=== PATIENT | female | born 1990 ===

== ENCOUNTER 2020-04-19 10:02 | Outpatient (REF) | payer OTHER, SELFPAY ==
[2020-04-19 10:30] LABS: MANUAL DIFF FLAG NO
[2020-04-19 10:34] LABS: Basophils Percent Auto 0.4 % (0-2); Eosinophils Absolute Auto 0.2 X10*3/uL (0.0-0.4); Eosinophils Percent Auto 3.1 % (0-4); Hematocrit 36.9 % (37-47); Hemoglobin 11.3 g/dl (12.0-16.0); Imm Gran Abs Auto 0.02 X10*3/uL (0.00-0.03); Imm Gran Pct Auto 0.3 % (0.0-0.4); Lymphocytes Absolute Auto 1.5 X10*3/uL (1.2-4.9); Lymphocytes Percent Auto 20.7 % (20-40); Mean Corpuscular HGB Conc 30.6 g/dl (31.0-35.0); Mean Corpuscular Hemoglobin 23.1 pg (27.0-33.0); Mean Corpuscular Volume 75.5 fL (80-98); Mean Platelet Volume 9.7 fL (9.4-12.3); Monocytes Absolute Auto 0.5 X10*3/uL (0.1-1.2); Monocytes Percent Auto 6.4 % (2-11); Neutrophils Absolute Auto 5.1 X10*3/uL (2.0-8.3); Neutrophils Percent Auto 69.1 % (45-73); Platelet Count 407 X10*3/uL (160-400); Red Blood Count 4.89 X10*6/uL (4.20-5.50); White Blood Count 7.4 X10*3/uL (4.8-10.8)
[2020-04-19 11:10] LABS: Alanine Aminotransferase 13 U/L (0-31); Albumin Level 4.1 g/dL (3.5-5.0); Alkaline Phosphatase 89 U/L (39-117); Anion Gap 12 (12-20); Aspartate Amino Transferase 12 U/L (5-31); Bilirubin Total 0.4 mg/dL (0.0-1.0); Blood Urea Nitrogen 6 mg/dL (9-16); Carbon Dioxide 26 mmol/L (22-29); Chloride 104 mmol/L (96-108); Cholesterol 159 mg/dL; Estimated Glomerular Filt Rate > 60; Glucose Fasting 84 mg/dL (60-99); HDL Cholesterol 48 mg/dL; LDL Cholesterol Calculated 102 mg/dl; Sodium 138 mmol/L (135-145); Total Protein 7.5 g/dL (6.5-8.0); Triglycerides 48 mg/dL
[2020-04-19 11:24] LABS: Syphilis Screen Nonreactive (Nonreactive)
[2020-04-20 09:02] LABS: HIV AB/AG Nonreactive (Nonreactive); HIV Num 1 0.06 S/CO (0.00-0.99); ~HepC Num1 0.11 S/CO (0.00-0.79); ~Hepatitis C Antibody Nonreactive (Nonreactive)
[2020-04-20 09:27] LABS: Herpes Simplex Type 1 IgG >58.00 index; Herpes Simplex Type 2 IgG <0.90 index
== END 2020-04-19 10:03 | disposition home or self-care (01) ==
LOC: HO.LAB 10:02
PROVIDERS: PCP Internal Medicine; Visit Provider Internal Medicine
DX: Z00.00 Encounter for general adult medical examination without abnormal findings (principal); E11.9 Type 2 diabetes mellitus without complications; Z20.2 Contact with and (suspected) exposure to infections with a predominantly sexual mode of transmission
CPT/HCPCS: 36415; 80053; 80061; 85025; 86695; 86696; 86780; 86803; 87389

== ENCOUNTER 2020-10-06 01:19 | Inpatient (IN) | payer OTHER, SELFPAY ==
[2020-10-06] VITALS (13 sets, daily range): BP systolic 101–140; BP diastolic 53–76; PULSE 60–93; RESP 14–18; TEMP 36.1–37.4; O2SAT 93–100; BMI 42.0
--- NOTE | ~2020-10-06 | US_ITS ---
EXAMINATION: US ABDOMEN LIMITED CLINICAL INFORMATION: Gallbladder with known gallstones. Pain.. COMPARISON: None TECHNIQUE: Real-time imaging of the right upper quadrant abdominal viscera. FINDINGS: PANCREAS: Pancreatic head and body are unremarkable. Tail is obscured by gas. LIVER: The liver is normal in size. The liver contour is normal. There is diffuse increased liver parenchymal echogenicity, consistent with hepatic steatosis. No focal hepatic lesion. There is no intrahepatic biliary duct dilatation seen. GALLBLADDER: Stones and sludge are seen in the gallbladder lumen. The gallbladder wall measures 0.3 cm in thickness, the upper limit of normal. No wall edema or pericholecystic fluid. The offset label rewinder reports a positive sonographic Burrows's sign. COMMON BILE DUCT: Normal in caliber measuring 0.3 cm in diameter. RIGHT KIDNEY: Normal. No hydronephrosis. No renal calculi or focal parenchymal lesions. The kidney measures 10.7 cm in maximum dimension. FREE FLUID: None. US/US abdomen limited IMPRESSION: Cholelithiasis with gallbladder sludge. Gallbladder wall. Limited of normal in thickness with offset label rewinder reported positive Burrows's sign. This is suspicious for cholecystitis. If clinically indicated a nuclear medicine biliary scan could be performed.
--- NOTE | 2020-10-06 01:32 | ED.ABDPAIN ---
HPI - Abdominal Pain General Chief Complaint: Abdominal Pain Stated Complaint: gallstones Time Seen by Provider: 10/06/20 01:24 Source: patient Mode of arrival: ambulatory Limitations: no limitations History of Present Illness HPI narrative: dx with gallstones on 10/04 at [facility] told to follow up with surgery as outpatient - PRN tylenol and motrin for pain MD elicited complaint: abdominal pain Pertinent past history: other (gallstones) Onset (ago): day(s) (since 10/03 but ate nuts and had another attack tonight) Pain Consistency: intermittent Location: RUQ Severity: moderate Quality: stabbing Radiation: RUQ and epigastric Migration to: no migration Exacerbating factors: eating Relieving factors: nothing Context: history of similar episodes Associated symptoms: nausea and vomiting Related Data Home Medications Medication Instructions Recorded Confirmed ofloxacin 1 drp OPHTHALMIC-RIGHT QID 10/06/20 10/06/20 Allergies Allergy/AdvReac Type Severity Reaction Status Date / Time No Known Allergies Allergy Verified 08/21/20 14:10 Review of Systems Review of Systems Constitutional : No Weight loss, No Fever, No Chills ENT/Mouth : No sore throat, No Rhinorrhea Eyes: No Swelling, No Redness Cardiovascular : No Chest Pain, No SOB, NoEdema Respiratory : No Cough, No Sputum, No Wheezing Gastrointestinal : Positive Nausea, Positive Vomiting, no Diarrhea, positive abdominal Pain, No Hematochezia, No Melena Genitourinary : No Dysuria, No Urinary Frequency, No Hematuria, No Urgency Musculoskeletal : No joint pain, No Myalgias, No Joint Swelling Skin : No Skin Lesions, No rash Neuro : No Weakness, No Numbness, No Dizziness, No Headache Psych : No Anxiety/Panic, No Depression Heme/Lymph: No Bruising, No Lymphadenopathy Endocrine : No Polyuria, No Polydipsia All other systems reviewed and are negative. Physical Exam Vital Signs: Vital Signs: Last Vital Signs Temp 98.6 F 10/06/20 04:00 Pulse 65 10/06/20 06:00 Resp 15 10/06/20 06:00 BP 122/53 L 10/06/20 06:00 Pulse Ox 98 10/06/20 06:00 Body Mass Index 42.0 Appearance: Alert. Oriented X3. No acute distress. Eyes: Pupils equal, round and reactive to light. ENT: Pharynx normal. Neck: Normal inspection. Neck supple. CVS: Normal heart rate and rhythm. Pulses normal. Respiratory: No respiratory distress. Breath sounds normal. Abdomen: Soft and moderate RUQ ttp + [place] sign no rebound or guarding Skin: Skin warm and dry. Normal skin color. Normal skin turgor. Extremities: No lower extremity edema. No calf ttp Neuro: Oriented X 3. No motor deficit. No sensory deficit. Course Course Course Narrative: no signs of sepsis at this time. will consult surgery in AM. IV zosyn no signs of sepsis at this time signed out to Dr. Donato pending evaluation by Dr. Mckeon MDM - Abdominal Pain MDM Narrative Medical decision making narrative: 29 yo female known gallstones dx on 10/04 here with another attack post eating nuts likely - at this time labs, IVF, IV morphine/Toradol for pain, US to evaluate for acute cholecystitis, dispo per results and improvement Differential Diagnosis Differential diagnosis: Likely abdominal pain and gastritis; Unlikely aortic dissection and acute appendicitis Lab Data Result diagrams: 10/06/20 02:04 10/06/20 02:04 Labs: Lab Results 10/06/20 10/06/20 10/06/20 Range/Units 02:04 02:04 02:04 WBC 11.1 H (4.8-10.8) X10*3/uL RBC 4.60 (4.20-5.50) X10*6/uL Hgb 10.8 L (12.0-16.0) g/dl Hct 34.2 L (37-47) % MCV 74.3 L (80-98) fL MCH 23.5 L (27.0-33.0) pg MCHC 31.6 (31.0-35.0) g/dl RDW 15.4 (11.0-16.0) % Plt Count 395 (160-400) X10*3/uL MPV 9.6 (9.4-12.3) fL Immature Gran % (Auto) 0.2 (0.0-0.4) % Neut % (Auto) 65.7 (45-73) % Lymph % (Auto) 21.9 (20-40) % [place] % (Auto) 6.9 (2-11) % Eos % (Auto) 5.1 H (0-4) % Baso % (Auto) 0.2 (0-2) % Lymph # (Auto) 2.4 (1.2-4.9) X10*3/uL [place] # (Auto) 0.8 (0.1-1.2) X10*3/uL Eos # (Auto) 0.6 H (0.0-0.4) X10*3/uL Baso # (Auto) 0.0 (0.0-0.2) X10*3/uL Abs Immat Gran (auto) 0.02 (0.00-0.03) X10*3/uL Absolute Neuts (auto) 7.3 (2.0-8.3) X10*3/uL Absolute Nucleated RBC 0.000 (0.0-0.012) X10*3/uL Nucleated RBC % (auto) 0.0 (0.0-0.2) /100WBC Sodium 139 (135-145) mmol/L Potassium 3.8 (3.3-5.1) mmol/L Chloride 106 (96-108) mmol/L Carbon Dioxide 26 (22-29) mmol/L Anion Gap 11 L (12-20) BUN 8 L (9-16) mg/dL Creatinine 0.70 (0.5-1.4) mg/dL Estim Creat Clear Calc 124.1 Estimated GFR > 60 Random Glucose 108 (60-115) mg/dL Calcium 9.4 (8.4-10.2) mg/dL Magnesium 1.7 (1.6-2.6) mg/dL Total Bilirubin 0.2 (0.0-1.0) mg/dL Direct Bilirubin < 0.2 (0.0-0.5) mg/dL AST 10 (5-31) U/L ALT 11 (0-31) U/L Alkaline Phosphatase 94 (39-117) U/L Total Protein 6.9 (6.5-8.0) g/dL Albumin 3.7 (3.5-5.0) g/dL Lipase 18 (8-78) U/L Urine Color YELLOW Urine Appearance CLOUDY Urine pH 7.5 (5.0-8.0) Ur Specific [place] 1.020 (1.005-1.025) Urine Protein NEG (NEG-TRACE) MG/DL Urine Glucose (UA) NEG (NEG) MG/DL Urine Ketones NEG (NEG) MG/DL Urine Blood NEG (NEG) Urine Nitrite NEG (NEG) Ur Leukocyte Esterase NEG (NEG) Urine Test (NEGATIVE) COVID-19 ([facility]) (Negative) COVID-19 Clin Com 10/06/20 10/06/20 Range/Units 02:04 04:05 WBC (4.8-10.8) X10*3/uL RBC (4.20-5.50) X10*6/uL Hgb (12.0-16.0) g/dl Hct (37-47) % MCV (80-98) fL MCH (27.0-33.0) pg MCHC (31.0-35.0) g/dl RDW (11.0-16.0) % Plt Count (160-400) X10*3/uL MPV (9.4-12.3) fL Immature Gran % (Auto) (0.0-0.4) % Neut % (Auto) (45-73) % Lymph % (Auto) (20-40) % [place] % (Auto) (2-11) % Eos % (Auto) (0-4) % Baso % (Auto) (0-2) % Lymph # (Auto) (1.2-4.9) X10*3/uL [place] # (Auto) (0.1-1.2) X10*3/uL Eos # (Auto) (0.0-0.4) X10*3/uL Baso # (Auto) (0.0-0.2) X10*3/uL Abs Immat Gran (auto) (0.00-0.03) X10*3/uL Absolute Neuts (auto) (2.0-8.3) X10*3/uL Absolute Nucleated RBC (0.0-0.012) X10*3/uL Nucleated RBC % (auto) (0.0-0.2) /100WBC Sodium (135-145) mmol/L Potassium (3.3-5.1) mmol/L Chloride (96-108) mmol/L Carbon Dioxide (22-29) mmol/L Anion Gap (12-20) BUN (9-16) mg/dL Creatinine (0.5-1.4) mg/dL Estim Creat Clear Calc Estimated GFR Random Glucose (60-115) mg/dL Calcium (8.4-10.2) mg/dL Magnesium (1.6-2.6) mg/dL Total Bilirubin (0.0-1.0) mg/dL Direct Bilirubin (0.0-0.5) mg/dL AST (5-31) U/L ALT (0-31) U/L Alkaline Phosphatase (39-117) U/L Total Protein (6.5-8.0) g/dL Albumin (3.5-5.0) g/dL Lipase (8-78) U/L Urine Color Urine Appearance Urine pH (5.0-8.0) Ur Specific [place] (1.005-1.025) Urine Protein (NEG-TRACE) MG/DL Urine Glucose (UA) (NEG) MG/DL Urine Ketones (NEG) MG/DL Urine Blood (NEG) Urine Nitrite (NEG) Ur Leukocyte Esterase (NEG) Urine Test NEGATIVE (NEGATIVE) COVID-19 ([facility]ED) Negative (Negative) COVID-19 Clin Com See Note Discharge Plan Discharge Clinical Impression: Biliary colic Abdominal pain Qualifiers: Abdominal location: right upper quadrant Qualified Code(s): R10.11 - Right upper quadrant pain Prescriptions: No Action ofloxacin 0.3 % drops 1 drp ophthalmic-Right QID RF: 0 PMFSH Past Medical History Attestation statement: The following information was validated with the patient. Medical History Gallstone Surgical History History of 3 sections History of tubal ligation Family History Family History Father HTN (hypertension) Diabetes Mother No problems noted. Maternal Grandfather Prostate cancer Social History Social History Alcohol intake: never Patient Tobacco Use Status: Never used Tobacco Use of substances other than those prescribed or required for medical reasons: No Advance Directives: No Advance Directives Information Provided: No Patient : No
[2020-10-06 02:09] LABS: MANUAL DIFF FLAG NO
[2020-10-06 02:10] LABS: Basophils Percent Auto 0.2 % (0-2); Eosinophils Absolute Auto 0.6 X10*3/uL (0.0-0.4); Eosinophils Percent Auto 5.1 % (0-4); Hematocrit 34.2 % (37-47); Hemoglobin 10.8 g/dl (12.0-16.0); Imm Gran Abs Auto 0.02 X10*3/uL (0.00-0.03); Imm Gran Pct Auto 0.2 % (0.0-0.4); Lymphocytes Absolute Auto 2.4 X10*3/uL (1.2-4.9); Lymphocytes Percent Auto 21.9 % (20-40); Mean Corpuscular HGB Conc 31.6 g/dl (31.0-35.0); Mean Corpuscular Hemoglobin 23.5 pg (27.0-33.0); Mean Corpuscular Volume 74.3 fL (80-98); Mean Platelet Volume 9.6 fL (9.4-12.3); Monocytes Absolute Auto 0.8 X10*3/uL (0.1-1.2); Monocytes Percent Auto 6.9 % (2-11); Neutrophils Absolute Auto 7.3 X10*3/uL (2.0-8.3); Neutrophils Percent Auto 65.7 % (45-73); Platelet Count 395 X10*3/uL (160-400); Red Cell Distribution Width 15.4 % (11.0-16.0); White Blood Count 11.1 X10*3/uL (4.8-10.8)
[2020-10-06 02:12] LABS: Glucose Urine UA NEG (NEG); Leukocyte Esterase Urine NEG (NEG); Nitrite Urine NEG (NEG); PH 7.5 (5.0-8.0); Urine Blood NEG (NEG); Urine Ketones NEG (NEG); Urine Protein NEG (NEG-TRACE)
[2020-10-06 02:14] LABS: Appearance Urine CLOUDY; Color Urine YELLOW
[2020-10-06 02:15] LABS: UPreg QC Valid YES; Urine Pregnancy NEGATIVE (NEGATIVE)
[2020-10-06 02:38] LABS: Alanine Aminotransferase 11 U/L (0-31); Albumin Level 3.7 g/dL (3.5-5.0); Alkaline Phosphatase 94 U/L (39-117); Anion Gap 11 (12-20); Aspartate Amino Transferase 10 U/L (5-31); Bilirubin Direct < 0.2 mg/dL (0.0-0.5); Bilirubin Total 0.2 mg/dL (0.0-1.0); Blood Urea Nitrogen 8 mg/dL (9-16); Calcium 9.4 mg/dL (8.4-10.2); Carbon Dioxide 26 mmol/L (22-29); Chloride 106 mmol/L (96-108); Creatinine Clr Calc Pharmacy 124.1; Estimated Glomerular Filt Rate > 60; Glucose Random 108 mg/dL (60-115); Lipase 18 U/L (8-78); Magnesium 1.7 mg/dL (1.6-2.6); Potassium 3.8 mmol/L (3.3-5.1); Sodium 139 mmol/L (135-145); Total Protein 6.9 g/dL (6.5-8.0)
[2020-10-06] MEDS: 0.9 % Sodium Chloride 1,000 ML 999 ML IVCONT (02:47)
[2020-10-06] MEDS: Ketorolac Tromethamine 30 MG/ML VIAL IVPUSH (02:47)
[2020-10-06] MEDS: Morphine Sulfate 4 MG/ML CARTRIDGE IVPUSH (02:48)
[2020-10-06] MEDS: ondansetron HCL 4 MG/2 ML VIAL IVPUSH (02:48)
[2020-10-06] MEDS: Piperacillin Sodium/Tazobactam 3.375 GM in 0.9 % Sodium Chloride 50 ML IV (04:02)
[2020-10-06 04:30] LABS: COVID-19 Test Negative (Negative)
--- NOTE | 2020-10-06 07:37 | HE.PHANOTE ---
Pharmacy has completed the medication reconciliation and there were no significant medication issues requiring provider attention. Rubia Jalloh PharmD
--- NOTE | 2020-10-06 08:30 | PC.NURSE ---
Respiratory therapy at bedside.
--- NOTE | 2020-10-06 09:00 | PC.NURSE ---
This specification writer called to inquire on pt's plan of care and surgical consult. Was told Dr. Mckeon was in surgery at the moment. No specific time given. Pt sleeping at this time.
--- NOTE | 2020-10-06 14:14 | P.HPGS_ITS ---
History of Present Illness History of Present Illness Date of Service: 10/06/20 Narrative: Zhanna Schaffer is a 29 year old female who came to the emergency room last night because of abdominal pain. She describes this as on the right upper quadrant and she states that she has had been having this periodically for about 4 months now. However, she says this has been severe since yesterday. She has some nausea as well. She says the pain has been persistent since last night. She denies any diarrhea. She says she was in [facility] ER 2 days ago with the same symptoms. She says that she was sent home from there despite her pain. Review of Systems Constitutional: Constitutional: Denies chills and Denies fever(s) Cardiovascular: Cardiovascular: Denies chest pain, Denies dyspnea and Denies dyspnea on exertion Respiratory: Respiratory: Denies cough, Denies dyspnea and Denies dyspnea on exertion Gastrointestinal: Gastrointestinal: Denies hematochezia and Denies change in bowel habits Genitourinary: Genitourinary: Denies hematuria Musculoskeletal: Musculoskeletal: Denies back pain and Denies limited range of motion Neurologic: Denies focal weakness and Denies convulsions Psychiatric: Psychiatric: Denies depression and Denies mood swings PMFSH Past Medical History Medical History (Updated 10/06/20 @ 14:18 by Esequiel Mckeon MD) Gallstone Gallstones Family History Family History Father HTN (hypertension) Diabetes Mother No problems noted. Maternal Grandfather Prostate cancer Surgical History Surgical History History of 3 sections History of tubal ligation Social History Social History Alcohol intake: never Patient Tobacco Use Status: Never used Tobacco Second Hand Smoke Exposure: No Use of substances other than those prescribed or required for medical reasons: No Are you DNR?: No Advance Directives: No Advance Directives Information Provided: No Advance Directives on File: No Patient : No Meds Allergies Allergy/AdvReac Type Severity Reaction Status Date / Time No Known Allergies Allergy Verified 08/21/20 14:10 Active Medications: Current Medications Generic Name Dose Route Start Last Admin Trade Name Freq PRN Reason Stop Dose Admin Cefotetan Disodium 2 gm/ 50 mls @ 100 mls/hr 10/06/20 14:11 Sodium Chloride IV 10/06/20 14:40 PREOP ONE Pharmacy Consult 1 each 10/06/20 02:59 Consult Rx Perform Med Rec MISCELLANE ONCE PRN Consult order Sodium Chloride 3 ml 10/06/20 16:00 0.9 % Sodium Chloride Flush 3 Ml Syringe IVFLUSH QSHIFT FABY Physical Exam Vital Signs: Vital Signs: Last Vital Signs Temp 98.6 F 10/06/20 04:00 Pulse 65 10/06/20 06:00 Resp 15 10/06/20 06:00 BP 122/53 L 10/06/20 06:00 Pulse Ox 98 10/06/20 06:00 Body Mass Index 42.0 Const: General: no acute distress Orientation/consciousness: patient oriented x3 Neck: Neck: Yes no lymphadenopathy Resp: Auscultation: clear to auscultation bilaterally Cardio: Rhythm: regular rhythm GI: Other: Tender on the right upper quadrant Palpation (GI): Soft to palpation, nontender and no guarding Neuro: General: patient oriented x3 Results Results Labs: Short CBC 10/06/20 Range/Units 02:04 WBC 11.1 H (4.8-10.8) X10*3/uL Hgb 10.8 L (12.0-16.0) g/dl Hct 34.2 L (37-47) % Plt Count 395 (160-400) X10*3/uL BMP 10/06/20 02:04 Sodium 139 Potassium 3.8 Chloride 106 Carbon Dioxide 26 BUN 8 L Creatinine 0.70 Calcium 9.4 Liver Function 10/06/20 Range/Units 02:04 Total Bilirubin 0.2 (0.0-1.0) mg/dL Direct Bilirubin < 0.2 (0.0-0.5) mg/dL AST 10 (5-31) U/L ALT 11 (0-31) U/L Alkaline Phosphatase 94 (39-117) U/L Albumin 3.7 (3.5-5.0) g/dL Urine 10/06/20 10/06/20 Range/Units 02:04 02:04 Urine Color YELLOW Urine Appearance CLOUDY Urine pH 7.5 (5.0-8.0) Ur Specific [place] 1.020 (1.005-1.025) Urine Protein NEG (NEG-TRACE) MG/DL Urine Glucose (UA) NEG (NEG) MG/DL Urine Test NEGATIVE (NEGATIVE) Abdominal ultrasound report/results: report reviewed and image reviewed Assessment and Plan (1) Gallstones: Status: Acute She has gallstones with persistent right upper quadrant pain. She says she does not feel she will be able to go home with this pain. Her ultrasound shows gallstones without obvious gallbladder wall thickening. However, the patient states that she has been having this for months now but this has been persistent since yesterday. I will therefore schedule her for laparoscopic cholecystectomy, possible open cholecystectomy now. I explained to her the technique of this procedure. I re viewed the risks including but not limited to bleeding, infection, injury to the bowel, liver, bile ducts, as well as the benefits and alternatives. She says she wants to proceed today. Her LFTs are within normal. Quality Stroke Does the patient have a stroke diagnosis?: No VTE Prior VTE?: No VTE Risk Level:: Surgical - low VTE Device Contraindication: Treatment Not Indicated VTE Drug Contraindication: Treatment Not Indicated Procedures Date of Service Date of Service: 10/06/20
--- NOTE | 2020-10-06 14:27 | PC.NURSE ---
Dr. Mckeon in to ed to evaluate pt for surgery. Report given to nurse in short stay. Pt transported to surgery.
--- NOTE | 2020-10-06 14:35 | P.CONAN_ITS ---
[facility] Active Problems Active Problems: All Active Problems (Updated 10/06/20 @ 14:18 by Esequiel escamilla MD) Gallstones (Acute) Physical exam, pre-employment (Acute) Physical exam (Acute) Exposure to STD (Acute) Contact dermatitis (Acute) Biliary colic (Acute) Abdominal pain (Acute) Past Medical History Medical History (Updated 10/06/20 @ 14:18 by Esequiel Mckeon MD) Gallstone Gallstones Family History Family History Father HTN (hypertension) Diabetes Mother No problems noted. Maternal Grandfather Prostate cancer Surgical History Surgical History History of 3 sections History of tubal ligation Social History Social History Alcohol intake: never Patient Tobacco Use Status: Never used Tobacco Second Hand Smoke Exposure: No Use of substances other than those prescribed or required for medical reasons: No Are you DNR?: No Advance Directives: No Advance Directives Information Provided: No Advance Directives on File: No Patient : No Meds Allergies Allergy/AdvReac Type Severity Reaction Status Date / Time No Known Allergies Allergy Verified 08/21/20 14:10 Active Medications: Current Medications Generic Name Dose Route Start Last Admin Trade Name Freq PRN Reason Stop Dose Admin Cefotetan Disodium 2 gm/ 50 mls @ 100 mls/hr 10/06/20 14:11 Sodium Chloride IV 10/06/20 14:40 PREOP ONE Pharmacy Consult 1 each 10/06/20 02:59 Consult Rx Perform Med Rec MISCELLANE ONCE PRN Consult order Sodium Chloride 3 ml 10/06/20 16:00 0.9 % Sodium Chloride Flush 3 Ml Syringe IVFLUSH QSHIFT FABY Sodium Chloride 3 ml 10/06/20 16:00 0.9 % Sodium Chloride Flush 3 Ml Syringe IVFLUSH QSHIFT FABY Home Medications Medication Instructions Recorded Confirmed Last Taken Type No Known Home Meds 10/06/20 10/06/20 Unknown History Exam Exam Date and Time: October 06, 2020 1435 Height,Weight and Vital Signs: Height 5 ft Weight 97.522 kg Last Vital Signs Temp 97.5 F 10/06/20 14:22 Pulse 73 10/06/20 14:22 Resp 18 10/06/20 14:22 BP 101/56 L 10/06/20 14:22 Pulse Ox 98 10/06/20 14:22 Pertinent Lab Results Pertinent Lab Results: Laboratory Tests 10/06/20 10/06/20 10/06/20 02:04 02:04 02:04 WBC 11.1 H RBC 4.60 Hgb 10.8 L Hct 34.2 L MCV 74.3 L MCH 23.5 L MCHC 31.6 RDW 15.4 Plt Count 395 MPV 9.6 Immature Gran % (Auto) 0.2 Neut % (Auto) 65.7 Lymph % (Auto) 21.9 [place] % (Auto) 6.9 Eos % (Auto) 5.1 H Baso % (Auto) 0.2 Lymph # (Auto) 2.4 [place] # (Auto) 0.8 Eos # (Auto) 0.6 H Baso # (Auto) 0.0 Abs Immat Gran (auto) 0.02 Absolute Neuts (auto) 7.3 Absolute Nucleated RBC 0.000 Nucleated RBC % (auto) 0.0 Sodium 139 Potassium 3.8 Chloride 106 Carbon Dioxide 26 Anion Gap 11 L BUN 8 L Creatinine 0.70 Estim Creat Clear Calc 124.1 Estimated GFR > 60 Random Glucose 108 Calcium 9.4 Magnesium 1.7 Total Bilirubin 0.2 Direct Bilirubin < 0.2 AST 10 ALT 11 Alkaline Phosphatase 94 Total Protein 6.9 Albumin 3.7 Lipase 18 Urine Color YELLOW Urine Appearance CLOUDY Urine pH 7.5 Ur Specific [place] 1.020 Urine Protein NEG Urine Glucose (UA) NEG Urine Ketones NEG Urine Blood NEG Urine Nitrite NEG Ur Leukocyte Esterase NEG Urine Test COVID-19 ([facility]) COVID-19 Clin Com 10/06/20 10/06/20 02:04 04:05 WBC RBC Hgb Hct MCV MCH MCHC RDW Plt Count MPV Immature Gran % (Auto) Neut % (Auto) Lymph % (Auto) [place] % (Auto) Eos % (Auto) Baso % (Auto) Lymph # (Auto) [place] # (Auto) Eos # (Auto) Baso # (Auto) Abs Immat Gran (auto) Absolute Neuts (auto) Absolute Nucleated RBC Nucleated RBC % (auto) Sodium Potassium Chloride Carbon Dioxide Anion Gap BUN Creatinine Estim Creat Clear Calc Estimated GFR Random Glucose Calcium Magnesium Total Bilirubin Direct Bilirubin AST ALT Alkaline Phosphatase Total Protein Albumin Lipase Urine Color Urine Appearance Urine pH Ur Specific [place] Urine Protein Urine Glucose (UA) Urine Ketones Urine Blood Urine Nitrite Ur Leukocyte Esterase Urine Test NEGATIVE COVID-19 ([facility]) Negative COVID-19 Clin Com See Note Airway Mallampati Class: III TM Dist: >3cm Neck ROM: Full Heart: rrr Lungs: cta Assessment and Plan Assessment Anesthesia Assessment: Anesthesia Plan Discussed and Chart Reviewed Final Anesthetic Review NPO: Yes ASA Class: II and Emergency Final Preanesthetic Review: No Changes in Pt Med Stat and Consent Obtained/Reviewed Patient Risk: Intermediate Procedure Risk: Intermediate Anesthetic Plan Anesthetic Plan: GA Disposition: Standard PACU
[2020-10-06] MEDS: cefoTEtan disodium 2 GM in 0.9 % Sodium Chloride 50 ML IV (14:43)
[2020-10-06] MEDS: HYDROmorphone HCl 0.5 MG/0.5 ML SYRINGE 0.25 MG IVPUSH ×2 (16:10→16:15)
--- NOTE | 2020-10-06 16:11 | P.OP_ITS ---
Operative Note Operative Note Date of Service: 10/06/20 Narrative: Preop diagnosis: Gallstones with pain Postop diagnosis: Acute cholecystitis Procedure: Laparoscopic cholecystectomy Surgeon: Esequiel Mckeon MD Environmental Services Supervisor none The patient is a 29-year-old female who came to the emergency room last night because of right upper quadrant pain. She states the has been having this on and off for a few months now but has been severe the past 1-2 days. She had been to [facility] on October 06 and was discharged there from the ER. She continued to have pain so she came to the emergency room last night. Her ultrasound showed gallstones. However, she stated that she could not go home because of her persistent pain. She wanted to proceed with laparoscopic cholecystectomy. She understood technique of the procedure and was aware of the risks, benefits, and alternatives . She was brought to the operating room and placed supine on the table under general anesthesia via endotracheal tube. A surgical time-out was done. The patient received Cefotan 2 g IV preoperatively. The abdomen was prepped and draped in the usual sterile fashion. A short supraumbilical incision was made in the skin using a blade 15. This was carried down through the full-thickness of the skin subcutaneous fat down to the fascia. please note that the patient had a thick amount of subcutaneous fat in view of her obesity. The fascia was exposed and we incised the fascia to enter the peritoneum. A Jack port was placed through this incision. We then used a 10 mm flat laparoscope and from here on, the rest of the procedure was done under vision with this laparoscope. With laparoscopic visualization, I proceeded to insert a 5/12 mm port in the epigastric area below the subcostal margin. 5 mm ports were introduced a small incision below the subcostal margin along the anterior axillary line and the midclavicular line. Graspers were placed through these working ports. The patient was placed in head-up and [id number] position. Examination of the subhepatic space showed that the gallbladder was erythematous and edematous. This was not markedly distended. I will was able to apply a grasper at the fundus of the gallbladder and this was used to retract the gallbladder cephalad. By doing so was able to apply another grasper towards the pouch of the gallbladder which was used to retract this laterally. At this point therefore the gallbladder was being retracted in a lateral and cephalad fashion to put the area of the cystic duct on stretch. I proceeded to gently dissect the of the gallbladder by carefully peeling off some fibrous and using the [place] dissector. By doing so were able to identify the cystic duct. I was able to clearly define the confluence of the cystic duct with the neck of the gallbladder. By this dissection were able to also achieve a critical view of the hepatocystic triangle. The cystic artery was clearly seen. There were no other tubular structures in this area With the confluence of the neck of the gallbladder with the cystic duct confirmed I therefore applied clips on the cystic duct with 2 clips being applied distally with the cystic duct was transected between clips using Endo scissors. I then applied clips on the cystic artery and this was transected between clips as well with Endo scissors With traction on the gallbladder wall away from the liver bed I proceeded to divide across the hilum with the electrocautery spatula with careful examination of the rest of the hilum to make sure that there were no other tubular structures nor vessels. I reached the interface of the gallbladder wall and the liver bed. I proceeded therefore to incise the peritoneum of the gallbladder wall with the electrocautery spatula. I then proceeded define a plane of dissection between the gallbladder wall and the liver bed using combination of blunt dissection with the tip of the spatula as well as electrocautery itself and proceeded to carefully separate the gallbladder from along this well-defined plane of dissection. We proceeded with this of dissection all way to the fundus until the entire gallbladder was completely . The gallbladder was retrieved through an endobag through the umbilical incision. I reinserted all ports and insufflated. I examined the subhepatic space. The clips were intact and there was no evidence of any bleeding or any bile leak I examined all 4 quadrants and there was no other pathology Once states was ensured in the subhepatic space, I proceeded to therefore desufflate through the port sites. I removed all ports under vision with the laparoscope. The Jack port was removed last. The fascia of the umbilical incision was closed with [id number] Dexon 0 stitch. Skin closure was achieved on all incisions using Dexon 4-0 subcuticular running sutures. Steri- Strips and dressings were applied All incisions were infiltrated with Marcaine 0.5% for postop analgesia and the procedure was then completed The patient tolerated procedure well. There were no complication noted. Initial fine counts of sponges and instruments were correct. Estimated blood loss was about 5 cc The patient was then extubated without difficulty and transferred to the [facility] very room with stable vital signs.
--- NOTE | 2020-10-06 16:19 | P.BOP_ITS ---
Brief Operative Note Date of Service: 10/06/20 Pre-op diagnosis: Gallstones Post-op diagnosis: same ( acute cholecystitis) Procedure: laparoscopic cholecystectomy Surgeon: Esequiel Mckeon MD Anesthesia: GETA Was an [employer] Concierge used for this Procedure?: No Estimated blood loss (mL): 5 Pathology: other ( gallbladder) Condition: stable Disposition: PACU
--- NOTE | 2020-10-06 17:14 | PM.EVENT ---
Event Note Date of Service: 10/06/20 Event Note: patient seen postop - underwent laparoscopic cholecystectomy this afternoon seems to have adequate pain control stable vital signs mild acute cholecystitis noted significant other updated by phone likely home tomorrow discharge papers ready
[2020-10-06] MEDS: 0.9 % Sodium Chloride Flush 3 ML SYRINGE IVFLUSH (17:19)
[2020-10-06] MEDS: Lactated Ringers 1,000 ML 80 ML IVCONT (17:19)
[2020-10-06] MEDS: oxyCODONE HCl Immed Release 5 MG TABLET 10 MG PO ×2 (17:33→21:17)
[2020-10-07] VITALS (7 sets, daily range): BP systolic 102–114; BP diastolic 56–60; PULSE 55–84; RESP 15–18; TEMP 36.1–36.6; O2SAT 94–99
[2020-10-07] MEDS: Ketorolac Tromethamine 15 MG/ML VIAL IVPUSH (01:14)
--- NOTE | 2020-10-07 08:23 | HO.POSTANES ---
Post Anesthesia Evaluation Post Anesthesia Evaluation Vital Signs: Vital Signs Temp Pulse Resp BP Pulse Ox 10/07/20 07:58 97.0 F 66 18 103/59 L 99 10/07/20 03:28 97.9 F 55 16 112/56 L 98 10/07/20 00:00 97 F 60 16 105/57 L 96 10/06/20 23:20 97 F 60 16 105/57 L 99 Anesthesia: General Endotracheal-GETA Mental Status: Awake Pain Control: Satisfactory Nausea/Vomiting: None Hydration: Adequate Anesthesia-Related Issues: No Anes. Related Issues
[2020-10-07] MEDS: oxyCODONE HCl Immed Release 5 MG TABLET 10 MG PO ×2 (08:29→15:12)
[2020-10-07] MEDS: Lactated Ringers 1,000 ML 80 ML IVCONT ×2 (08:30→16:18)
--- NOTE | 2020-10-07 10:29 | MHC.CM.PN ---
CM ATTEMPTED TO MEET WITH PT WHO WAS SLEEPING. CM WILL RETURN LATER IN THE DAY.
--- NOTE | 2020-10-07 15:04 | PM.PNGS ---
Subjective Subjective Date of Service: 10/07/20 Interval history: Reports significant incisional pain, poor appetite. Preoperative pain has resolved. Good pain control with medication. Physical Exam Vital Signs: Vital Signs: Last Vital Signs Temp 97.1 F 10/07/20 11:31 Pulse 64 10/07/20 11:31 Resp 18 10/07/20 11:31 BP 102/59 L 10/07/20 11:31 Pulse Ox 94 10/07/20 11:31 Body Mass Index 42.0 Const: Other: Sleepy, appears uncomfortable but not in acute distress Resp: Effort & Inspection: normal respiratory effort Auscultation: clear to auscultation bilaterally Cardio: Rate: regular rate Rhythm: regular rhythm GI: Other: Soft, nondistended, dressings are clean and dry. Appropriately tender in areas of incisions, otherwise soft and nontender Progress Note: A&P Assessment and plan (1) Biliary colic: Status: Acute (2) Abdominal pain: Status: Acute (3) Gallstones: Status: Acute Assessment and Plan: 29-year-old female day 1 post laparoscopic cholecystectomy for acute cholecystitis. P.o. intake not yet adequate for discharge. Continue IV fluids. Anticipate discharge tomorrow. Fall Risk Details Current Medications: Current Medications Generic Name Dose Route Start Last Admin Trade Name Freq PRN Reason Stop Dose Admin Acetaminophen 650 mg 10/06/20 16:04 Acetaminophen 325 Mg Tablet PO ONCE PRN Pain, Mild (Pain Scale 1-3) Fentanyl 25 mcg 10/06/20 16:02 Fentanyl Citrate/Pf 100 Mcg/2 Ml Vial IVPUSH Q5M PRN Pain, Moderate (Pain Scale 4-6 Hydromorphone HCl 0.25 mg 10/06/20 16:02 10/06/20 16:15 Hydromorphone Hcl 0.5 Mg/0.5 Ml Syringe IVPUSH 0.25 mg Q5M PRN Administration Pain, Severe (Pain Scale 7-10) Lactated Ringer's 1,000 mls @ 80 mls/hr 10/06/20 14:45 10/07/20 08:30 Lr IVCONT 80 mls/hr .[id number] FABY Administration Promethazine HCl 6.25 mg/ 50.25 mls @ 201 mls/hr 10/06/20 16:02 Sodium Chloride IV ONCE PRN Nausea and Vomiting Ibuprofen 600 mg 10/06/20 16:07 Ibuprofen 600 Mg Tablet PO Q6H PRN pain Morphine Sulfate 2 mg 10/06/20 17:06 Morphine Sulfate 2 Mg/Ml Cartridge IVPUSH Q3H PRN Pain, Severe (Pain Scale 7-10) Ondansetron HCl 4 mg 10/06/20 16:02 Ondansetron Hcl 4 Mg/2 Ml Vial IVPUSH ONCE PRN Nausea and Vomiting Ondansetron HCl 4 mg 10/06/20 16:04 Ondansetron Hcl 4 Mg/2 Ml Vial IVPUSH Q8H PRN Nausea Oxycodone HCl 5 mg 10/06/20 16:04 Oxycodone Hcl Immed Release 5 Mg Tablet PO ONCE PRN Pain, Severe (Pain Scale 7-10) Oxycodone HCl 10 mg 10/06/20 16:06 10/07/20 08:29 Oxycodone Hcl Immed Release 5 Mg Tablet PO 10 mg Q4H PRN Administration Pain, Moderate (Pain Scale 4-6 Pharmacy Consult 1 each 10/06/20 02:59 Consult Rx Perform Med Rec MISCELLANE ONCE PRN Consult order Sodium Chloride 3 ml 10/06/20 16:00 10/07/20 07:19 0.9 % Sodium Chloride Flush 3 Ml Syringe IVFLUSH Not Given QSHIFT [facility] Sodium Chloride 3 ml 10/06/20 16:00 10/07/20 07:19 0.9 % Sodium Chloride Flush 3 Ml Syringe IVFLUSH Not Given QSHIFT FABY Time Spent With Patient Time: Total time spent is greater than 50% in coordination of care (as documented) at patient's floor/unit and/or counseling patient: Time with patient: less than 15 minutes Procedures Date of Service Date of Service: 10/07/20 Quality Stroke Does the patient have a stroke diagnosis?: No VTE Prior VTE?: No VTE Risk Level:: Surgical - low VTE Device Contraindication: Treatment Not Indicated VTE Drug Contraindication: Treatment Not Indicated
[2020-10-07] MEDS: 0.9 % Sodium Chloride Flush 3 ML SYRINGE IVFLUSH (16:19)
[2020-10-07] MEDS: Morphine Sulfate 2 MG/ML CARTRIDGE IVPUSH (19:12)
[2020-10-08] MEDS: Lactated Ringers 1,000 ML 80 ML IVCONT
[2020-10-08] MEDS: Morphine Sulfate 2 MG/ML CARTRIDGE IVPUSH (02:17)
[2020-10-08 04:00] VITALS: BP 108/56; PULSE 63; RESP 16; TEMP 36.4; O2SAT 93
[2020-10-08 07:23] VITALS: BP 123/63; PULSE 66; RESP 17; TEMP 36.4; O2SAT 95
[2020-10-08] MEDS: oxyCODONE HCl Immed Release 5 MG TABLET 10 MG PO ×2 (07:58→13:38)
--- NOTE | 2020-10-08 08:46 | MHC.CM.PN ---
CM MET WITH PT WHO REPORTS SHE LIVES AT HOME WITH HER S/O AND CHILDREN. PT REPORTS SHE IS FULLY INDEPENDENT, HAS NO SERVICES AND NO DME. PT CONFIRMS HER PCP IS CASSIDY MIR. PT DOES NOT HAVE A HCP AND DECLINES TO COMPLETE ONE DURING ADMISSION. CURRENT DC PLAN IS HOME WITH NO SERVICES PT WILL SELF ARRANGE TRANSPORTATION
--- NOTE | 2020-10-08 11:17 | PM.PNGS ---
Subjective Subjective Date of Service: 10/08/20 Interval history: Continues to report significant incisional pain. No nausea. Tolerating clear liquid diet. Has not had any solid food yet. Physical Exam Vital Signs: Vital Signs: Last Vital Signs Temp 97.6 F 10/08/20 07:23 Pulse 66 10/08/20 07:23 Resp 17 10/08/20 07:23 BP 123/63 10/08/20 07:23 Pulse Ox 95 10/08/20 07:23 Body Mass Index 42.0 Const: General: cooperative, no acute distress and alert Resp: Effort & Inspection: normal respiratory effort Auscultation: clear to auscultation bilaterally Cardio: Rate: regular rate Rhythm: regular rhythm GI: Other: Soft, nondistended, appropriately tender in incisional areas, bowel sounds active Skin: Other: Normal color, warm and dry Progress Note: A&P Assessment and plan (1) Gallstones: Status: Acute (2) Biliary colic: Status: Acute (3) Abdominal pain: Status: Acute Assessment and Plan: Day 2 status post laparoscopic cholecystectomy for acute cholecystitis. She is improving slowly but continues to experience significant incisional pain. Will advance diet, increase activity. Anticipate discharge later today or tomorrow. Fall Risk Details Current Medications: Current Medications Generic Name Dose Route Start Last Admin Trade Name Freq PRN Reason Stop Dose Admin Acetaminophen 650 mg 10/06/20 16:04 Acetaminophen 325 Mg Tablet PO ONCE PRN Pain, Mild (Pain Scale 1-3) Ibuprofen 600 mg 10/06/20 16:07 Ibuprofen 600 Mg Tablet PO Q6H PRN pain Ondansetron HCl 4 mg 10/06/20 16:04 Ondansetron Hcl 4 Mg/2 Ml Vial IVPUSH Q8H PRN Nausea Oxycodone HCl 5 mg 10/06/20 16:04 Oxycodone Hcl Immed Release 5 Mg Tablet PO ONCE PRN Pain, Severe (Pain Scale 7-10) Oxycodone HCl 10 mg 10/06/20 16:06 10/08/20 07:58 Oxycodone Hcl Immed Release 5 Mg Tablet PO 10 mg Q4H PRN Administration Pain, Moderate (Pain Scale 4-6 Pharmacy Consult 1 each 10/06/20 02:59 Consult Rx Perform Med Rec MISCELLANE ONCE PRN Consult order Sodium Chloride 3 ml 10/06/20 16:00 10/08/20 07:05 0.9 % Sodium Chloride Flush 3 Ml Syringe IVFLUSH Not Given QSHIFT FABY Sodium Chloride 3 ml 10/06/20 16:00 10/08/20 07:05 0.9 % Sodium Chloride Flush 3 Ml Syringe IVFLUSH Not Given QSHIFT FABY Time Spent With Patient Time: Total time spent is greater than 50% in coordination of care (as documented) at patient's floor/unit and/or counseling patient: Time with patient: less than 15 minutes Procedures Date of Service Date of Service: 10/08/20 Quality Stroke Does the patient have a stroke diagnosis?: No VTE Prior VTE?: No VTE Risk Level:: Surgical - low VTE Device Contraindication: Treatment Not Indicated VTE Drug Contraindication: Treatment Not Indicated
[2020-10-08 11:37] VITALS: BP 99/54; PULSE 57; RESP 18; TEMP 36.2; O2SAT 95
[2020-10-08 15:32] VITALS: BP 107/54; PULSE 72; RESP 15; TEMP 36.1; O2SAT 95
[2020-10-08] MEDS: 0.9 % Sodium Chloride Flush 3 ML SYRINGE IVFLUSH ×3 (16:21→23:30)
[2020-10-08 19:17] VITALS: BP 105/53; PULSE 81; RESP 14; TEMP 36.1; O2SAT 96
[2020-10-08] MEDS: oxyCODONE HCl Immed Release 5 MG TABLET PO (19:57)
[2020-10-08] MEDS: Ibuprofen 600 MG TABLET PO (23:32)
[2020-10-08 23:41] VITALS: BP 100/56; PULSE 67; RESP 16; TEMP 36; O2SAT 96
[2020-10-09 03:12] VITALS: BP 98/58; PULSE 66; RESP 16; TEMP 36.1; O2SAT 94
[2020-10-09] MEDS: oxyCODONE HCl Immed Release 5 MG TABLET 10 MG PO (05:53)
[2020-10-09 07:00] VITALS: BP 131/81; PULSE 68; RESP 18; TEMP 36.4; O2SAT 97
[2020-10-09] MEDS: 0.9 % Sodium Chloride Flush 3 ML SYRINGE IVFLUSH ×2 (07:22→07:23)
--- NOTE | 2020-10-09 08:01 | PM.PNGS ---
Subjective Subjective Date of Service: 10/09/20 Interval history: feels well says she is ready to go home good GI function Physical Exam Vital Signs: Vital Signs: Last Vital Signs Temp 97.6 F 10/09/20 07:00 Pulse 68 10/09/20 07:00 Resp 18 10/09/20 07:00 BP 131/81 10/09/20 07:00 Pulse Ox 97 10/09/20 07:00 Body Mass Index 42.0 Const: General: comfortable and no acute distress Eyes: Sclerae: sclerae normal Resp: Effort & Inspection: normal respiratory effort GI: Other: incisions clean and dry Palpation (GI): Soft to palpation, not firm and nontender Progress Note: A&P Assessment and plan (1) Gallstones: Status: Acute Assessment and Plan: s/p lap mynor doing well appears ready to be discharged dc instructions reviewed (2) Acute cholecystitis: Status: Acute Fall Risk Details Current Medications: Current Medications Generic Name Dose Route Start Last Admin Trade Name Freq PRN Reason Stop Dose Admin Acetaminophen 650 mg 10/06/20 16:04 Acetaminophen 325 Mg Tablet PO ONCE PRN Pain, Mild (Pain Scale 1-3) Ibuprofen 600 mg 10/06/20 16:07 10/08/20 23:32 Ibuprofen 600 Mg Tablet PO 600 mg Q6H PRN Administration pain Ondansetron HCl 4 mg 10/06/20 16:04 Ondansetron Hcl 4 Mg/2 Ml Vial IVPUSH Q8H PRN Nausea Oxycodone HCl 10 mg 10/06/20 16:06 10/09/20 05:53 Oxycodone Hcl Immed Release 5 Mg Tablet PO 10 mg Q4H PRN Administration Pain, Moderate (Pain Scale 4-6 Pharmacy Consult 1 each 10/06/20 02:59 Consult Rx Perform Med Rec MISCELLANE ONCE PRN Consult order Sodium Chloride 3 ml 10/06/20 16:00 10/09/20 07:22 0.9 % Sodium Chloride Flush 3 Ml Syringe IVFLUSH 3 ml QSHIFT FABY Administration Sodium Chloride 3 ml 10/06/20 16:00 10/09/20 07:23 0.9 % Sodium Chloride Flush 3 Ml Syringe IVFLUSH 3 ml QSHIFT FABY Administration Time Spent With Patient Time: Total time spent is greater than 50% in coordination of care (as documented) at patient's floor/unit and/or counseling patient: Time with patient: 15 - 24 minutes Procedures Date of Service Date of Service: 10/09/20 Quality Stroke Does the patient have a stroke diagnosis?: No VTE Prior VTE?: No VTE Risk Level:: Surgical - low VTE Device Contraindication: Treatment Not Indicated VTE Drug Contraindication: Treatment Not Indicated
[2020-10-09] MEDS: Ibuprofen 600 MG TABLET PO (11:37)
--- NOTE | 2020-10-12 11:05 | PM.DS ---
DS: Providers Provider Date of Service: 10/09/20 Date of admission: 10/06/20 14:12 Primary care physician: Hugo Gamble MD DS: Diagnosis Discharge Diagnosis (1) Gallstones: Status: Acute (2) Acute cholecystitis: Status: Acute DS: Medications Discharge Medications Home Medications: Previous Rx's Medication Instructions Recorded ibuprofen 600 mg PO Q6H PRN #30 tab 10/06/20 oxycodone-acetaminophen [Percocet] 1 - 2 tab PO Q4-6H PRN #30 tab 10/06/20 DS: Summary Hospital Course Hospital Course: [age] year female who came to the ER October 06, 2020 because of right upper quadrant and epigastric pain. Her ultrasound showed gallstones. She however had persistent pain and she had already been seen in other institution 2 days prior. She therefore had stated that she could no longer go this pain. She therefore underwent laparoscopic cholecystectomy on 10/06/2020. This was an eventful. She tolerated procedure well. She was started on clear liquids postop. This was advanced following day. She had pain control issues from her incisions so she stayed in the hospital for IV pain medications. She otherwise continue to do well from GI standpoint and eventually was discharged on October 09, 2020. Time spent discussing smoking cessation with patient: 3 to 10 minutes Time Spent with Patient Time attestation: Total time spent providing and/or coordinating discharge services: Discharge coordination time: Less than 30 minutes Quality: Stroke Does the patient have a stroke diagnosis?: No Reason for No Anti-thrombotic at DC: N/A - Med Ordered Reason for No Anticoagulant at DC: N/A - Med Ordered Physical Exam Vital Signs: Vital Signs: Last Vital Signs Temp 97.6 F 10/09/20 07:00 Pulse 68 10/09/20 07:00 Resp 18 10/09/20 07:00 BP 131/81 10/09/20 07:00 Pulse Ox 97 10/09/20 07:00 Body Mass Index 42.0 DS: Data Data Completed and Pending Completed studies during hospitalization [Text1]: Pending at discharge 10/06/20 15:27 Surgical [PTH] Routine Procedures Resection of Gallbladder, Percutaneous Endoscopic Approach (10/06/20) Discharge Plan Discharge Patient Disposition: Home, Self-Care Discharge Diagnosis: acute cholecystitis Referrals: Hugo Gamble MD [Primary Care Provider] - 1 Week Esequiel Mckeon MD [Physician] - 1 Week Discharge Medications: New oxycodone-acetaminophen [Percocet] 5-325 mg tablet 1 - 2 tab PO Q4-6H PRN (Reason: pain) Qty: 30 RF: 0 ibuprofen 600 mg tablet 600 mg PO Q6H PRN (Reason: pain) Qty: 30 RF: 0 Discharge Orders: Discharge Order (Routine); Ordered 10/09/20 Ordered By: Esequiel Mckeon Activity on Discharge: No heavy lifting Stand Alone Forms: Patient Portal Discharge page Activity Restrictions/Additional Instructions: If the incision area is tender, you may apply an ice pack for short intervals (No more than 20 minutes on, followed by at least 20 minutes off). Do not apply heat. Do not use creams, lotions, or topical antibiotics unless instructed to do so by your surgeon. These can cause infection or allergic reaction. OK to shower starting October 08 Ok to change dressings with BandAids daily starting October 08 No lifting more than 20 lbs No strenuous activities Call the office for follow-up in 2 weeks - with Dr. Mckeon Call Your Doctor If: -Your temperature exceeds 101.5? F -You experience excessive pain or swelling -You have an unexpected reaction to medication -You have excessive bleeding -You experience continued vomiting/nausea -Your incision begins to separate -Your incision shows signs of infection such as increased redness, swelling, excessive pain, drainage (light blood or clear fluid is normal) or heat Care Plan Goals: pain management ffup in office no lifting Health Concerns: pain management postop Plan of Treatment: oral pain meds no lifting Assessment: doing well postop Discharge Date/Time: 10/09/20 12:47
== END 2020-10-09 12:47 | disposition home or self-care (01) | DRG 263 ==
LOC: HO.ED 14:15 → HO.EDOVER 14:41 → HO.S3 14:55
PROVIDERS: Admitting Provider Surgery; Emergency Provider Emergency Medicine; PCP Internal Medicine; Visit Provider Surgery
PROC: 0FT44ZZ Resection of Gallbladder, Percutaneous Endoscopic Approach (ICD-10-PCS; CPT 47562; principal; 2020-10-06 14:30)
DX: K80.00 Calculus of gallbladder with acute cholecystitis without obstruction (principal); Z68.41 Body mass index [BMI] 40.0-44.9, adult; E66.9 Obesity, unspecified; Z20.822 Contact with and (suspected) exposure to COVID-19
CPT/HCPCS: 47562; 36415; 76705; 80048; 80076; 81003; 81025; 83690; 83735; 85025; 87635; 88304; 99024; 99285; J1170; J1885; J2250; J2270; J2405; J2543; J3010

== ENCOUNTER → 2020-10-23 09:01 | Outpatient (BNVA) | payer OTHER, SELFPAY | PROVIDERS: PCP Internal Medicine; Referring Provider Internal Medicine; Visit Provider Surgery | DX: Z48.815 Encounter for surgical aftercare following surgery on the digestive system (principal); Z90.49 Acquired absence of other specified parts of digestive tract | CPT/HCPCS: 99212 ==

== ENCOUNTER 2020-12-06 12:45 | Outpatient (REF) | payer OTHER, SELFPAY ==
[2020-12-07 04:27] LABS: HBS Num1 1.64 mIU/mL (0-7.99); ~Hepatitis B Surface Antibody NONREACTIVE (Nonreactive)
[2020-12-08 21:11] LABS: Rubella IgG Antibody 1.17 Index
[2020-12-10 10:22] LABS: TS Negative Control Passed; TS Panel A 1; TS Panel B 0; TS Positive Control Passed; TSpotTB Negative (SeeBelow)
== END 2020-12-06 12:46 | disposition home or self-care (01) ==
LOC: HO.LAB 12:45
PROVIDERS: PCP Internal Medicine; Visit Provider Internal Medicine
DX: Z01.84 Encounter for antibody response examination (principal); Z11.1 Encounter for screening for respiratory tuberculosis; Z28.3 Underimmunization status
CPT/HCPCS: 36415; 86481; 86706; 86735; 86762; 86765; 86787

== ENCOUNTER → 2021-03-02 13:04 | Outpatient (BNVA) | payer OTHER, SELFPAY | PROVIDERS: PCP Internal Medicine; Referring Provider Internal Medicine; Visit Provider Physician Assistant ==

== ENCOUNTER → 2021-03-20 08:05 | Outpatient (BNVA) | payer OTHER, SELFPAY | PROVIDERS: PCP Internal Medicine; Visit Provider Surgery ==

== ENCOUNTER 2021-03-22 10:10 | Outpatient (REF) | payer OTHER, SELFPAY ==
[2021-03-22 10:32] LABS: MANUAL DIFF FLAG NO
[2021-03-22 10:54] LABS: Basophils Percent Auto 0.3 % (0-2); Eosinophils Absolute Auto 0.2 X10*3/uL (0.0-0.4); Eosinophils Percent Auto 1.7 % (0-4); Imm Gran Abs Auto 0.02 X10*3/uL (0.00-0.03); Imm Gran Pct Auto 0.2 % (0.0-0.4); Lymphocytes Absolute Auto 1.8 X10*3/uL (1.2-4.9); Lymphocytes Percent Auto 19.8 % (20-40); Mean Corpuscular HGB Conc 33.3 g/dl (31.0-35.0); Mean Corpuscular Hemoglobin 24.8 pg (27.0-33.0); Mean Corpuscular Volume 74.4 fL (80.0-98.0); Mean Platelet Volume 9.8 fL (9.4-12.3); Monocytes Absolute Auto 0.5 X10*3/uL (0.1-1.2); Monocytes Percent Auto 5.3 % (2-11); Neutrophils Absolute Auto 6.7 x10*3/uL (2.0-8.3); Neutrophils Percent Auto 72.7 % (45-73); Platelet Count 448 X10*3/uL (160-400); Red Blood Count 4.84 X10*6/uL (4.20-5.50); Red Cell Distribution Width 15.5 % (11.0-16.0); White Blood Count 9.3 X10*3/uL (4.8-10.8)
[2021-03-22 11:01] LABS: Estimated Average Glucose 97 mg/dL
[2021-03-22 11:14] LABS: Alanine Aminotransferase 11 U/L (0-31); Alkaline Phosphatase 90 U/L (39-117); Anion Gap 11 (12-20); Aspartate Amino Transferase 13 U/L (5-31); Bilirubin Total 0.5 mg/dL (0.0-1.0); Blood Urea Nitrogen 7 mg/dL (9-16); Calcium 9.7 mg/dL (8.4-10.2); Carbon Dioxide 24 mmol/L (22-29); Chloride 108 mmol/L (96-108); Cholesterol 156 mg/dL; Estimated Glomerular Filt Rate > 60; Glucose Random 85 mg/dL (60-115); HDL Cholesterol 47 mg/dL; Iron 30 mcg/dL (30-160); LDL Cholesterol Calculated 98 mg/dl; Percent Iron Saturation 7 % (15-50); Sodium 139 mmol/L (135-145); Total Iron Binding Capacity 447 mcg/dL (228-428); Total Protein 7.6 g/dL (6.5-8.0); Triglycerides 58 mg/dL; Unsaturated Iron Binding 417 ug/dL
[2021-03-22 11:35] LABS: Ferritin 15 ng/mL (10-122); Insulin 12 uU/mL (2-29); TSH reflex Free T4 0.95 uIU/mL (0.32-4.0); Vitamin D 25-OH Total 10.8 ng/mL (>30)
[2021-03-22 11:52] LABS: Folate 13.7 ng/mL (> or = 4.0); Vitamin B12 238 pg/mL (200-900)
[2021-03-26 12:36] LABS: Calcium (PTHI) 9.5 mg/dL (8.6-10.2); PTHI 62 pg/mL (14-64)
[2021-03-26 23:26] LABS: Zinc 75 mcg/dL (60-130)
[2021-03-28 12:05] LABS: Vitamin B1 7 nmol/L (8-30)
[2021-03-29 17:45] LABS: Vitamin A 25 mcg/dL (38-98)
== END 2021-03-22 10:11 | disposition home or self-care (01) ==
LOC: HO.XRAY 10:10
PROVIDERS: PCP Internal Medicine; Visit Provider Surgery
DX: E66.01 Morbid (severe) obesity due to excess calories (principal)
CPT/HCPCS: 36415; 80053; 80061; 82306; 82607; 82728; 82746; 83036; 83525; 83540; 83970; 84425; 84443; 84590; 84630; 85025; 86140

== ENCOUNTER → 2021-04-12 08:14 | Outpatient (BNVA) | payer OTHER, SELFPAY | PROVIDERS: PCP Internal Medicine; Visit Provider Surgery ==

== ENCOUNTER → 2021-04-19 08:06 | Outpatient (BNVA) | payer OTHER, SELFPAY | PROVIDERS: PCP Internal Medicine; Visit Provider Dietitian, Registered ==

== ENCOUNTER 2021-04-24 09:15 | Outpatient (REF) | payer OTHER, SELFPAY ==
[2021-04-25 14:58] LABS: H Pylori Breath Test Positive (Negative)
== END 2021-04-24 09:16 | disposition home or self-care (01) ==
LOC: HO.LNP 09:15
PROVIDERS: Surgery; PCP Internal Medicine; Referring Provider Internal Medicine; Visit Provider Physician Assistant
DX: R40.0 Somnolence (principal); E66.01 Morbid (severe) obesity due to excess calories; Z11.0 Encounter for screening for intestinal infectious diseases
CPT/HCPCS: 83013; 99211

== ENCOUNTER 2022-03-07 13:35 | Outpatient (REF) | payer OTHER, SELFPAY ==
[2022-03-08 08:06] LABS: Syphilis Screen Nonreactive (Nonreactive)
[2022-03-08 08:31] LABS: HBsAGNum1 0.33 S/CO (0.00-0.99); Hepatitis B Surface Antigen Negative (Negative); ~HepC Num1 0.13 S/CO (0.00-0.79); ~Hepatitis C Antibody Nonreactive (Nonreactive)
[2022-03-08 09:03] LABS: BV Int Neg Control Negative (Negative); BV Int Pos Control Positive (Positive)
[2022-03-08 09:04] LABS: CT PCR NOT DETECTED (Not Detect.); NG PCR NOT DETECTED (Not Detect.)
[2022-03-08 09:16] LABS: HIV AB/AG Nonreactive (Nonreactive); HIV Num 1 0.07 S/CO (0.00-0.99)
[2022-03-09 22:04] LABS: HPV mRNA E6/E7 rflx Not Detected (Not Detected)
== END 2022-03-07 13:36 | disposition home or self-care (01) ==
LOC: HO.LAB 13:35
PROVIDERS: PCP Internal Medicine; Visit Provider Advanced Practice Midwife
DX: Z01.419 Encounter for gynecological examination (general) (routine) without abnormal findings (principal); Z11.51 Encounter for screening for human papillomavirus (HPV); Z11.3 Encounter for screening for infections with a predominantly sexual mode of transmission; Z11.4 Encounter for screening for human immunodeficiency virus [HIV]; E66.01 Morbid (severe) obesity due to excess calories
CPT/HCPCS: 86780; 86803; 87340; 87389; 87480; 87491; 87510; 87591; 87624; 87660; 88142

== ENCOUNTER → 2023-04-09 10:20 | Outpatient (BNVA) | payer OTHER, SELFPAY | PROVIDERS: PCP Internal Medicine; Visit Provider Physician Assistant ==

== ENCOUNTER 2023-04-24 10:47 | Outpatient (AMB) | payer OTHER, SELFPAY ==
--- NOTE | 2023-04-24 10:49 | A.OFFVIS_ITS ---
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 She has gained a little bit await but she is finally at a point where she has made up her mind that she wants to deal with the weight issue and she is embarking on the weight management program for weight loss. She has an appointment next week with physician there and feels ready to take it on and has exploring what kind of exercise she is going to be doing and has been told to focus more on cardio. She has a whole lot lab work to do for that and she is also interested in getting STI testing while she is added. 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 She acknowledges having had discussions about the role of obesity in her irregular bleeding pattern. We readdressed the issue today and I congratulated her on her decision to move forward for the better health of herself and her children. She was not due for Pap smear testing was done and offered for STI testing and we also discussed the irregular menses. Discussed checking with an ultrasound to be sure that there was not thing untoward to be evaluated however since her issue at this point is not intermenstrual bleeding or another irregular pattern it would be possible to simply consider a Mirena IU S with menses if the ultrasound is within normal limits. She would be interested in that as it would make life easier for her so we will plan on the pelvic ultrasound a follow-up visit after that followed by a Mirena IUD insertion with her menses if everything is normal. [facility] Medical History Morbid obesity Acute cholecystitis Gallstones Gallstone Surgical History Status post cholecystectomy History of laparoscopic cholecystectomy History of 3 sections History of tubal ligation Family History Father HTN (hypertension) Diabetes Mother No problems noted. Maternal Grandfather Prostate cancer Sister No problems noted. Sister No problems noted. Sister No problems noted. Sister No problems noted. Sister No problems noted. Son No problems noted. Daughter No problems noted. Daughter No problems noted. Social History Household Members: Children Housing: Apartment Do you presently have visiting nurse or other home services: No Alcohol intake: current Alcohol intake frequency: holidays/special occasions only Patient Tobacco Use Status: Never used Tobacco e-Cigarette/Vaping Use: Never Used Second Hand Smoke Exposure: No service: No Current occupational status: student Cognitive needs: No Hearing needs: No Vision needs: No Female Reproductive History Menstrual Age of Menarche: 11 Duration of menses: 6-7 days Date of last menstrual period: 03/09/23 control method: permanent sterilization Total pregnancies: 3 Full term: 3 Date of last pap smear: 03/08/22 (negative) History of abnormal pap smear: No Physical Exam Vital Signs: Last Vital Signs BP 110/62 04/24/23 10:57 BMI result Body Mass Index 44.9 Const General: healthy appearing, comfortable, no acute distress, well developed and alert Nutritional Appearance: average body habitus Orientation/consciousness: patient oriented x3 Limitations: no limitations HEENT Head: Yes normocephalic Neck Neck: Yes normal visual inspection Chest Chest palpation & inspection: normal inspection of the chest Breast/axilla inspection: normal inspection of the breasts and normal inspection of the axillae Breast/axilla palpation: normal palpation of the breasts and normal palpation of the axillae Resp Effort & Inspection: normal respiratory effort GI Inspection: Yes normal to inspection, No Abdominal wall edema and No distended Palpation (GI): Soft to palpation and nontender Other: Vagina pink and moist cervix is pink nulliparous smooth cervix is very tightly closed. Uterus midposition mobile nontender adnexa nontender good tone with Kegel. General: Yes bladder normal to palpation External Female Exam: normal external appearance and normal appearance of the urethra Speculum Exam - Vagina: normal appearance of the vagina, normal palpation and normal vaginal discharge Speculum Exam - Cervix: normal appearance of the cervix, normal palpation and nontender Bimanual exam- vagina & uterus: normal bimanual exam, normal palpation, uterine size normal, bladder normal to palpation, consistency normal, normal palpation, uterine mobility normal, uterine shape normal, No Cervical tenderness present, non-tender and no cervical motion tenderness Bimanual Exam- Adnexa, other: normal adnexae, no masses, normal and No adnexal tenderness Neuro General: patient oriented x3 Assessment & Plan Assessment & Plan (1) Screen for sexually transmitted diseases: Code(s): Z11.3 - Encounter for screening for infections with a predominantly sexual mode of transmission (2) History of irregular menstrual bleeding: Comment: Reports occasional missed menses and then they are heavier when they come. 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 She has gained a little bit await but she is finally at a point where she has made up her mind that she wants to deal with the weight issue and she is embarking on the weight management program for weight loss. She has an appointment next week with physician there and feels ready to take it on and has exploring what kind of exercise she is going to be doing and has been told to focus more on cardio. She has a whole lot lab work to do for that and she is also interested in getting STI testing while she is added. 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 She acknowledges having had discussions about the role of obesity in her irregular bleeding pattern. We readdressed the issue today and I congratulated her on her decision to move forward for the better health of herself and her children. She was not due for Pap smear testing was done and offered for STI testing and we also discussed the irregular menses. Discussed checking with an ultrasound to be sure that there was not thing untoward to be evaluated however since her issue at this point is not intermenstrual bleeding or another irregular pattern it would be possible to simply consider a Mirena IU S with menses if the ultrasound is within normal limits. She would be interested in that as it would make life easier for her so we will plan on the pelvic ultrasound a follow-up visit after that followed by a Mirena IUD insertion with her menses if everything is normal. Orders: Orders Hepatitis C Antibody Today E66.01 - Morbid (severe) obesity due to excess calories, Z01.419 - Encounter for gynecological examination (general) (routine) without abnormal findings, Z11.3 - Encounter for screening for infections with a predominantly sexual mode of transmission, Z12.4 - Encounter for screening for malignant neoplasm of cervix, Z87.42 - Personal history of other diseases of the female genital tract, Z98.51 - Tubal ligation status Syphilis Screen Today E66.01 - Morbid (severe) obesity due to excess calories, Z01.419 - Encounter for gynecological examination (general) (routine) without abnormal findings, Z11.3 - Encounter for screening for infections with a predominantly sexual mode of transmission, Z12.4 - Encounter for screening for malignant neoplasm of cervix, Z87.42 - Personal history of other diseases of the female genital tract, Z98.51 - Tubal ligation status US pelvic and transvaginal Today E66.01 - Morbid (severe) obesity due to excess calories, Z01.419 - Encounter for gynecological examination (general) (routine) without abnormal findings, Z11.3 - Encounter for screening for infections with a predominantly sexual mode of transmission, Z12.4 - Encounter for screening for malignant neoplasm of cervix, Z87.42 - Personal history of other diseases of the female genital tract, Z98.51 - Tubal ligation status Hepatitis B Surface Antigen Today E66.01 - Morbid (severe) obesity due to excess calories, Z01.419 - Encounter for gynecological examination (general) (routine) without abnormal findings, Z11.3 - Encounter for screening for infections with a predominantly sexual mode of transmission, Z12.4 - Encounter for screening for malignant neoplasm of cervix, Z87.42 - Personal history of other diseases of the female genital tract, Z98.51 - Tubal ligation status HIV Ab/Ag Today E66.01 - Morbid (severe) obesity due to excess calories, Z01.419 - Encounter for gynecological examination (general) (routine) without abnormal findings, Z11.3 - Encounter for screening for infections with a predominantly sexual mode of transmission, Z12.4 - Encounter for screening for malignant neoplasm of cervix, Z87.42 - Personal history of other diseases of the female genital tract, Z98.51 - Tubal ligation status Coding Level of Care Code Est Pt Prev Care 18-39y(10198) Diagnoses Screen for sexually transmitted diseases Z11.3 History of irregular menstrual bleeding Z87.42 History of tubal ligation Z98.51 Cervical cancer screening Z12.4 Well woman exam with routine gynecological exam Z01.419 Morbid obesity E66.01
[2023-04-24 10:57] VITALS: BP 110/62; BMI 44.9
== END 2023-04-24 11:36 | disposition home or self-care (01) ==
LOC: HO.HWSM 10:47
PROVIDERS: PCP Internal Medicine; Visit Provider Advanced Practice Midwife
DX: Z01.419 Encounter for gynecological examination (general) (routine) without abnormal findings (principal); Z11.3 Encounter for screening for infections with a predominantly sexual mode of transmission; Z87.42 Personal history of other diseases of the female genital tract; Z98.51 Tubal ligation status; Z12.4 Encounter for screening for malignant neoplasm of cervix; E66.01 Morbid (severe) obesity due to excess calories
CPT/HCPCS: 99395

== ENCOUNTER 2023-04-24 10:47 | Outpatient (REF) | payer OTHER, SELFPAY ==
[2023-04-25 04:47] LABS: CT PCR NOT DETECTED (Not Detect.); NG PCR NOT DETECTED (Not Detect.)
[2023-04-25 09:29] LABS: BV Int Neg Control Negative (Negative); BV Int Pos Control Positive (Positive)
== END 2023-04-24 10:48 | disposition home or self-care (01) ==
LOC: HO.LAB 10:47
PROVIDERS: PCP Internal Medicine; Visit Provider Advanced Practice Midwife
DX: Z01.419 Encounter for gynecological examination (general) (routine) without abnormal findings (principal); E66.01 Morbid (severe) obesity due to excess calories; Z68.41 Body mass index [BMI] 40.0-44.9, adult; Z11.3 Encounter for screening for infections with a predominantly sexual mode of transmission; Z20.2 Contact with and (suspected) exposure to infections with a predominantly sexual mode of transmission; Z87.42 Personal history of other diseases of the female genital tract; Z90.49 Acquired absence of other specified parts of digestive tract; Z98.51 Tubal ligation status
CPT/HCPCS: 0353U; 87480; 87510; 87660; 99395

== ENCOUNTER → 2023-04-28 08:03 | Outpatient (BNVA) | payer OTHER, SELFPAY | PROVIDERS: PCP Internal Medicine; Visit Provider Surgery ==

== ENCOUNTER 2023-05-28 14:07 | Outpatient (AMB) | payer OTHER, SELFPAY ==
--- NOTE | 2023-05-28 14:11 | A.OFFVIS_ITS ---
Intake Vital Signs 05/28/23 14:16 Height 5 ft Weight 230 lb BMI 44.9 BP 108/68 Intake Visit Reasons: ? 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 infection HPI Details Patient is here because she thinks she has a yeast infection she was very itchy and irritated for about a week and she even tried to have sex and it was so uncomfortable she had to stop. She is with her and they are living currently with their parents while awaiting a new apartment she recently was placed on amoxicillin for tooth infection and she may need another course after that for the other side. She has been on the antibiotics for between 4-5 days so the vaginal itching preceded the exposure to the amoxicillin. [facility] Medical History Morbid obesity Acute cholecystitis Gallstones Gallstone Surgical History Status post cholecystectomy History of laparoscopic cholecystectomy History of 3 sections History of tubal ligation Family History Father HTN (hypertension) Diabetes Mother No problems noted. Maternal Grandfather Prostate cancer Sister No problems noted. Sister No problems noted. Sister No problems noted. Sister No problems noted. Sister No problems noted. Son No problems noted. Daughter No problems noted. Daughter No problems noted. Social History Household Members: Children Housing: Apartment Do you presently have visiting nurse or other home services: No Alcohol intake: current Alcohol intake frequency: holidays/special occasions only Patient Tobacco Use Status: Never used Tobacco e-Cigarette/Vaping Use: Never Used Second Hand Smoke Exposure: No Patient : No service: No Current occupational status: student Cognitive needs: No Hearing needs: No Vision needs: No Female Reproductive History Menstrual Age of Menarche: 11 Duration of menses: 3-5 days Date of last menstrual period: 05/06/23 control method: other (tubal ligation) Total pregnancies: 3 Full term: 3 Number of Living Children: 3 Date of last pap smear: 03/08/22 (negative) Physical Exam Vital Signs: Last Vital Signs BP 108/68 05/28/23 14:16 BMI result Body Mass Index 44.9 External Female Exam: normal external appearance (Slightly dry and also slightly reddened with whitish discharge consistent w), normal appearance of the urethra, erythema and external swelling Speculum Exam - Vagina: normal appearance of the vagina and normal vaginal discharge (c/w yeast) Speculum Exam - Cervix: normal appearance of the cervix Assessment & Plan Assessment & Plan (1) Yeast infection involving the vagina and surrounding area: Code(s): B37.31 - Acute candidiasis of vulva and vagina Plan ---I reviewed her symptoms we reviewed what she may have done alleviate symptoms. I reviewed contributing factors to yeast infection including clothing that may be a little tight or does not permit air to pass to the vulva well, including non cotton underwear, nylon and polyester type workout clothes and yoga pants, use of panty liners pads for periods etc. My recommendations include use of the medication that we decided upon, allowing air to her vulva as much as possible including wearing cotton underwear and possibly no underwear at night when possible. Any other contributing factors were explored. I encouraged her not to scratch. I reviewed what to do when she feels symptoms first starting, (re-double her efforts at allowing air to the area.) In her case the yeast followed of course of treatment for bacterial vaginosis which is extremely common as well. Since she is going to be on another treatment with antibiotics I am also sending refills on Diflucan for her she may need them in the future.. Orders: Orders Bacterial Vaginosis Panel Today B37.31 - Acute candidiasis of vulva and vagina CT NG by PCR Today B37.31 - Acute candidiasis of vulva and vagina Medications: New miconazole nitrate 2% (Miconazole-7) 1 appful vaginal BEDTIME 7 days 45 grams 2RF miconazole nitrate 2% (Miconazole-7) 1 appful vaginal BEDTIME 7 days 45 grams 3RF fluconazole may repeat second dose 72 hrs after first dose if symptoms persist 150 mg PO Q3D 2 doses 2 tabs 0RF fluconazole may repeat second dose 72 hrs after first dose if symptoms persist 150 mg PO Q3D 2 doses 2 tabs 2RF Coding Level of Care Code Est Pt Level 3 (71851) Diagnoses Yeast infection involving the vagina and surrounding area B37.31
[2023-05-28 14:16] VITALS: BP 108/68; BMI 44.9
== END 2023-05-28 15:29 | disposition home or self-care (01) ==
LOC: HO.HWSM 14:08
PROVIDERS: PCP Internal Medicine; Visit Provider Advanced Practice Midwife
DX: B37.31 Acute candidiasis of vulva and vagina (principal)
CPT/HCPCS: 99213

== ENCOUNTER 2023-05-28 14:07 | Outpatient (REF) | payer OTHER, SELFPAY ==
[2023-05-29 06:07] LABS: CT PCR NOT DETECTED (Not Detect.); NG PCR NOT DETECTED (Not Detect.)
[2023-05-29 15:44] LABS: BV Int Neg Control Negative (Negative); BV Int Pos Control Positive (Positive)
== END 2023-05-28 14:08 | disposition home or self-care (01) ==
LOC: HO.LNP 14:07
PROVIDERS: PCP Internal Medicine; Visit Provider Advanced Practice Midwife
DX: B37.31 Acute candidiasis of vulva and vagina (principal); Z79.2 Long term (current) use of antibiotics
CPT/HCPCS: 0353U; 87480; 87510; 87660; 99212

== ENCOUNTER 2023-07-30 14:34 | Emergency (ER) | payer OTHER, SELFPAY ==
[2023-07-30] VITALS (7 sets, daily range): BP systolic 91–154; BP diastolic 53–91; PULSE 76–110; RESP 13–18; TEMP 36.1–37.1; O2SAT 95–100; BMI 43.0
--- NOTE | ~2023-07-30 | CT_ITS ---
EXAMINATION: CT abdomen pelvis w IV con CLINICAL INFORMATION: Reason for Exam abdominal pain COMPARISON: No prior CT available for comparison. TECHNIQUE: Multidetector volumetric imaging was performed from the superior aspect of the liver through the pubic symphysis 85 mL Omnipaque 350 injected Sagittal and coronal reformatted images were obtained on the technologist's workstation. This CT examination was performed using dose optimization techniques as appropriate, variously including the following: *Automated exposure control *Adjustment of mA and/or kV according to patient size (this includes techniques or standardized protocols for targeted exams where dose is matched to indication/reason for exam; i.e. extremities or head) *Use of iterative reconstruction technique DLP: 929 mGy-cm FINDINGS: LOWER THORAX: Included lung bases are clear. HEPATOBILIARY: No focal hepatic lesions. No biliary ductal dilatation. GALLBLADDER: Gallbladder has been removed. SPLEEN: Spleen is normal in size. PANCREAS: No focal mass or ductal dilatation. STOMACH AND GASTROINTESTINAL TRACT: Stomach is grossly unremarkable. There are mild mucosal thickening and borderline dilatation of multiple small bowel loops in the left upper quadrant, this is nonspecific CT finding and can be seen in patient with infection or inflammatory ileitis. IBD among others. No fat stranding or perforation. No evidence of obstruction or significant dilatation. The appendix not visualized. ADRENALS: No adrenal nodules. KIDNEYS/URETERS: No hydronephrosis, stones or solid mass lesions. There is a cyst in the left kidney 1.4 cm Bosniak class I benign, no follow-up imaging recommended. No kidney stone or hydronephrosis. URINARY BLADDER: Partially decompressed. PELVIC VISCERA: Uterus and adnexa are grossly unremarkable. PERITONEUM: No free air or fluid. LYMPH NODES: No lymphadenopathy. VASCULAR:Abdominal aorta normal in size, no aneurysm found. BONES, ABDOMINAL WALL AND SOFT TISSUES: Age-appropriate changes of the spine and skeletal system, no destructive osteolytic or osteosclerotic bone lesion found CT/CT abdomen pelvis w IV con IMPRESSION: 1. There are MILD mucosal thickening and borderline dilatation of multiple small bowel loops in the left upper quadrant, without clear transition zone, this is nonspecific CT finding and can be seen in patient with infection or inflammatory ileitis. IBD among others. No evidence of obstruction or perforation. 2. Status post cholecystectomy.
[2023-07-30] MEDS: Ondansetron ODT 4 MG TAB.RAPDIS TRANSLINGU (15:28)
[2023-07-30 15:48] LABS: MANUAL DIFF FLAG NO
[2023-07-30 15:50] LABS: Basophils Absolute Auto 0.1 X10*3/uL (0.0-0.2); Basophils Percent Auto 0.3 % (0-2); Eosinophils Absolute Auto 0.2 X10*3/uL (0.0-0.4); Eosinophils Percent Auto 0.8 % (0-4); Hematocrit 43.7 % (37.0-47.0); Hemoglobin 13.9 g/dl (12.0-16.0); Imm Gran Abs Auto 0.09 X10*3/uL (0.00-0.03); Imm Gran Pct Auto 0.4 % (0.0-0.4); Lymphocytes Absolute Auto 0.8 X10*3/uL (1.2-4.9); Lymphocytes Percent Auto 3.8 % (20-40); Mean Corpuscular HGB Conc 31.8 g/dl (31.0-35.0); Mean Corpuscular Hemoglobin 24.2 pg (27.0-33.0); Mean Corpuscular Volume 76.1 fL (80.0-98.0); Mean Platelet Volume 9.5 fL (9.4-12.3); Monocytes Absolute Auto 1.2 X10*3/uL (0.1-1.2); Monocytes Percent Auto 5.8 % (2-11); Neutrophils Absolute Auto 19.1 x10*3/uL (2.0-8.3); Neutrophils Percent Auto 88.9 % (45-73); Platelet Count 529 X10*3/uL (160-400); Red Blood Count 5.74 X10*6/uL (4.20-5.50); Red Cell Distribution Width 14.8 % (11.0-16.0); White Blood Count 21.5 X10*3/uL (4.8-10.8)
[2023-07-30 16:09] LABS: Alanine Aminotransferase 20 U/L (0-31); Albumin Level 4.3 g/dL (3.5-5.0); Alkaline Phosphatase 107 U/L (39-117); Anion Gap 13 (12-20); Aspartate Amino Transferase 14 U/L (5-31); Bilirubin Total 0.3 mg/dL (0.0-1.0); Blood Urea Nitrogen 9 mg/dL (9-16); Calcium 10.1 mg/dL (8.4-10.2); Carbon Dioxide 27 mmol/L (22-29); Chloride 102 mmol/L (96-108); Creatinine Clr Calc Pharmacy 115.8; Estimated Glomerular Filt Rate > 60; Glucose Random 124 mg/dL (60-115); Lipase 10 U/L (8-78); Potassium 3.2 mmol/L (3.3-5.1); Sodium 139 mmol/L (135-145); Total Protein 8.7 g/dL (6.5-8.0)
[2023-07-30 16:41] LABS: Influenza A PCR NEGATIVE (Negative); Influenza B PCR NEGATIVE (Negative); Resp Syncy Virus RNA Qual PCR NEGATIVE (Negative); SARS COV2 PCR INHOUSE NEGATIVE (Negative)
--- NOTE | 2023-07-30 19:08 | ED.ABDPAIN ---
HPI - Abdominal Pain General Chief Complaint: Abdominal Pain Stated Complaint: ABD PAIN, N/V/D PER EMS Time Seen by Provider: 07/30/23 18:39 Source: patient and EMS Mode of arrival: EMS Limitations: no limitations History of Present Illness HPI narrative: Patient is a 32-year-old female who presents emergency department for evaluation bilious vomiting and watery diarrhea and diffuse abdominal pain with symptom onset at 13:00 today, endorses associated chills. She does admit that approximately 09:00 o'clock this morning she consumed some chicken that was on the stove, she later found out from her mother that the chicken had been sitting out on the stove for approximately 3 days. She denies any known sick contacts, no other persons in the home consumed this chicken. She denies fevers, URI symptoms, chest pain, shortness of breath, urogenital symptoms, possibility of , hematochezia, melena. Related Data Home Medications ?Medication ?Instructions ?Recorded ?Confirmed amoxicillin 250 mg capsule 250 mg PO TID 05/28/23 05/28/23 ibuprofen 800 mg tablet 800 mg PO TID 05/28/23 05/28/23 Previous Rx's ?Medication ?Instructions ?Recorded fluconazole 150 mg tablet 150 mg PO Q3D 2 doses #2 tabs 05/28/23 fluconazole 150 mg tablet 150 mg PO Q3D 2 doses #2 tabs 05/28/23 miconazole nitrate 2 % vaginal 1 appful vaginal BEDTIME 7 days 05/28/23 cream (Miconazole-7) #45 grams miconazole nitrate 2 % vaginal 1 appful vaginal BEDTIME 7 days 05/28/23 cream (Miconazole-7) #45 grams metronidazole 500 mg tablet 500 mg PO BID 7 days #14 tabs 05/29/23 ondansetron 4 mg disintegrating 4 mg PO Q8H PRN nausea and 07/30/23 tablet vomiting #10 tabs Allergies Allergy/AdvReac Type Severity Reaction Status Date / Time No Known Allergies Allergy Verified 07/30/23 15:24 Review of Systems Review of Systems Yes all other systems are reviewed and are negative PMFSH Past Medical History Attestation statement: The following information was validated with the patient. Source: old records reviewed Medical History Morbid obesity Acute cholecystitis Gallstones Gallstone Surgical History Status post cholecystectomy History of laparoscopic cholecystectomy History of 3 sections History of tubal ligation Family History Family History Father HTN (hypertension) Diabetes Mother No problems noted. Maternal Grandfather Prostate cancer Sister No problems noted. Sister No problems noted. Sister No problems noted. Sister No problems noted. Sister No problems noted. Son No problems noted. Daughter No problems noted. Daughter No problems noted. Social History Social History Household Members: Children Housing: Apartment Do you presently have visiting nurse or other home services: No Alcohol intake: current Alcohol intake frequency: holidays/special occasions only Patient Tobacco Use Status: Never used Tobacco Smoked in Last 30 Days: No e-Cigarette/Vaping Use: Never Used Second Hand Smoke Exposure: No Use of substances other than those prescribed or required for medical reasons: Yes Substance Use Type: Marijuana Advance Directives: No Advance Directives Information Provided: No Do you have a plan to hurt others: No Plan service: No Current occupational status: student Cognitive needs: No Hearing needs: No Vision needs: No Physical Exam ED Vital Signs: Vital Signs - 24 hr 07/30/23 15:22 07/30/23 18:47 07/30/23 20:22 Temperature 97 F 97.9 F 98.8 F Pulse Rate 110 H 82 78 Respiratory Rate 18 16 13 Blood Pressure 91/53 L 154/91 H 126/69 Pulse Oximetry 97 95 98 Oxygen Delivery Method Room Air Room Air Room Air 07/30/23 20:45 07/30/23 21:25 07/30/23 21:49 Temperature 97.6 F 97.9 F 97.9 F Pulse Rate 76 80 80 Respiratory Rate 15 16 16 Blood Pressure 108/75 111/59 L 111/59 L Pulse Oximetry 100 100 100 Oxygen Delivery Method Room Air Room Air Room Air BMI result Body Mass Index 43.0 Appearance: Alert.?Oriented to person, place and time. No acute distress.?Normal affect. Eyes: Pupils equal, round and reactive to light.? ENT: Pharynx normal.?? Neck: Normal inspection.? Neck supple.?? CVS: Heart sounds normal. Normal heart rate and rhythm.? Pulses normal.?? Respiratory: No respiratory distress.? Lung sounds clear to auscultation bilaterally?? Abdomen: Soft and non-tender. Normoactive bowel sounds. Skin: Skin warm and dry.? Normal skin color.?? Extremities: No lower extremity edema.? Neuro: Moves all extremities spontaneously. Sensation intact bilaterally. CN II-XII intact. No focal neuro deficits. Ambulates with normal steady gait. Course Reevaluation(s) Reevaluation #1: No lactic acidosis. CT of the abdomen and pelvis revealing mild mucosal thickening borderline dilation of the small bowel in left upper quadrant, no transition zone, concern for infection versus inflammatory ileitis/IBD, no history of IBD, and previously asymptomatic prior to consumption of likely spoiled food. Symptoms at this time most consistent with gastroenteritis, toxin mediated illness, self-limiting condition. She is tolerating oral intake at this time, I feel that she is stable for discharge home with conservative treatment and strict return precautions. Time: 21:23 Medical Decision Making Medical Decision Making MDM Narrative: Patient is a 32-year-old female presenting to the emergency department for evaluation of abdominal pain with nausea vomiting diarrhea with onset just prior to arrival this afternoon concern for food-borne illness/gastroenteritis versus acute intra-abdominal pathology, at 18:50 - I assumed care of patient at this time. I reviewed serum labs that were obtained from initial triage; had notable leukocytosis of 21.5 and left shift with thrombocytosis (which has been seen previously). Mild hypokalemia of 3.2, for which she will receive 10 mEq IV replacement, otherwise no electrolyte derangement, no CARMEN, transaminases within normal range, lipase within normal range. Viral panel is negative. Decision made to add on hCG and obtain urinalysis for further evaluation. Blood cultures and lactic acid were ordered. Currently she is afebrile without tachycardia tachypnea or hypotension. Sepsis alert to to be called. I do note that on arrival to department blood pressure was soft with systolic 91, and mild tachycardia chest since resolved. Would defer sepsis fluid bolus pending lactic acid or further evidence of organ dysfunction to suggest severe sepsis. Patient will receive 1 L normal saline IV fluid, Zofran IV, and is pending CT of the abdomen and pelvis for further evaluation. Differential Diagnosis Differential Diagnoses: The differential diagnosis associated with the presentation includes (Diverticulitis, colitis, gastroenteritis, viral syndrome, urinary tract infection, pyelonephritis) Admission/Observation Consideration of admission/observation: Escalation of care including admission/observation considered (See narrative above and course narrative for further detail) Lab Data MDM Lab Attestation statement: I reviewed the patient's lab results. (See narrative above) 07/30/23 15:44 07/30/23 15:44 Labs: Lab Results 07/30/23 07/30/23 Range/Units 15:44 19:16 WBC 21.5 H (4.8-10.8) X10*3/uL RBC 5.74 H (4.20-5.50) X10*6/uL Hgb 13.9 (12.0-16.0) g/dl Hct 43.7 D (37.0-47.0) % MCV 76.1 L (80.0-98.0) fL MCH 24.2 L (27.0-33.0) pg MCHC 31.8 (31.0-35.0) g/dl RDW 14.8 (11.0-16.0) % Plt Count 529 H (160-400) X10*3/uL MPV 9.5 (9.4-12.3) fL Immature Gran % (Auto) 0.4 (0.0-0.4) % Neut % (Auto) 88.9 H (45-73) % Lymph % (Auto) 3.8 L (20-40) % [place] % (Auto) 5.8 (2-11) % Eos % (Auto) 0.8 (0-4) % Baso % (Auto) 0.3 (0-2) % Lymph # (Auto) 0.8 L (1.2-4.9) X10*3/uL [place] # (Auto) 1.2 (0.1-1.2) X10*3/uL Eos # (Auto) 0.2 (0.0-0.4) X10*3/uL Baso # (Auto) 0.1 (0.0-0.2) X10*3/uL Abs Immat Gran (auto) 0.09 H (0.00-0.03) X10*3/uL Absolute Neuts (auto) 19.1 H (2.0-8.3) x10*3/uL Absolute Nucleated RBC 0.000 (0.0-0.012) X10*3/uL Nucleated RBC % (auto) 0.0 (0.0-0.2) /100WBC Sodium 139 (135-145) mmol/L Potassium 3.2 L (3.3-5.1) mmol/L Chloride 102 (96-108) mmol/L Carbon Dioxide 27 (22-29) mmol/L Anion Gap 13 (12-20) BUN 9 (9-16) mg/dL Creatinine 0.74 (0.5-1.4) mg/dL Estim Creat Clear Calc 115.8 Estimated GFR > 60 Random Glucose 124 H (60-115) mg/dL Lactic Acid 1.3 (0.5-2.0) mmol/L Calcium 10.1 (8.4-10.2) mg/dL Total Bilirubin 0.3 (0.0-1.0) mg/dL AST 14 (5-31) U/L ALT 20 (0-31) U/L Alkaline Phosphatase 107 (39-117) U/L Total Protein 8.7 H (6.5-8.0) g/dL Albumin 4.3 (3.5-5.0) g/dL Lipase 10 (8-78) U/L Beta HCG, Quant < 2 mIU/mL Influenza Type A (PCR) NEGATIVE (Negative) Influenza Type B (PCR) NEGATIVE (Negative) RSV RNA Qual (PCR) NEGATIVE (Negative) SARS-CoV-2 RNA (RT-PCR) NEGATIVE (Negative) Radiology Impression Discussion of test interpretation with radiology: I have reviewed the radiologist's reading. Medications Administered Discontinued Medications Generic Name Dose Route Start Last Admin Trade Name Freq PRN Reason Stop Dose Admin Sodium Chloride 1,000 mls @ 999 mls/hr 07/30/23 19:15 07/30/23 20:32 Ns IV 07/30/23 20:15 Infused .Q1H1M FABY Infusion Potassium Chloride 10 meq in 100 mls @ 100 mls/hr 07/30/23 19:16 07/30/23 20:46 Potassium Chloride/H20 IV 07/30/23 20:15 Infused ONCE ONE Infusion Piperacillin Sod/Tazobactam 50 mls @ 100 mls/hr 07/30/23 20:29 07/30/23 21:30 Sod 3.375 gm/ Sodium Chloride IV 07/30/23 20:58 Infused ONCE ONE Infusion Iohexol 85 ml 07/30/23 19:47 07/30/23 19:47 Iohexol 350 Mg/Ml 100 Ml Infus..Btl IV 07/30/23 19:48 85 ml ONCE ONE Administration Ondansetron HCl 4 mg 07/30/23 15:25 07/30/23 15:28 Ondansetron Odt 4 Mg Tab.Rapdis TRANSLINGU 07/30/23 15:26 4 mg ONCE ONE Administration Ondansetron HCl 4 mg 07/30/23 19:02 07/30/23 19:26 Ondansetron Hcl 4 Mg/2 Ml Vial IVPUSH 07/30/23 19:03 4 mg ONCE ONE Administration Potassium Chloride 40 meq 07/30/23 19:17 07/30/23 21:17 Potassium Chloride Er 20 Meq Tab.Er.Prt PO 07/30/23 19:18 40 meq ONCE ONE Administration Discharge Plan Discharge Clinical Impression: Gastroenteritis Patient Disposition: Home, Self-Care Additional Instructions: As discussed, the symptoms you are experiencing most likely due to the food that you ate that set out for a few days. This often causes food poisoning. Your symptoms may last for a few days. Please be sure to get plenty of rest, stay well hydrated and drink plenty of fluids throughout the day, I have sent a prescription for antinausea medication to your pharmacy, you may take this as needed every 8 hours. Consume clear liquids for the next day, then you may transition to bland foods. Follow-up with your primary care provider. Return back to emergency department with any new or worsening symptoms or concerns. Introduce a bland diet including crackers, bananas, rice, soup, toast, and boiled vegetables. This may progress to plain baked or boiled chicken or turkey. Avoid dairy products or foods high in fat or grease. Prescriptions: New ondansetron 4 mg tablet,disintegrating 4 mg PO Q8H PRN (Reason: nausea and vomiting) Qty: 10 0RF No Action metronidazole 500 mg tablet 500 mg PO BID 7 Days Qty: 14 0RF Rx Instructions: Take with food, Avoid alcohol and vinegar products amoxicillin 250 mg capsule 250 mg PO TID ibuprofen 800 mg tablet 800 mg PO TID miconazole nitrate [Miconazole-7] 2 % cream 1 appful vaginal BEDTIME 7 Days Qty: 45 3RF fluconazole 150 mg tablet 150 mg PO Q3D 0 Days Qty: 2 0RF Rx Instructions: may repeat second dose 72 hrs after first dose if symptoms persist fluconazole 150 mg tablet 150 mg PO Q3D 0 Days Qty: 2 2RF Rx Instructions: may repeat second dose 72 hrs after first dose if symptoms persist miconazole nitrate [Miconazole-7] 2 % cream 1 appful vaginal BEDTIME 7 Days Qty: 45 2RF Referrals: Hugo Gamble MD [Primary Care Provider] - Stand Alone Forms: Work/School Release Interventions: ED Discharge Assessment Last Done: 07/30/23 21:49 Discharge Date/Time: 07/30/23 21:53 Print Language: Pakistani
[2023-07-30] MEDS: 0.9 % Sodium Chloride 1,000 ML 999 ML IV (19:25)
[2023-07-30] MEDS: ondansetron HCL 4 MG/2 ML VIAL IVPUSH (19:26)
[2023-07-30] MEDS: Potassium Chloride/H20 10 MEQ/100 ML PIGGYBACK 100 MEQ IV (19:26)
[2023-07-30 19:37] LABS: Lactic Acid 1.3 mmol/L (0.5-2.0)
[2023-07-30] MEDS: iohexoL 350 MG/ML 100 ML INFUS..BTL 85 ML IV (19:47)
[2023-07-30 19:50] LABS: HCG Quantitative < 2 mIU/mL
--- NOTE | 2023-07-30 20:01 | MHC.EDTECH ---
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 Resting comfortably
[2023-07-30] MEDS: Piperacillin Sodium/Tazobactam 3.375 GM in 0.9 % Sodium Chloride 50 ML IV (21:00)
[2023-07-30] MEDS: Potassium Chloride ER 20 MEQ TAB.ER.PRT 40 MEQ PO (21:17)
== END 2023-07-30 21:53 | disposition home or self-care (01) ==
PROVIDERS: Nurse Practitioner Family; Emergency Provider Emergency Medicine; PCP Internal Medicine
DX: K52.9 Noninfective gastroenteritis and colitis, unspecified (principal); R11.2 Nausea with vomiting, unspecified; E87.6 Hypokalemia; E66.9 Obesity, unspecified; Z68.41 Body mass index [BMI] 40.0-44.9, adult; Z03.818 Encounter for observation for suspected exposure to other biological agents ruled out
CPT/HCPCS: 0241U; 36415; 74177; 80053; 83605; 83690; 84702; 85025; 87040; 96361; 96365; 96375; 99284; J2405; J2543; J3480; Q9967

== ENCOUNTER 2023-09-23 08:47 | Outpatient (AMB) | payer OTHER, SELFPAY ==
--- NOTE | 2023-09-23 08:49 | A.OFFPC_ITS ---
Vital Signs 09/23/23 08:50 Height 5 ft Weight 235 lb BMI 45.9 BP 120/84 Blood Pressure Location Lt brachial Position Sitting Pulse 67 Pulse Source Pulse Oximeter Pulse Oximetry (%) 96 Oxygen Delivery Method Room Air Intake Visit Reasons: Annual Exam- NEEDS PHQ9 Open Source Developer Required: No Enamel Burner: Present Accompanied by: Spouse Allergies No Known Allergies Allergy (Verified 09/23/23 08:50) Tobacco use date assessed: 09/23/23 Dental Screening Dental Screen Date: 09/23/23 Did you have a dental visit in the last 12 months?: Yes Did you have a dental problem in the last 6 months where you did not have access to dental care?: No Was dental information given to patient?: Patient has dentist HPI Annual Exam- NEEDS PHQ9 HPI Details Healthy [facility] Medical History (Updated 09/23/23 @ 09:17 by Hugo Gamble MD) Physical exam Morbid obesity Acute cholecystitis Gallstones Gallstone Surgical History Status post cholecystectomy History of laparoscopic cholecystectomy History of 3 sections History of tubal ligation Family History Father HTN (hypertension) Diabetes Mother No problems noted. Maternal Grandfather Prostate cancer Sister No problems noted. Sister No problems noted. Sister No problems noted. Sister No problems noted. Sister No problems noted. Son No problems noted. Daughter No problems noted. Daughter No problems noted. Social History Household Members: Children Housing: Apartment Do you presently have visiting nurse or other home services: No Alcohol intake: current Alcohol intake frequency: holidays/special occasions only Patient Tobacco Use Status: Never used Tobacco e-Cigarette/Vaping Use: Never Used Second Hand Smoke Exposure: No Substance Use Type: Marijuana service: No Current occupational status: student Cognitive needs: No Hearing needs: No Vision needs: No Female Reproductive History Menstrual Age of Menarche: 11 Questionnaire PHQ-9 Over the last 2 weeks, how often have you been bothered by any of the following problems? 1. Little interest or pleasure in doing things: not at all 2. Feeling down, depressed, or hopeless: not at all 3. Trouble falling or staying asleep, or sleeping too much: not at all 4. Feeling tired or having little energy: not at all 5. Poor appetite or overeating: not at all 6. Feeling bad about yourself - or that you are a failure or have let yourself or your family down: not at all 7. Trouble concentrating on things, such as reading the newspaper or watching television: not at all 8. Moving or speaking so slowly that other people could have noticed. Or the opposite - being so fidgety or restless that you have been moving around a lot more than usual: not at all 9. Thoughts that you would be better off or of hurting yourself in some way: not at all Total score: 0 Depression Screening Interpretation: Negative Depression Screening Done: Yes [id number] - PHQ-9 Billing: Yes Source: Developed by Drs. Broderick Sam, Shanon Ken, Ramirez Kelly and colleagues, with an educational christy from [employer]. Thrive Questionnaire Date Thrive assessed: 09/23/23 I am a: Patient What is your living situation today?: I have a steady place to live Within the past 12 months, did the food you bought not last and you didn't have the money to get more?: Never true Within the past 12 months, did you worry whether your food would run out before you got money to buy more?: Never true Do you have trouble paying for medicines?: No Do you have trouble getting transportation to medical appointments?: No Do you have trouble paying your heating and electricity bill?: No Do you have trouble taking care of your child, family member or friend?: No Do you have trouble with day-to-day activities such as bathing, preparing meals, shopping, managing finances, etc.?: No Are you currently unemployed and looking for a job?: No Are you interested in more education?: No Please select the resources that you would like help with: None THRIVE Score: 0 AUDIT C Alcohol Use Questionnaire (AUDIT-C) 1. How often do you have a drink containing alcohol?: Monthly or less 2. How many drinks containing alcohol do you have on a typical day when you are drinking?: 1 or 2 3. How often do you have six or more drinks on one occasion?: Never Total Score: 1 Score Reviewed/Action Taken: Yes PADMINI-7 AMB Questionnaire PADMINI-7 Date PADMINI - 7 assessed: 09/23/23 Feeling nervous, anxious, or on edge: 0 = Not at all Not being able to stop or control worryin = Not at all Worrying too much about different things: 0 = Not at all Trouble relaxin = Not at all Being so restless that it is hard to sit still: 0 = Not at all Becoming easily annoyed or irritable: 0 = Not at all Feeling afraid as if something awful might happen: 0 = Not at all Total PADMINI-7 score (0-4 normal; 5-9 mild; 10-14 moderate; 15-21 severe): 0 Source: Developed by Drs. Broderick Sam, Shanon Ken, Ramirez Kelly and colleagues, with an educational christy from [employer]. Review of Systems Const Denies chills, Denies fatigue, Denies headache(s) and Denies weight loss Eyes Denies change in vision, Denies diplopia and Denies eye pain ENT Denies vertigo, Denies dizziness, Denies headache(s) and Denies nasal discharge Card Denies chest pain, Denies rapid heart rate and Denies dyspnea on exertion Resp Denies chest congestion, Denies cough, Denies pain with cough and Denies dyspnea on exertion GI Denies abdominal pain, Denies hematochezia and Denies change in bowel habits Musc Denies myalgias, Denies arthralgias and Denies joint swelling Skin/Breast Denies lesions and Denies unusual bruising Neuro Denies vertigo, Denies dizziness, Denies headache(s) and Denies focal weakness Endo Denies fatigue Physical exam (Primary Care) Vital Signs: Last Vital Signs Pulse 67 09/23/23 08:50 BP 120/84 09/23/23 08:50 Pulse Ox 96 09/23/23 08:50 Oxygen Delivery Method Room Air 09/23/23 08:50 BMI result Body Mass Index 45.9 Tobacco/Smoking Status: Tobacco use Status Tobacco use date assessed 09/23/23 09/23/23 08:55 Patient Tobacco Use Status Never used Tobacco 09/23/23 08:55 e-Cigarette/Vaping Use Never Used 09/23/23 08:55 PHQ-9: PHQ-9 Score PHQ-9: Total score 0 09/23/23 08:56 Depression Screening Interpretation: Negative Thrive Assessment: Date of Thrive Assessment Date Thrive assessed 09/23/23 09/23/23 08:55 Const General: cooperative, healthy appearing and no acute distress Orientation/consciousness: oriented to person, oriented to place and oriented to time HENMT Head: Yes normal to inspection, Yes normocephalic and Yes atraumatic Mouth: Normal oral and palatal mucosa present and tongue normal Throat: Yes posterior oropharynx normal and Yes uvula midline Eyes General: appearance normal, both eyes and all related structures Neck Neck: Yes normal visual inspection, Yes full ROM and Yes no lymphadenopathy Thyroid: Thyroid normal Carotids: normal carotid upstroke Chest Chest palpation & inspection: normal inspection of the chest Resp Effort & Inspection: normal respiratory effort and able to speak in complete sentences Auscultation: clear to auscultation bilaterally Cardio Jugular venous distension: no JVD Palpation: normal PMI Rate: regular rate Rhythm: regular rhythm Heart sounds: S1 normal heart sound present and S2 normal heart sound present GI Inspection: Yes normal to inspection Palpation (GI): Soft to palpation and No hepatosplenomegaly present Auscultation: normal bowel sounds General: Yes no CVA tenderness Back/Spine/Pelvis Back: no CVA tenderness Skin General skin exam: no rashes or lesions noted Neuro General: oriented to person, oriented to place and oriented to time Extrem General: Yes normal to inspection and Yes full ROM Assessment and Plan Assessment & Plan (1) Physical exam: Code(s): Z00.00 - Encounter for general adult medical examination without abnormal findings Plan: do labs Orders: Orders Thyroid Stimulating Hormone Today Z13.29 - Encounter for screening for other suspected endocrine disorder Comprehensive [place]. Panel Fast Today Z13.9 - Encounter for screening, unspecified Complete Blood Count Auto Diff Today Z13.0 - Encounter for screening for diseases of the blood and blood-forming organs and certain disorders involving the immune mechanism Lipid Panel Today Z13.220 - Encounter for screening for lipoid disorders Coding Level of Care Code Est Pt Prev Care 18-39y(90268) Diagnoses Physical exam Z00.00
[2023-09-23 08:50] VITALS: BP 120/84; PULSE 67; O2SAT 96; BMI 45.9
== END 2023-09-23 09:17 | disposition home or self-care (01) ==
PROVIDERS: PCP Internal Medicine; Visit Provider Internal Medicine
DX: Z00.00 Encounter for general adult medical examination without abnormal findings (principal)
CPT/HCPCS: 99395

== ENCOUNTER 2023-09-23 09:29 | Outpatient (REF) | payer OTHER, SELFPAY ==
[2023-09-23 09:51] LABS: MANUAL DIFF FLAG NO
[2023-09-23 10:35] LABS: Basophils Percent Auto 0.2 % (0-2); Eosinophils Absolute Auto 0.2 X10*3/uL (0.0-0.4); Eosinophils Percent Auto 2.3 % (0-4); Hematocrit 35.1 % (37.0-47.0); Hemoglobin 11.1 g/dl (12.0-16.0); Imm Gran Abs Auto 0.03 X10*3/uL (0.00-0.03); Imm Gran Pct Auto 0.3 % (0.0-0.4); Lymphocytes Absolute Auto 2.1 X10*3/uL (1.2-4.9); Lymphocytes Percent Auto 22.9 % (20-40); Mean Corpuscular HGB Conc 31.6 g/dl (31.0-35.0); Mean Corpuscular Hemoglobin 23.7 pg (27.0-33.0); Mean Corpuscular Volume 74.8 fL (80.0-98.0); Mean Platelet Volume 9.8 fL (9.4-12.3); Monocytes Absolute Auto 0.6 X10*3/uL (0.1-1.2); Monocytes Percent Auto 6.2 % (2-11); Neutrophils Absolute Auto 6.2 x10*3/uL (2.0-8.3); Neutrophils Percent Auto 68.1 % (45-73); Platelet Count 358 X10*3/uL (160-400); Red Blood Count 4.69 X10*6/uL (4.20-5.50); Red Cell Distribution Width 15.6 % (11.0-16.0); White Blood Count 9.2 X10*3/uL (4.8-10.8)
[2023-09-23 11:51] LABS: Alanine Aminotransferase 20 U/L (0-31); Albumin Level 3.7 g/dL (3.5-5.0); Alkaline Phosphatase 90 U/L (39-117); Anion Gap 11 (12-20); Aspartate Amino Transferase 18 U/L (5-31); Bilirubin Total 0.5 mg/dL (0.0-1.0); Blood Urea Nitrogen 7 mg/dL (9-16); Carbon Dioxide 26 mmol/L (22-29); Chloride 107 mmol/L (96-108); Cholesterol 153 mg/dL (<200); Estimated Glomerular Filt Rate > 60; Glucose Fasting 83 mg/dL (60-99); HDL Cholesterol 43 mg/dL (>40); LDL Cholesterol Calculated 102 mg/dL (<100); Potassium 3.5 mmol/L (3.3-5.1); Sodium 140 mmol/L (135-145); Thyroid Stimulating Hormone 0.71 uIU/mL (0.32-4.0); Total Protein 7.2 g/dL (6.5-8.0); Triglycerides 44 mg/dL (<150)
== END 2023-09-23 09:30 | disposition home or self-care (01) ==
LOC: HO.LAB 09:29
PROVIDERS: PCP Internal Medicine; Visit Provider Internal Medicine
DX: Z13.0 Encounter for screening for diseases of the blood and blood-forming organs and certain disorders involving the immune mechanism (principal); Z13.220 Encounter for screening for lipoid disorders; Z13.9 Encounter for screening, unspecified; Z13.29 Encounter for screening for other suspected endocrine disorder
CPT/HCPCS: 36415; 80053; 80061; 84443; 85025

== ENCOUNTER 2023-10-07 06:09 | Outpatient (REF) | payer OTHER, SELFPAY ==
[2023-10-07 08:12] LABS: Iron 30 mcg/dL (30-160); Percent Iron Saturation 10 % (15-50); Total Iron Binding Capacity 306 mcg/dL (228-428); Unsaturated Iron Binding 276 ug/dL
== END 2023-10-07 06:10 | disposition home or self-care (01) ==
LOC: HO.LAB 06:09
PROVIDERS: PCP Internal Medicine; Visit Provider Internal Medicine
DX: E61.1 Iron deficiency (principal)
CPT/HCPCS: 36415; 83540

== ENCOUNTER 2023-10-11 22:53 | Emergency (ER) | payer OTHER, SELFPAY ==
[2023-10-11 23:04] VITALS: BP 122/53; PULSE 60; RESP 18; TEMP 36.5; O2SAT 98; BMI 45.8
--- NOTE | 2023-10-11 23:22 | MHC.EDTECH ---
PATIENT URINE SAMPLE COLLECTED AND SENT TO LAB .
[2023-10-11 23:29] LABS: Appearance Urine Clear; Color Urine Yellow; Glucose Urine UA Negative (Negative); Leukocyte Esterase Urine Trace (Negative); Nitrite Urine Negative (Negative); PH 5.5 (5.0-9.0); Specific Gravity - Urine >= 1.030 (1.005-1.025); UMIC TRIGGER UACC YES; Urine Blood Negative (Negative); Urine Ketones Negative (Negative); Urine Protein Negative (Neg-Trace)
[2023-10-11 23:34] LABS: Bacteria Urine None Seen (None Seen); Hyaline Casts Urine 0-2 /LPF (0-2); RBC Urine 0-2 /HPF (0-2); UACC Culture Trigger YES; WBC Urine 21-50 /HPF (0-5)
--- NOTE | 2023-10-12 00:22 | ED_ITS ---
HPI - Female Genitourinary General Chief complaint: Urogenital-Female Stated complaint: pain with urination Time Seen by Provider: 10/12/23 00:17 Source: patient Mode of arrival: ambulatory Limitations: no limitations History of Present Illness ED Provider: Dr. Amaris Donato HPI Narrative: Patient comes to the emergency room complaining of dysuria and frequency, no hematuria, no abdominal pain or flank pain. Patient states that she has frequent UTIs, approximately once every 2 months. Patient states that she has a urologist. Related Data Previous Rx's ?Medication ?Instructions ?Recorded cefuroxime axetil 250 mg tablet 250 mg PO BID #14 tabs 10/12/23 nitrofurantoin 100 mg PO ONCE PRN UTI #20 caps 10/12/23 monohydrate/macrocrystals 100 mg capsule (Macrobid) Allergies Allergy/AdvReac Type Severity Reaction Status Date / Time No Known Allergies Allergy Verified 10/11/23 23:06 Review of Systems Review of Systems: Constitutional : No Weight loss, No Fever, No Chills, No Night Sweats, No Fatigue, No Malaise ENT/Mouth : No Hearing loss, No Ear Pain, No Nasal Congestion, No Sinus Pain, No Hoarseness, No sore throat, No Rhinorrhea, No Swallowing Difficulty Eyes: No Eye Pain, No Swelling, No Redness, No Foreign Body, No Discharge, No Vision Changes Cardiovascular : No Chest Pain, No SOB, No Dyspnea on Exertion, No Orthopnea, No Edema, No Palpitations Respiratory : No Cough, No Sputum, No Wheezing, No Smoke Exposure, No Dyspnea Gastrointestinal : No Nausea, No Vomiting, No Diarrhea, No Constipation, No abdominal Pain, No Hematochezia, No Melena Genitourinary : no irregular bleeding, complaining of Dysuria and Urinary Frequency, No Hematuria, No Urinary Incontinence, No Urgency, No Flank Pain, No Urinary Flow Changes, No Hesitancy Musculoskeletal : No joint pain, No Myalgias, No Joint Swelling Skin : No Skin Lesions, No rash Neuro : No Weakness, No Numbness, No Paresthesias, No Loss of Consciousness, No Dizziness, No Headache Psych : No Anxiety/Panic, No Depression, No SI/HI/AH/VH, No Social Issues, Heme/Lymph: No Bruising, No Bleeding,No Lymphadenopathy Endocrine : No Polyuria, No Polydipsia, No Temperature Intolerance PMFSH Past Medical History Medical History Physical exam Morbid obesity Acute cholecystitis Gallstones Gallstone Surgical History Status post cholecystectomy History of laparoscopic cholecystectomy History of 3 sections History of tubal ligation Family History Family History Father HTN (hypertension) Diabetes Mother No problems noted. Maternal Grandfather Prostate cancer Sister No problems noted. Sister No problems noted. Sister No problems noted. Sister No problems noted. Sister No problems noted. Son No problems noted. Daughter No problems noted. Daughter No problems noted. Social History Social History Household Members: Children Housing: Apartment Do you presently have visiting nurse or other home services: No Alcohol intake: current Alcohol intake frequency: holidays/special occasions only Patient Tobacco Use Status: Never used Tobacco e-Cigarette/Vaping Use: Never Used Second Hand Smoke Exposure: No Substance Use Type: Marijuana Advance Directives: No Advance Directives Information Provided: No Do you have a plan to hurt others: No Plan Patient : No service: No Current occupational status: student Cognitive needs: No Hearing needs: No Vision needs: No Physical Exam Vital Signs: Vital Signs: Last Vital Signs Temp 97.7 F 10/11/23 23:04 Pulse 60 10/11/23 23:04 Resp 18 10/11/23 23:04 BP 122/53 L 10/11/23 23:04 Pulse Ox 98 10/11/23 23:04 O2 Del Method Room Air 10/11/23 23:04 BMI result Body Mass Index 45.8 Const: Other: Appearance: Alert. Oriented X3. No acute distress. Eyes: Pupils equal, round and reactive to light. ENT: Pharynx normal. Neck: Normal inspection. Neck supple. No lymph nodes noted. No crepitus CVS: Normal heart rate and rhythm. Pulses normal. Normal S1 and S2 Respiratory: No respiratory distress. Breath sounds normal. No Wheezing. No rales Abdomen: Soft and nontender. No rigidity. No distention. Skin: Skin warm and dry. Normal skin color. Normal skin turgor. Extremities: No lower extremity edema. No Lacerations. No Rash Neuro: Oriented X 3. No motor deficit. No sensory deficit. Moving all extremities. No slurred speech. CN 2 through 12 grossly intact Psych: calm, cooperative, normal affect Medical Decision Making Medical Decision Making MDM Narrative: -I discussed the urinalysis with the patient, patient does have a UTI. HCG negative -patient states that she has recurrent UTIs, states that it is unclear what the causes. After speaking with the patient, patient is sexually active, patient may be prone to frequent UTIs. Discussed with the patient that after this current treatment, she can try taking Macrobid after sexual activity to prevent UTIs, patient agrees with plan and would like to try take antibiotics after sexual intercourse Differential Diagnosis Differential Diagnoses: The differential diagnosis associated with the presentation includes (UTI, pyelonephritis, cystitis) Lab Data MDM Lab Attestation statement: I reviewed the patient's lab results. Labs: Lab Results 10/11/23 Range/Units 23:21 Urine Color Yellow Urine Appearance Clear Urine pH 5.5 (5.0-9.0) Ur Specific [place] >= 1.030 H (1.005-1.025) Urine Protein Negative (Neg-Trace) mg/dL Urine Glucose (UA) Negative (Negative) mg/dL Urine Ketones Negative (Negative) mg/dL Urine Blood Negative (Negative) Urine Nitrite Negative (Negative) Ur Leukocyte Esterase Trace H (Negative) Urine RBC 0-2 (0-2) /HPF Urine WBC 21-50 H (0-5) /HPF Ur Squamous Epith Cells 3-5 (0-2) /HPF Urine Bacteria None Seen (None Seen) Hyaline Casts 0-2 (0-2) /LPF Urine Test NEGATIVE (NEGATIVE) Discharge Plan Discharge Clinical Impression: Urinary tract infection Patient Disposition: Home, Self-Care Instructions: Urinary Tract Infection in Women (ED) Additional Instructions: Please follow-up with your primary care physician tomorrow. If you have any worsening or new symptoms, please return to the emergency room or call 911 Prescriptions: New cefuroxime axetil 250 mg tablet 250 mg PO BID Qty: 14 0RF nitrofurantoin monohyd/m-cryst [Macrobid] 100 mg capsule 100 mg PO ONCE PRN (Reason: UTI) Qty: 20 0RF Rx Instructions: must administer with a meal/food, take 1 tablet after sexual intercourse Print Language: Mongolian
[2023-10-12 00:29] LABS: UPreg QC Valid YES; Urine Pregnancy NEGATIVE (NEGATIVE)
[2023-10-12] MEDS: cefuroxime axetiL 250 MG TABLET PO (00:46)
[2023-10-12 00:56] VITALS: BP 103/67; PULSE 64; RESP 18; TEMP 36.2; O2SAT 95
== END 2023-10-12 00:57 | disposition home or self-care (01) ==
PROVIDERS: Emergency Provider Emergency Medicine; PCP Internal Medicine
DX: N39.0 Urinary tract infection, site not specified (principal); Z87.440 Personal history of urinary (tract) infections
CPT/HCPCS: 81001; 81025; 87086; 99283; 99284

== ENCOUNTER 2024-03-30 10:44 | Outpatient (AMB) | payer OTHER, SELFPAY ==
--- NOTE | 2024-03-30 10:46 | MHC.PC.OV ---
Vital Signs 03/30/24 10:48 Height 5 ft Weight 242 lb BMI 47.3 BP 130/76 Blood Pressure Location Lt brachial Position Sitting Pulse 74 Pulse Source Pulse Oximeter Pulse Oximetry (%) 99 Oxygen Delivery Method Room Air Intake Visit Reasons: Wegovy Med Review Intake Note: Patient is here to follow up on Wegovy review and weight check. 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 Tobacco Weigher: Not Required per policy Accompanied by: Self / Same As Patient Allergies No Known Allergies Allergy (Verified 03/30/24 10:47) Medication List - Last Reconciled 03/30/24 by Hugo Gamble MD ferrous sulfate 325 mg PO BID Tobacco use date assessed: 09/23/23 Dental Screening Dental Screen Date: 09/23/23 HPI Wegovy Med Review HPI Details history of anemia; fatigued; intersted in weight loss [facility] Medical History Physical exam Morbid obesity Acute cholecystitis Gallstones Gallstone Surgical History Status post cholecystectomy History of laparoscopic cholecystectomy History of 3 sections History of tubal ligation Family History (Updated 03/30/24 @ 10:46 by REGINA Duke) Father HTN (hypertension) Diabetes Mother No problems noted. Maternal Grandfather Prostate cancer Sister No problems noted. Sister No problems noted. Sister No problems noted. Sister No problems noted. Sister No problems noted. Son No problems noted. Daughter No problems noted. Daughter No problems noted. Social History Household Members: Children Housing: Apartment Do you presently have visiting nurse or other home services: No Alcohol intake: current Alcohol intake frequency: holidays/special occasions only Patient Tobacco Use Status: Never used Tobacco e-Cigarette/Vaping Use: Never Used Second Hand Smoke Exposure: No Substance Use Type: Marijuana service: No Current occupational status: student Cognitive needs: No Hearing needs: No Vision needs: No Female Reproductive History Menstrual Age of Menarche: 11 Questionnaire Thrive Questionnaire Date Thrive assessed: 09/23/23 PADMINI-7 AMB Questionnaire PADMINI-7 Date PADMINI - 7 assessed: 09/23/23 Source: Developed by Drs. Broderick L. CecyShanon will, Ramirez Kelly and colleagues, with an educational christy from [employer]. Review of Systems Const Denies chills, Denies headache(s) and Denies weight loss ENT Denies headache(s) Card Denies chest pain, Denies syncope, Denies irregular heart rhythm and Denies dyspnea Resp Denies chest congestion, Denies cough and Denies dyspnea GI Denies abdominal pain, Denies change in stool character, Denies nausea and Denies vomiting Musc Denies deformity and Denies joint swelling Neuro Denies syncope and Denies headache(s) Physical exam (Primary Care) Vital Signs: Last Vital Signs Pulse 74 03/30/24 10:48 BP 130/76 03/30/24 10:48 Pulse Ox 99 03/30/24 10:48 Oxygen Delivery Method Room Air 03/30/24 10:48 BMI result Body Mass Index 47.3 Tobacco/Smoking Status: Tobacco use Status Tobacco use date assessed 09/23/23 03/30/24 10:53 Patient Tobacco Use Status Never used Tobacco 03/30/24 10:53 e-Cigarette/Vaping Use Never Used 03/30/24 10:53 Thrive Assessment: Date of Thrive Assessment Date Thrive assessed 09/23/23 03/30/24 10:53 Const General: cooperative, comfortable, no acute distress and alert Neck Neck: Yes no lymphadenopathy Thyroid: Thyroid normal Resp Effort & Inspection: normal respiratory effort Auscultation: clear to auscultation bilaterally Percussion: percussion normal Cardio Jugular venous distension: no JVD Palpation: normal PMI Rate: regular rate Rhythm: regular rhythm Heart sounds: S1 normal heart sound present and S2 normal heart sound present GI Inspection: Yes normal to inspection Palpation (GI): No hepatosplenomegaly present Skin General skin exam: no rashes or lesions noted Extrem General: Yes no clubbing, cyanosis or edema Coding Level of Care Code Est Pt Level 3 (23262) Diagnoses Morbid obesity E66.01 Assessment & Plan Assessment & Plan (1) Morbid obesity: Code(s): E66.01 - Morbid (severe) obesity due to excess calories Category: Medical Plan: check labs Orders: Orders Lipid Panel Today Z13.220 - Encounter for screening for lipoid disorders Thyroid Stimulating Hormone Today Z13.29 - Encounter for screening for other suspected endocrine disorder Complete Blood Count Auto Diff Today Z13.0 - Encounter for screening for diseases of the blood and blood-forming organs and certain disorders involving the immune mechanism Comprehensive [place]. Panel Fast Today Z13.9 - Encounter for screening, unspecified Syphilis Screen Today Z20.2 - Contact with and (suspected) exposure to infections with a predominantly sexual mode of transmission Hepatitis C Antibody Today Z20.2 - Contact with and (suspected) exposure to infections with a predominantly sexual mode of transmission HIV Ab/Ag Today Z20.2 - Contact with and (suspected) exposure to infections with a predominantly sexual mode of transmission Herpes Simplex Virus Ab IgG Today Z20.2 - Contact with and (suspected) exposure to infections with a predominantly sexual mode of transmission
[2024-03-30 10:48] VITALS: BP 130/76; PULSE 74; O2SAT 99; BMI 47.3
== END 2024-03-30 11:03 | disposition home or self-care (01) ==
PROVIDERS: PCP Internal Medicine; Visit Provider Internal Medicine
DX: E66.01 Morbid (severe) obesity due to excess calories (principal); Z68.42 Body mass index [BMI] 45.0-49.9, adult

== ENCOUNTER 2024-04-01 10:41 | Outpatient (REF) | payer OTHER, SELFPAY ==
[2024-04-01 11:04] LABS: MANUAL DIFF FLAG NO
[2024-04-01 11:18] LABS: Basophils Absolute Auto 0.1 X10*3/uL (0.0-0.2); Basophils Percent Auto 0.6 % (0-2); Eosinophils Absolute Auto 0.2 X10*3/uL (0.0-0.4); Eosinophils Percent Auto 2.2 % (0-4); Hematocrit 36.5 % (37.0-47.0); Hemoglobin 11.6 g/dl (12.0-16.0); Imm Gran Abs Auto 0.03 X10*3/uL (0.00-0.03); Imm Gran Pct Auto 0.3 % (0.0-0.4); Lymphocytes Absolute Auto 2.1 X10*3/uL (1.2-4.9); Lymphocytes Percent Auto 23.3 % (20-40); Mean Corpuscular HGB Conc 31.8 g/dl (31.0-35.0); Mean Corpuscular Hemoglobin 24.4 pg (27.0-33.0); Mean Corpuscular Volume 76.7 fL (80.0-98.0); Mean Platelet Volume 9.5 fL (9.4-12.3); Monocytes Absolute Auto 0.5 X10*3/uL (0.1-1.2); Monocytes Percent Auto 5.4 % (2-11); Neutrophils Absolute Auto 6.2 x10*3/uL (2.0-8.3); Neutrophils Percent Auto 68.2 % (45-73); Platelet Count 362 X10*3/uL (160-400); Red Blood Count 4.76 X10*6/uL (4.20-5.50); Red Cell Distribution Width 14.6 % (11.0-16.0); White Blood Count 9.1 X10*3/uL (4.8-10.8)
[2024-04-01 12:06] LABS: HIV AB/AG Nonreactive (Nonreactive); HIV Num 1 0.06 S/CO (0.00-0.99); ~HepC Num1 0.15 S/CO (0.00-0.79); ~Hepatitis C Antibody Nonreactive (Nonreactive)
[2024-04-01 12:08] LABS: Syphilis Screen Nonreactive (Nonreactive)
[2024-04-01 12:11] LABS: Alanine Aminotransferase 17 U/L (0-31); Albumin Level 3.8 g/dL (3.5-5.0); Alkaline Phosphatase 96 U/L (39-117); Anion Gap 11 (12-20); Aspartate Amino Transferase 16 U/L (5-31); Bilirubin Total 0.3 mg/dL (0.0-1.0); Blood Urea Nitrogen 6 mg/dL (9-16); Calcium 8.9 mg/dL (8.4-10.2); Carbon Dioxide 25 mmol/L (22-29); Chloride 106 mmol/L (96-108); Cholesterol 152 mg/dL (<200); Estimated Glomerular Filt Rate > 60; Glucose Fasting 89 mg/dL (60-99); HDL Cholesterol 43 mg/dL (>40); LDL Cholesterol Calculated 99 mg/dL (<100); Potassium 3.7 mmol/L (3.3-5.1); Sodium 138 mmol/L (135-145); Total Protein 7.4 g/dL (6.5-8.0); Triglycerides 52 mg/dL (<150)
[2024-04-01 12:14] LABS: Thyroid Stimulating Hormone 0.61 uIU/mL (0.32-4.0)
[2024-04-02 23:03] LABS: Herpes Simplex Type 2 IgG <0.90 index
== END 2024-04-01 10:42 | disposition home or self-care (01) ==
LOC: HO.LAB 10:41
PROVIDERS: PCP Internal Medicine; Visit Provider Internal Medicine
DX: Z13.0 Encounter for screening for diseases of the blood and blood-forming organs and certain disorders involving the immune mechanism (principal); Z13.29 Encounter for screening for other suspected endocrine disorder; Z20.2 Contact with and (suspected) exposure to infections with a predominantly sexual mode of transmission; Z13.220 Encounter for screening for lipoid disorders
CPT/HCPCS: 36415; 80053; 80061; 84443; 85025; 86695; 86696; 86780; 86803; 87389

== ENCOUNTER 2024-04-15 09:29 | Outpatient (AMB) | payer OTHER, SELFPAY ==
--- NOTE | 2024-04-15 09:54 | MHC.PC.OV ---
Vital Signs 04/15/24 09:57 Height 5 ft Weight 247 lb BMI 48.2 BP 100/76 Blood Pressure Location Lt brachial Position Sitting Pulse 72 Pulse Source Pulse Oximeter Temp 97.1 F Temp Source Skin Pulse Oximetry (%) 97 Oxygen Delivery Method Room Air Intake Visit Reasons: Uti , pain Intake Note: Patient is here to follow up on possible uti and pain. Symptoms are frequency, urge to urinate, and burning sensation Business Banking Manager Required: No Recordings Librarian: Not Required per policy Accompanied by: Self / Same As Patient Allergies No Known Allergies Allergy (Verified 04/15/24 10:36) Medication List - Last Reconciled 04/15/24 by Jes Brewster PA-C ferrous sulfate 325 mg PO BID nitrofurantoin monohyd/m-cryst 100 mg (Macrobid) 100 mg PO Q12H 7 days phenazopyridine (Pyridium) 100 mg PO TID PRN 6 doses Tobacco use date assessed: 04/15/24 Dental Screening Dental Screen Date: 04/15/24 Did you have a dental visit in the last 12 months?: Yes Did you have a dental problem in the last 6 months where you did not have access to dental care?: No Was dental information given to patient?: Patient has dentist [facility] Medical History Physical exam Morbid obesity Acute cholecystitis Gallstones Gallstone Surgical History Status post cholecystectomy History of laparoscopic cholecystectomy History of 3 sections History of tubal ligation Family History Father HTN (hypertension) Diabetes Mother No problems noted. Maternal Grandfather Prostate cancer Sister No problems noted. Sister No problems noted. Sister No problems noted. Sister No problems noted. Sister No problems noted. Son No problems noted. Daughter No problems noted. Daughter No problems noted. Social History Household Members: Children Housing: Apartment Do you presently have visiting nurse or other home services: No Alcohol intake: current Alcohol intake frequency: holidays/special occasions only Patient Tobacco Use Status: Never used Tobacco e-Cigarette/Vaping Use: Never Used Second Hand Smoke Exposure: No Substance Use Type: Marijuana service: No Current occupational status: student Cognitive needs: No Hearing needs: No Vision needs: No Female Reproductive History Menstrual Age of Menarche: 11 Questionnaire PHQ-9 Over the last 2 weeks, how often have you been bothered by any of the following problems? 1. Little interest or pleasure in doing things: not at all 2. Feeling down, depressed, or hopeless: not at all 3. Trouble falling or staying asleep, or sleeping too much: not at all 4. Feeling tired or having little energy: not at all 5. Poor appetite or overeating: not at all 6. Feeling bad about yourself - or that you are a failure or have let yourself or your family down: not at all 7. Trouble concentrating on things, such as reading the newspaper or watching television: not at all 8. Moving or speaking so slowly that other people could have noticed. Or the opposite - being so fidgety or restless that you have been moving around a lot more than usual: not at all 9. Thoughts that you would be better off or of hurting yourself in some way: not at all Total score: 0 Depression Screening Interpretation: Negative Depression Screening Done: Yes Source: Developed by Drs. Broderick Sam, Shanon Ken, Ramirez Kelly and colleagues, with an educational christy from [email or web address]. Thrive Questionnaire Date Thrive assessed: 04/15/24 I am a: Patient What is your living situation today?: I have a steady place to live Within the past 12 months, did the food you bought not last and you didn't have the money to get more?: Never true Within the past 12 months, did you worry whether your food would run out before you got money to buy more?: Never true Do you have trouble paying for medicines?: No Do you have trouble getting transportation to medical appointments?: No Do you have trouble paying your heating and electricity bill?: No Do you have trouble taking care of your child, family member or friend?: No Do you have trouble with day-to-day activities such as bathing, preparing meals, shopping, managing finances, etc.?: No Are you currently unemployed and looking for a job?: No Are you interested in more education?: No Please select the resources that you would like help with: None Currently or been in a relationship where the following occur: No concerns reported THRIVE Score: 0 AUDIT C Alcohol Use Questionnaire (AUDIT-C) 1. How often do you have a drink containing alcohol?: Monthly or less 2. How many drinks containing alcohol do you have on a typical day when you are drinking?: 1 or 2 3. How often do you have six or more drinks on one occasion?: Never Total Score: 1 PADMINI-7 AMB Questionnaire PADMINI-7 Date PADMINI - 7 assessed: 04/15/24 Feeling nervous, anxious, or on edge: 0 = Not at all Not being able to stop or control worryin = Not at all Worrying too much about different things: 0 = Not at all Trouble relaxin = Not at all Being so restless that it is hard to sit still: 0 = Not at all Becoming easily annoyed or irritable: 0 = Not at all Feeling afraid as if something awful might happen: 0 = Not at all Total PADMINI-7 score (0-4 normal; 5-9 mild; 10-14 moderate; 15-21 severe): 0 Source: Developed by Drs. Broderick Sam, Shanon Ken, Ramirez Kelly and colleagues, with an educational christy from [email or web address]. Physical exam (Primary Care) Vital Signs: Last Vital Signs Temp 97.1 F 04/15/24 09:57 Pulse 72 04/15/24 09:57 BP 100/76 04/15/24 09:57 Pulse Ox 97 04/15/24 09:57 Oxygen Delivery Method Room Air 04/15/24 09:57 Care Plan Goal for BP management: Blood pressure at goal at 100/76. Will continue to monitor. No regimen indicated at this time. BMI result Body Mass Index 48.2 BMI Assessment/Plan discussion: High BMI High, discussed plan: lifestyle, weight reduction, dietary, physical activity and alcohol moderation Tobacco/Smoking Status: Tobacco use Status Tobacco use date assessed 04/15/24 04/15/24 10:02 Patient Tobacco Use Status Never used Tobacco 04/15/24 09:54 e-Cigarette/Vaping Use Never Used 04/15/24 09:54 PHQ-9: PHQ-9 Score PHQ-9: Total score 0 04/15/24 10:07 Depression Screening Interpretation: Negative Thrive Assessment: Date of Thrive Assessment Date Thrive assessed 04/15/24 04/15/24 10:02 Currently or been in a relationship where the following occur: No concerns reported Results AMB Urinalysis, Automated UA Leukoctes 2 Alfonso/uL Last Edit by Alvarez Lauren Jil on 04/15/24 10:24 UA Nitrite Positive Last Edit by Alvarez Lauren [facility] on 04/15/24 10:24 UA Urobilinogen 2 mg/dL Last Edit by Alvarez Lauren [facility] on 04/15/24 10:24 UA Protein 0 mg/dL Last Edit by Alvarez Lauren [facility] on 04/15/24 10:24 UA pH 6.0 Last Edit by Alvarez Lauren [facility] on 04/15/24 10:24 UA Blood 0 Pablo/uL Last Edit by Alvarez Lauren [facility] on 04/15/24 10:24 UA Specific [place] 1.015 Last Edit by Alvarez Lauren [facility] on 04/15/24 10:24 UA Ketone Negative Last Edit by Alvarez Lauren [facility] on 04/15/24 10:24 UA Bilirubin 2 mg/dL Last Edit by Alvarez Lauren [facility] on 04/15/24 10:24 UA Glucose 1 mg/dL Last Edit by Alvarez Lauren [facility] on 04/15/24 10:24 Results Reviewed Results Reviewed: Laboratory Last Values Urine pH (Auto) 6.0 04/15/24 10:21 Specific [place] (Auto) 1.015 04/15/24 10:21 Urine Protein (Auto) 0 mg/dL 04/15/24 10:21 Glucose (UA)(Auto) 1 mg/dL 04/15/24 10:21 Urine Ketones (Auto) Negative 04/15/24 10:21 Urine Blood (Auto) 0 Pablo/uL 04/15/24 10:21 Urine Nitrite (Auto) Positive A* 04/15/24 10:21 Urine Bilirubin (Auto) 2 mg/dL H* 04/15/24 10:21 Urine Urobilinogen (Auto) 2 mg/dL H* 04/15/24 10:21 Leukocyte Esterase (Auto) 2 Alfonso/uL H* 04/15/24 10:21 Coding Level of Care Code Est Pt Level 4 (27816) Complex EM visit Add On G2211 Diagnoses Dysuria R30.0 Cough R05.9 Morbid obesity E66.01 Assessment & Plan Assessment & Plan (1) Dysuria: Code(s): R30.0 - Dysuria Category: Medical Plan: Patient with urinary frequency, urgency and dysuria. UA consistent with UTI with positive nitrates and leukocytes. Will send for urine culture. Patient will be started on Macrobid with Pyridium for symptomatic treatment. Will follow-up on urine culture. (2) Cough: Code(s): R05.9 - Cough, unspecified Category: Medical Plan: Patient's swab for COVID/RSV and flu. If negative will treat with Z-Rafal for upper respiratory infection. Patient given work note until Friday. Will continue to monitor. No imaging indicated as H&P not consistent with pneumonia or any other acute processes. (3) Morbid obesity: Code(s): E66.01 - Morbid (severe) obesity due to excess calories Category: Medical Plan: Condition is chronic and stable will continue to monitor. Plan Plan - Prescribe nitrofurantoin for Urinary Tract Infection. - Prescribe azithromycin Z-Rafal) if viral tests are negative. - Conduct COVID, RSV, and influenza tests. Orders: Orders AMB Urinalysis Automated Today Z13.9 - Encounter for screening, unspecified UA CC w/rflx Micro + Cult Today R30.0 - Dysuria Ur Preg Test Today R30.0 - Dysuria SARS-CoV2/FLU/RSV Today R05.9 - Cough, unspecified, R30.0 - Dysuria Medications: New nitrofurantoin monohyd/m-cryst 100 mg (Macrobid) must administer with a meal/food 100 mg PO Q12H 7 days 14 caps 0RF phenazopyridine (Pyridium) 100 mg PO TID PRN 6 tabs 0RF pain Patient Instructions: Patient Instructions - Take the prescribed nitrofurantoin for the urinary tract infection. - Monitor symptoms closely and use [id number] medication for symptom relief as needed. - If viral tests are negative, start azithromycin if advised. - Follow prevention measures and avoid work if tested positive for COVID-19, RSV, or influenza as advised. - Return to the clinic if symptoms worsen or do not improve. Scribe Plan - Not visible on output: History of Present Illness The patient is a 33-year-old female presenting with urinary symptoms and throat discomfort. She reports a sensation of bladder fullness and the frequent need to urinate, though only small amounts are discharged. These symptoms are accompanied by slight burning sensations but are devoid of any abnormal discharge, rash, or foul smell. Additionally, the patient notes abdominal cramping pain, which began a day prior. The patient denies any recent urinary tract infections since a possible episode in September. She has been subjected to recent lab tests ruling out sexually transmitted infections. Alongside these symptoms, the patient reports having a mild cough and throat soreness, both starting approximately two to three days ago. She was recently exposed to individuals with COVID-19 and RSV at work. The patient has been utilizing [id number]-[id number] azo with no symptomatic relief. Social History - Denies smoking. - Works on weekends, but specifics about her occupation or activity details were not discussed. Review of Systems - Gastrointestinal: Reports abdominal cramping. - Respiratory: Reports a mild cough and throat soreness. - Genitourinary: Reports bladder fullness, frequent urination, slight burning with urination. Denies abnormal discharge, itching, rash, or foul-smelling urine. Physical Exam Appearance: Alert. Oriented X3. No acute distress. Head: Normal external exam. Normocephalic. Atraumatic. Eyes: Pupils are equal, round, and reactive to light. Extraocular movements intact. Conjunctiva and sclera normal. Eyelids normal. Ears: External auditory canal normal. Tympanic membranes show a little bit of fluid in one ear. Throat: Pharynx shows white spots. Uvula midline. Moist mucous membranes. Neck: Normal inspection. Neck supple. Full range of motion. No adenopathy. Thyroid Normal. No meningeal signs. No neck mass noted. Cardiovascular: Normal heart rate and rhythm. Heart sound normal. No murmurs noted. Pulses normal throughout. Respiratory: No respiratory distress. Painless inspiration. Breath sounds normal. No wheezes/rales/rhonchi noted. Chest nontender. No accessory muscle usage noted or decreased air movement noted. Abdomen: Soft and nontender. Bowel sounds normal in all 4 quadrants. No distention noted. No organomegaly noted. No visible injury noted. Reports abdominal pain like cramping, started yesterday. Back: No costovertebral angle tenderness. Full range of motion noted. Skin: Skin warm and dry. Normal skin color. Normal skin turgor. No rashes/lesions/lacerations noted. Extremities: Extremities exhibit normal range of motion. Extremities nontender. Neuro: Oriented X 3. No motor deficit. No sensory deficit. Reflexes normal. Results - Labs: Urine analysis confirms Urinary Tract Infection. Previous labs negative for sexually transmitted infections. Plan - Prescribe nitrofurantoin for Urinary Tract Infection. - Prescribe azithromycin Z-Rafal) if viral tests are negative. - Conduct COVID, RSV, and influenza tests. Patient was informed and verbally consented to the use of an ambient scribe for clinic note documentation during this visit. Discussion Notes I discussed with the patient the presence of a urinary tract infection confirmed through her urine sample. An appropriate antibiotic, nitrofurantoin, was prescribed to manage her urinary symptoms. We also explored the possibility of a viral upper respiratory infection due to her exposure to respiratory viruses at work and the development of a cough and sore throat. Diagnostic tests for COVID-19, RSV, and influenza were ordered. If these results return negative, I will consider an azithromycin prescription, and the need for work leave will be further evaluated depending on these test outcomes. The potential risks and benefits of the prescribed treatments were discussed, and the patient's agreement was obtained. Patient Instructions - Take the prescribed nitrofurantoin for the urinary tract infection. - Monitor symptoms closely and use [id number] medication for symptom relief as needed. - If viral tests are negative, start azithromycin if advised. - Follow prevention measures and avoid work if tested positive for COVID-19, RSV, or influenza as advised. - Return to the clinic if symptoms worsen or do not improve.
[2024-04-15 09:57] VITALS: BP 100/76; PULSE 72; TEMP 36.2; O2SAT 97; BMI 48.2
== END 2024-04-15 12:05 | disposition home or self-care (01) ==
PROVIDERS: PCP Internal Medicine; Visit Provider Physician Assistant Medical
DX: R30.0 Dysuria (principal); R05.9 Cough, unspecified; E66.01 Morbid (severe) obesity due to excess calories; Z68.42 Body mass index [BMI] 45.0-49.9, adult

== ENCOUNTER 2024-04-15 11:21 | Outpatient (REF) | payer OTHER, SELFPAY ==
[2024-04-15 11:29] LABS: Appearance Urine Clear; Color Urine Orange; Glucose Urine UA 100 mg/dL (Negative); Leukocyte Esterase Urine Negative (Negative); PH 6.5 (5.0-9.0); UMIC TRIGGER UACC YES; UPreg QC Valid YES; Urine Blood Negative (Negative); Urine Ketones Negative (Negative); Urine Pregnancy NEGATIVE (NEGATIVE)
[2024-04-15 11:56] LABS: RBC Urine 0-2 /HPF (0-2); WBC Urine 0-5 /HPF (0-5)
[2024-04-15 11:57] LABS: Bacteria Urine Trace (None Seen); Hyaline Casts Urine 0-2 /LPF (0-2); Squamous Epithelial Cell Urine 0-2 /HPF (0-2)
[2024-04-15 12:14] LABS: Influenza A PCR NEGATIVE (Negative); Influenza B PCR NEGATIVE (Negative); Resp Syncy Virus RNA Qual PCR NEGATIVE (Negative); SARS COV2 PCR INHOUSE NEGATIVE (Negative)
== END 2024-04-15 11:22 | disposition home or self-care (01) ==
LOC: HO.LNP 11:21
PROVIDERS: Visit Provider Physician Assistant Medical
DX: R30.0 Dysuria (principal); R05.9 Cough, unspecified; E66.01 Morbid (severe) obesity due to excess calories; Z68.42 Body mass index [BMI] 45.0-49.9, adult
CPT/HCPCS: 0241U; 81001; 81003; 81025; 99212

== ENCOUNTER 2024-04-21 19:14 | Emergency (ER) | payer OTHER, SELFPAY ==
[2024-04-21 19:20] VITALS: BP 137/86; PULSE 75; RESP 16; TEMP 36.4; O2SAT 100; BMI 48.0
--- NOTE | 2024-04-21 19:25 | ED.GENADULT ---
HPI - General Adult General Chief complaint: Neck Pain/Injury Stated complaint: neck/shoulder pain Time Seen by Provider: 04/21/24 19:25 Source: patient, RN notes reviewed and old records reviewed Mode of arrival: ambulatory Limitations: no limitations History of Present Illness ED Provider: Sean HPI narrative: Patient is a 33-year-old female presenting to the emergency department with complaint of left-sided neck pain radiating to left shoulder since this morning. She denies fall or other trauma. 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 Thinks she may have possibly slept wrong. Denies any weakness, numbness, tingling to left arm. Did not take any lcrf-ens-nimfwwq medications at home. MD complaint: Neck pain Onset (ago): hour(s) Location: neck Radiation: other (Shoulder) Severity: severe Quality: burning Pain Consistency: constant Relieving factors: rest Exacerbating factors: movement Associated symptoms: denies other symptoms Treatments prior to arrival: none Related Data Previous Rx's ?Medication ?Instructions ?Recorded ferrous sulfate 325 mg (65 mg 325 mg PO BID #60 tabs 04/08/24 iron) tablet amoxicillin 875 mg-potassium 1 tab PO BID 10 days #20 tabs 04/15/24 clavulanate 125 mg tablet azithromycin 250 mg tablet See Rx Instructions PO .COMPLEX #6 04/15/24 tabs nitrofurantoin 100 mg PO Q12H 7 days #14 caps 04/15/24 monohydrate/macrocrystals 100 mg capsule (Macrobid) phenazopyridine 100 mg tablet 100 mg PO TID PRN pain 6 doses #6 04/15/24 (Pyridium) tabs cyclobenzaprine 10 mg tablet 10 mg PO TID PRN muscle spasm #10 04/21/24 tabs lidocaine 5 % topical patch 1 patch topical DAILY #15 ea 04/21/24 prednisone 20 mg tablet 40 mg (2 x 20 mg) PO DAILY #10 tabs 04/21/24 Allergies Allergy/AdvReac Type Severity Reaction Status Date / Time No Known Allergies Allergy Verified 04/21/24 19:22 Review of Systems Review of Systems: As per HPI. Yes all other systems are reviewed and are negative Constitutional: Constitutional: Reports as per HPI [facility] Past Medical History Medical History Physical exam Morbid obesity Acute cholecystitis Gallstones Gallstone Surgical History Status post cholecystectomy History of laparoscopic cholecystectomy History of 3 sections History of tubal ligation Family History Family History Father HTN (hypertension) Diabetes Mother No problems noted. Maternal Grandfather Prostate cancer Sister No problems noted. Sister No problems noted. Sister No problems noted. Sister No problems noted. Sister No problems noted. Son No problems noted. Daughter No problems noted. Daughter No problems noted. Social History Social History Household Members: Children Housing: Apartment Do you presently have visiting nurse or other home services: No Alcohol intake: current Alcohol intake frequency: holidays/special occasions only Patient Tobacco Use Status: Never used Tobacco e-Cigarette/Vaping Use: Never Used Second Hand Smoke Exposure: No Substance Use Type: Marijuana Advance Directives: No Advance Directives Information Provided: No Do you have a plan to hurt others: No Plan service: No Current occupational status: student Cognitive needs: No Hearing needs: No Vision needs: No Physical Exam ED Vital Signs: Vital Signs - 24 hr 04/21/24 19:20 Temperature 97.5 F Pulse Rate 75 Respiratory Rate 16 Blood Pressure 137/86 Pulse Oximetry 100 Oxygen Delivery Method Room Air BMI result Body Mass Index 48.0 Vital signs have been reviewed and appear to be correct. Blood pressure normal. Heart rate normal. Respiratory rate normal. Temperature normal. Oxygen saturation normal. Const General: cooperative, healthy appearing and no acute distress Orientation/consciousness: oriented to person, oriented to place, oriented to time and patient oriented x3 Limitations: no limitations HENMT Head: Yes normocephalic and Yes atraumatic Ears: external ears normal General nose exam: Normal external nose present Face and sinus: Yes face symmetric Mouth: oropharynx normal and moist mucous membranes Throat: Yes uvula midline Eyes Pupils: Equal, round and reactive pupils present Neck Neck: Yes normal visual inspection, Yes full ROM, Yes no lymphadenopathy, Yes no meningeal signs, Yes trachea midline and Yes supple Resp Effort & Inspection: normal respiratory effort and able to speak in complete sentences Auscultation: clear to auscultation bilaterally Cardio Rate: regular rate Rhythm: regular rhythm Heart sounds: S1 normal heart sound present and S2 normal heart sound present GI Palpation (GI): Soft to palpation and nontender Auscultation: normoactive bowel sounds General: Yes no CVA tenderness Back/Spine/Pelvis Back: no CVA tenderness Cervical Spine: normal cervical lordosis, cervical ROM normal, cervical muscular tenderness (left lateral), pain with cervical ROM, No Cervical spine tenderness and No step off deformity Skin General skin exam: elasticity normal and turgor normal Neuro General: oriented to person, oriented to place, oriented to time, patient oriented x3, gait normal, tone normal, moves all extremities, Normal light touch and pain sensation, no meningeal signs, no focal motor deficits, CN's II-XI intact bilaterally and deep tendon reflexes 2+ bilaterally Cranial nerves: Yes Equal, round and reactive pupils present Cognition (Neuro): normal cognition Motor exam (neuro): 5/5 motor strength present throughout, Normal motor muscle tone present throughout and Motor abnormalities not present Extrem General: Yes full ROM, Yes no pedal edema and Yes no calf tenderness Left upper extremity: shoulder/upper arm Details: inspection abnormal, tenderness (over trapezius), axillary nerve sensory function normal and normal ROM and hand Details: vascular exam Details: radial pulse present and normal capillary refill Psych Mental Status: mental status grossly normal Affect: normal affect Thought process: Normal thought process present Medical Decision Making Medical Decision Making MDM Narrative: Patient is a 33-year-old female presenting to the emergency department with complaint of left-sided neck pain radiating to left shoulder since this morning. On exam patient is awake, A+Ox3, VS WNL, afebrile, normal neurological exam without focal deficits, physical exam findings as above. Given reported symptoms and physical exam findings, initial differential includes but is not limited to cervical strain, cervical radiculopathy. Do not suspect meningitis, no nuchal rigidity. CT not indicated. Will treat with flexeril and prednisone, lidocaine patches. Follow up with PCP as needed. Return precautions discussed. Patient verbalized understanding of and agreement with plan. Differential Diagnosis Differential Diagnoses: The differential diagnosis associated with the presentation includes As per External Record Review External record reviewed: Inpatient record and Office record Prescription Management I considered prescription management with: Pain Medication and Other Discharge Plan Discharge Clinical Impression: Cervical strain Patient Disposition: Home, Self-Care Instructions: Cervical Strain (DC) Additional Instructions: You were evaluated in the emergency department with complaint of neck pain. Your pain is likely related to a muscle strain. We recommend taking 600mg ibuprofen or 650mg Tylenol. If necessary, you can alternate these medications every three hours. For example, at noon take Tylenol, then at 3:00 take ibuprofen, then at 6:00 take Tylenol, etc. You are also being prescribed a muscle relaxer which you can use up to every 8 hours as needed. You are being prescribed a short course of steroids to decrease inflammation. You are being prescribed topical lidocaine patches which you can wear for 12 hours in a 24 hour period. You should follow up with your primary care provider as you may require physical therapy to improve your symptoms. Return to the emergency department if you develop worsening neck pain or stiffness, new weakness, numbness, or tingling to your arm, severe headaches, or any other concerning symptoms. Prescriptions: New cyclobenzaprine 10 mg tablet 10 mg PO TID PRN (Reason: muscle spasm) Qty: 10 0RF lidocaine 5 % adhesive patch,medicated 1 patch topical DAILY Qty: 15 0RF Rx Instructions: leave on most painful area for up to 12 hrs prednisone 20 mg tablet 40 mg PO DAILY Qty: 10 0RF No Action ferrous sulfate 325 mg (65 mg iron) tablet 325 mg PO BID Qty: 60 2RF azithromycin 250 mg tablet See Rx Instructions PO .COMPLEX Qty: 6 0RF Rx Instructions: For 250 mg dose pack: take 500 mg today (day 1), then 250 mg for 4 days (days 2-5) PO amoxicillin-pot clavulanate 875-125 mg tablet 1 tab PO BID 10 Days Qty: 20 0RF nitrofurantoin monohyd/m-cryst [Macrobid] 100 mg capsule 100 mg PO Q12H 7 Days Qty: 14 0RF Rx Instructions: must administer with a meal/food phenazopyridine [Pyridium] 100 mg tablet 100 mg PO TID PRN (Reason: pain) Qty: 6 0RF Stand Alone Forms: Work/School Release Print Language: Iranian
[2024-04-21 19:50] VITALS: BP 137/86; PULSE 75; RESP 16; TEMP 36.4; O2SAT 100
--- NOTE | 2024-04-21 19:50 | PC.NURSE ---
Pt eval by ROSANA D/C from triage with scripts.
== END 2024-04-21 19:51 | disposition home or self-care (01) ==
PROVIDERS: Emergency Provider Emergency Medicine Emergency Medical Services; PCP Internal Medicine
DX: S16.1XXA Strain of muscle, fascia and tendon at neck level, initial encounter (principal); X50.9XXA Other and unspecified overexertion or strenuous movements or postures, initial encounter; M25.512 Pain in left shoulder; F12.90 Cannabis use, unspecified, uncomplicated; Y93.9 Activity, unspecified; Y92.9 Unspecified place or not applicable; Y99.9 Unspecified external cause status
CPT/HCPCS: 99282; 99283

== ENCOUNTER 2024-04-24 02:58 | Emergency (ER) | payer OTHER, SELFPAY ==
[2024-04-24 03:02] VITALS: BP 115/67; PULSE 74; RESP 16; TEMP 36.1; O2SAT 95; BMI 41.2
--- NOTE | 2024-04-24 07:08 | ED.EXTPRO ---
HPI - Extremity Problem General Chief complaint: Extremity Injury, Upper Stated complaint: arm pain Time Seen by Provider: 04/24/24 06:41 Source: patient Mode of arrival: ambulatory Limitations: no limitations History of Present Illness ED Provider: AIMEE Dutton HPI Narrative: This is a 33-year-old female presenting to the emergency department with neck pain with radiation to left upper extremity ongoing since Friday, 3 days ago. She reports this pain started after she woke up in the morning she feels like she slept wrong. She reports she was seen in the emergency department 3 days ago, she was giving Lidoderm patches and a muscle relaxer along with prednisone which does not seem to be helping. Pain worse with movement better at rest. She also states it hurts if she presses around her left-sided for neck. This has never happened to her before. No blunt trauma. Denies headache, vision changes, dizziness, weakness, chest pain, shortness of breath, fevers and chills Related Data Previous Rx's ?Medication ?Instructions ?Recorded ferrous sulfate 325 mg (65 mg 325 mg PO BID #60 tabs 04/08/24 iron) tablet amoxicillin 875 mg-potassium 1 tab PO BID 10 days #20 tabs 04/15/24 clavulanate 125 mg tablet azithromycin 250 mg tablet See Rx Instructions PO .COMPLEX #6 04/15/24 tabs nitrofurantoin 100 mg PO Q12H 7 days #14 caps 04/15/24 monohydrate/macrocrystals 100 mg capsule (Macrobid) phenazopyridine 100 mg tablet 100 mg PO TID PRN pain 6 doses #6 04/15/24 (Pyridium) tabs cyclobenzaprine 10 mg tablet 10 mg PO TID PRN muscle spasm #10 04/21/24 tabs lidocaine 5 % topical patch 1 patch topical DAILY #15 ea 04/21/24 prednisone 20 mg tablet 40 mg (2 x 20 mg) PO DAILY #10 tabs 04/21/24 acetaminophen 325 mg tablet 650 mg (2 x 325 mg) PO Q6H PRN 04/24/24 (Tylenol) fever or pain #30 tabs ketorolac 10 mg tablet 10 mg PO TID PRN pain 5 days #15 04/24/24 tabs Allergies Allergy/AdvReac Type Severity Reaction Status Date / Time No Known Allergies Allergy Verified 04/24/24 03:04 Review of Systems Review of Systems: Yes all other systems are reviewed and are negative [facility] Past Medical History Attestation statement: The following information was validated with the patient. Source: old records reviewed and nursing notes reviewed Medical History Physical exam Morbid obesity Acute cholecystitis Gallstones Gallstone Surgical History Status post cholecystectomy History of laparoscopic cholecystectomy History of 3 sections History of tubal ligation Family History Family History Father HTN (hypertension) Diabetes Mother No problems noted. Maternal Grandfather Prostate cancer Sister No problems noted. Sister No problems noted. Sister No problems noted. Sister No problems noted. Sister No problems noted. Son No problems noted. Daughter No problems noted. Daughter No problems noted. Social History Social History Household Members: Children Housing: Apartment Do you presently have visiting nurse or other home services: No Alcohol intake: current Alcohol intake frequency: holidays/special occasions only Patient Tobacco Use Status: Never used Tobacco e-Cigarette/Vaping Use: Never Used Second Hand Smoke Exposure: No Substance Use Type: Marijuana Advance Directives: No Advance Directives Information Provided: Yes Do you have a plan to hurt others: No Plan service: No Current occupational status: student Cognitive needs: No Hearing needs: No Vision needs: No Physical Exam Vital Signs: Vital Signs: Last Vital Signs Temp 97 F 04/24/24 03:02 Pulse 74 04/24/24 03:02 Resp 16 04/24/24 03:02 BP 115/67 04/24/24 03:02 Pulse Ox 95 04/24/24 03:02 O2 Del Method Room Air 04/24/24 03:02 BMI result Body Mass Index 41.2 vss Appearance: Alert.? Oriented X3.? No acute distress.? Head: Normocephalic, atraumatic, no step-offs or deformities Eyes: Pupils equal, round and reactive to light.? Neck: Normal inspection.? + tenderness to palpation to left paraspinous muscles in the cervical region as as well as left trapezius, rhomboids CVS: Normal heart rate and rhythm.? Pulses normal.? Respiratory: No respiratory distress.? Breath sounds normal.? Abdomen: Soft and nontender.? Skin: Skin warm and dry.? Normal skin color.? Normal skin turgor.? Extremities: No lower extremity edema.? No calf ttp. 5/5 strength to bilateral upper and lower extremities Back: No midline tenderness, no C-spine tenderness, full range of motion, no CVA tenderness bilaterally Neuro: Oriented X 3.? No motor deficit.? No sensory deficit. CN 2-12 intact Course Reevaluation(s) Reevaluation #1: Patient reports she is feeling better after Toradol and Valium. Will discharge her home with Toradol, Tylenol, educated her to finish the meds she has at home including prednisone and muscle relaxers. Educated patient on diagnosis and treatment plan, answered all question, patient verbalizes understanding. At this time patient will be discharged home, advised to return with new or worsening symptoms. Educated on worrisome signs and symptoms and when to return. At this time I feel comfortable discharge home. Time: 07:58 Medications Administered Discontinued Medications Generic Name Dose Route Start Last Admin Trade Name Hernestoq PRN Reason Stop Dose Admin Diazepam 2 mg 04/24/24 06:59 04/24/24 07:28 Diazepam 2 Mg Tablet PO 04/24/24 07:00 2 mg ONCE ONE Administration Ketorolac Tromethamine 30 mg 04/24/24 06:59 04/24/24 07:28 Ketorolac Tromethamine 30 Mg/Ml Vial IM 04/24/24 07:00 30 mg ONCE ONE Administration Medical Decision Making Medical Decision Making [facility] Narrative: 33-year-old female presents with reproducible neck pain x3 days. Physical exam cervical paraspinous muscle tenderness in the left with tenderness to left trapezius, rhomboids. History and physical exam concerning for cervical radiculopathy. Unlikely meningitis, encephalitis, fracture, dislocation, traumatic subluxation. No signs of neurovascular compromise plan Valium and Toradol Differential Diagnosis Differential Diagnoses: The differential diagnosis associated with the presentation includes ( History and physical exam concerning for cervical radiculopathy. Unlikely meningitis, encephalitis, fracture, dislocation, traumatic subluxation. No signs of neurovascular compromise) Admission/Observation Consideration of admission/observation: Escalation of care including admission/observation considered Lab Data [facility] Lab Attestation statement: I reviewed the patient's lab results. External Record Review External record reviewed: Inpatient record, Office record, Outpatient record, Prior outpatient labs, Prior outpatient radiology, Primary care record and Outside ED record Prescription Management I considered prescription management with: Pain Medication Chronic Conditions Patient?s care impacted by: Other Discharge Plan Discharge Clinical Impression: Cervical radiculopathy Patient Disposition: Home, Self-Care Instructions: Cervical Radiculopathy (ED) Additional Instructions: Take your medications as prescribed. If you were prescribed antibiotics today, it is important that you take your medication to their entirety, do not skip any doses, do not finish them early. Follow-up with your primary care provider this week. Return to the emergency department with new or worsening symptoms. Such as fevers, chills, chest pain, shortness of breath, nausea, vomiting, dizziness, headache, vision changes, lethargy In case of emergency call 911 If pain persists you may want to follow up with your PCP may need a referral to a specialist. Toradol has been sent to your pharmacy, you tolerated this well in the department. Please take this as prescribed do not take this with ibuprofen, or other NSAIDs, do not mix this with alcohol. Side effects of this medication including increased risk for bleeding and possible kidney injury. Prescriptions: New acetaminophen [Tylenol] 325 mg tablet 650 mg PO Q6H PRN (Reason: fever or pain) Qty: 30 0RF ketorolac 10 mg tablet 10 mg PO TID PRN (Reason: pain) 5 Days Qty: 15 0RF Rx Instructions: Tolerated IM or IV in department No Action ferrous sulfate 325 mg (65 mg iron) tablet 325 mg PO BID Qty: 60 2RF azithromycin 250 mg tablet See Rx Instructions PO .COMPLEX Qty: 6 0RF Rx Instructions: For 250 mg dose pack: take 500 mg today (day 1), then 250 mg for 4 days (days 2-5) PO amoxicillin-pot clavulanate 875-125 mg tablet 1 tab PO BID 10 Days Qty: 20 0RF cyclobenzaprine 10 mg tablet 10 mg PO TID PRN (Reason: muscle spasm) Qty: 10 0RF lidocaine 5 % adhesive patch,medicated 1 patch topical DAILY Qty: 15 0RF Rx Instructions: leave on most painful area for up to 12 hrs prednisone 20 mg tablet 40 mg PO DAILY Qty: 10 0RF nitrofurantoin monohyd/m-cryst [Macrobid] 100 mg capsule 100 mg PO Q12H 7 Days Qty: 14 0RF Rx Instructions: must administer with a meal/food phenazopyridine [Pyridium] 100 mg tablet 100 mg PO TID PRN (Reason: pain) Qty: 6 0RF Referrals: Hugo Gamble MD [Primary Care Provider] - 2 days Stand Alone Forms: Work/School Release Print Language: Macedonian
[2024-04-24] MEDS: Ketorolac Tromethamine 30 MG/ML VIAL IM (07:28)
[2024-04-24] MEDS: diazePAM 2 MG TABLET PO (07:28)
[2024-04-24 08:12] VITALS: BP 110/69; PULSE 72; RESP 18; TEMP 36.8; O2SAT 97
== END 2024-04-24 08:13 | disposition home or self-care (01) ==
PROVIDERS: Emergency Provider Emergency Medicine; PCP Internal Medicine
DX: M54.12 Radiculopathy, cervical region (principal); M54.2 Cervicalgia
CPT/HCPCS: 96372; 99283; 99284; J1885

== ENCOUNTER 2024-05-03 09:46 | Outpatient (AMB) | payer OTHER, SELFPAY ==
--- NOTE | 2024-05-03 09:47 | MHC.PC.OV ---
Vital Signs 05/03/24 09:48 Height 5 ft 4 in Weight 246 lb 6 oz BMI 42.3 BP 110/78 Blood Pressure Location Lt brachial Position Sitting Pulse 75 Pulse Source Pulse Oximeter Temp 96.9 F Temp Source Skin Pulse Oximetry (%) 95 Oxygen Delivery Method Room Air Intake Visit Reasons: [facility] 04/24 arm pain Intake Note: Patient is here to follow-up after a visit the emergency department at [facility] on 04/24/24 Care Analyst Required: No Lead Programmer: Present Accompanied by: Child Allergies No Known Allergies Allergy (Verified 05/03/24 09:48) Medication List - Last Reconciled 05/03/24 by Hugo Gamble MD ferrous sulfate 325 mg PO BID prednisone 40 mg (2 x 20 mg) PO DAILY Tobacco use date assessed: 05/03/24 Dental Screening Dental Screen Date: 04/15/24 HPI [facility] 04/24 arm pain HPI Details left paracervical muscle spasm PFSH Medical History Physical exam Morbid obesity Acute cholecystitis Gallstones Gallstone Surgical History Status post cholecystectomy History of laparoscopic cholecystectomy History of 3 sections History of tubal ligation Family History Father HTN (hypertension) Diabetes Mother No problems noted. Maternal Grandfather Prostate cancer Sister No problems noted. Sister No problems noted. Sister No problems noted. Sister No problems noted. Sister No problems noted. Son No problems noted. Daughter No problems noted. Daughter No problems noted. Social History Household Members: Children Housing: Apartment Do you presently have visiting nurse or other home services: No Alcohol intake: current Alcohol intake frequency: holidays/special occasions only Patient Tobacco Use Status: Never used Tobacco e-Cigarette/Vaping Use: Never Used Second Hand Smoke Exposure: No Substance Use Type: Marijuana service: No Current occupational status: student Cognitive needs: No Hearing needs: No Vision needs: No Female Reproductive History Menstrual Age of Menarche: 11 Questionnaire Thrive Questionnaire Date Thrive assessed: 04/15/24 PADMINI-7 AMB Questionnaire PADMINI-7 Date PADMINI - 7 assessed: 04/15/24 Source: Developed by Drs. Broderick Sam, Shanon Ken, Ramirez Kelly and colleagues, with an educational christy from [employer]. Review of Systems Const Denies chills, Denies headache(s) and Denies weight loss ENT Denies headache(s) Card Denies chest pain, Denies syncope, Denies irregular heart rhythm and Denies dyspnea Resp Denies chest congestion, Denies cough and Denies dyspnea GI Denies abdominal pain, Denies change in stool character, Denies nausea and Denies vomiting Musc Denies deformity and Denies joint swelling Neuro Denies syncope and Denies headache(s) Physical exam (Primary Care) Vital Signs: Last Vital Signs Temp 96.9 F 05/03/24 09:48 Pulse 75 05/03/24 09:48 BP 110/78 05/03/24 09:48 Pulse Ox 95 05/03/24 09:48 Oxygen Delivery Method Room Air 05/03/24 09:48 BMI result Body Mass Index 42.3 Tobacco/Smoking Status: Tobacco use Status Tobacco use date assessed 05/03/24 05/03/24 09:52 Patient Tobacco Use Status Never used Tobacco 05/03/24 09:52 e-Cigarette/Vaping Use Never Used 05/03/24 09:52 Thrive Assessment: Date of Thrive Assessment Date Thrive assessed 04/15/24 05/03/24 09:52 Const General: cooperative, comfortable, no acute distress and alert Neck Neck: Yes no lymphadenopathy Thyroid: Thyroid normal Resp Effort & Inspection: normal respiratory effort Auscultation: clear to auscultation bilaterally Percussion: percussion normal Cardio Jugular venous distension: no JVD Palpation: normal PMI Rate: regular rate Rhythm: regular rhythm Heart sounds: S1 normal heart sound present and S2 normal heart sound present GI Inspection: Yes normal to inspection Palpation (GI): No hepatosplenomegaly present Skin General skin exam: no rashes or lesions noted Extrem General: Yes no clubbing, cyanosis or edema Coding Level of Care Code Est Pt Level 3 (41590) Diagnoses Neck pain M54.2 Assessment & Plan Assessment & Plan (1) Neck pain: Code(s): M54.2 - Cervicalgia Plan: rx sent Orders: Orders Complete Blood Count Auto Diff Today Z13.0 - Encounter for screening for diseases of the blood and blood-forming organs and certain disorders involving the immune mechanism IRON PROFILE Today E61.1 - Iron deficiency Medications: New fluconazole (Diflucan) 100 mg PO DAILY 3 tabs 0RF cyclobenzaprine 10 mg PO TID PRN 30 tabs 2RF muscle spasm
[2024-05-03 09:48] VITALS: BP 110/78; PULSE 75; TEMP 36.1; O2SAT 95; BMI 42.3
== END 2024-05-03 10:28 | disposition home or self-care (01) ==
PROVIDERS: PCP Internal Medicine; Visit Provider Internal Medicine
DX: M54.2 Cervicalgia (principal)

== ENCOUNTER → 2024-05-03 09:46 | Outpatient (BNVA) | payer OTHER, SELFPAY | PROVIDERS: PCP Internal Medicine; Visit Provider Internal Medicine | DX: M54.2 Cervicalgia (principal) | CPT/HCPCS: 99212 ==

== ENCOUNTER 2024-05-19 11:47 | Outpatient (REF) | payer OTHER, SELFPAY ==
[2024-05-19 11:56] LABS: MANUAL DIFF FLAG NO
[2024-05-19 12:36] LABS: Basophils Percent Auto 0.5 % (0-2); Eosinophils Absolute Auto 0.2 X10*3/uL (0.0-0.4); Eosinophils Percent Auto 1.9 % (0-4); Hematocrit 37.7 % (37.0-47.0); Hemoglobin 12.2 g/dl (12.0-16.0); Imm Gran Abs Auto 0.01 X10*3/uL (0.00-0.03); Imm Gran Pct Auto 0.1 % (0.0-0.4); Lymphocytes Absolute Auto 2.2 X10*3/uL (1.2-4.9); Lymphocytes Percent Auto 27.4 % (20-40); Mean Corpuscular HGB Conc 32.4 g/dl (31.0-35.0); Mean Corpuscular Hemoglobin 24.5 pg (27.0-33.0); Mean Corpuscular Volume 75.9 fL (80.0-98.0); Mean Platelet Volume 10.3 fL (9.4-12.3); Monocytes Absolute Auto 0.6 X10*3/uL (0.1-1.2); Monocytes Percent Auto 7.3 % (2-11); Neutrophils Percent Auto 62.8 % (45-73); Platelet Count 410 X10*3/uL (160-400); Red Blood Count 4.97 X10*6/uL (4.20-5.50); Red Cell Distribution Width 16.2 % (11.0-16.0); White Blood Count 7.9 X10*3/uL (4.8-10.8)
[2024-05-19 13:56] LABS: Iron 44 mcg/dL (30-160); Percent Iron Saturation 14 % (15-50); Total Iron Binding Capacity 319 mcg/dL (228-428); Unsaturated Iron Binding 275 ug/dL
== END 2024-05-19 11:48 | disposition home or self-care (01) ==
LOC: HO.LAB 11:47
PROVIDERS: PCP Internal Medicine; Visit Provider Internal Medicine
DX: Z13.0 Encounter for screening for diseases of the blood and blood-forming organs and certain disorders involving the immune mechanism (principal); E61.1 Iron deficiency
CPT/HCPCS: 36415; 83540; 85025

== ENCOUNTER 2024-05-20 10:36 | Outpatient (AMB) | payer OTHER, SELFPAY ==
--- NOTE | 2024-05-20 10:45 | MHC.PC.OV ---
Vital Signs 05/20/24 10:46 Height 5 ft 4 in Weight 237 lb 6 oz BMI 40.7 BP 112/68 Blood Pressure Location Lt brachial Position Sitting Pulse 60 Pulse Source Pulse Oximeter Temp 96.9 F Temp Source Temporal Artery Scan Pulse Oximetry (%) 97 Oxygen Delivery Method Room Air Intake Visit Reasons: weight loss meds f/u Intake Note: Patient is here to follow up on weight loss. Honeycomb Blanket Maker Required: No Associate Director Qa: Not Required per policy Accompanied by: Self / Same As Patient Allergies No Known Allergies Allergy (Verified 05/20/24 10:46) Medication List - Last Reconciled 05/20/24 by Hugo Gamble MD ferrous sulfate 325 mg PO BID Tobacco use date assessed: 05/20/24 Dental Screening Dental Screen Date: 04/15/24 HPI weight loss meds f/u HPI Details morbid obesity and interested in bariatric surgery at [facility] Medical History Physical exam Morbid obesity Acute cholecystitis Gallstones Gallstone Surgical History Status post cholecystectomy History of laparoscopic cholecystectomy History of 3 sections History of tubal ligation Family History Father HTN (hypertension) Diabetes Mother No problems noted. Maternal Grandfather Prostate cancer Sister No problems noted. Sister No problems noted. Sister No problems noted. Sister No problems noted. Sister No problems noted. Son No problems noted. Daughter No problems noted. Daughter No problems noted. Social History Household Members: Children Housing: Apartment Do you presently have visiting nurse or other home services: No Alcohol intake: current Alcohol intake frequency: holidays/special occasions only Patient Tobacco Use Status: Never used Tobacco e-Cigarette/Vaping Use: Never Used Second Hand Smoke Exposure: No Substance Use Type: Marijuana service: No Current occupational status: student Cognitive needs: No Hearing needs: No Vision needs: No Female Reproductive History Menstrual Age of Menarche: 11 Questionnaire Thrive Questionnaire Date Thrive assessed: 04/15/24 PADMINI-7 AMB Questionnaire PADMINI-7 Date PADMINI - 7 assessed: 01/16/25 Source: Developed by Drs. Broderick Sam, Shanon Ken, Ramirez Kelly and colleagues, with an educational christy from [employer]. Review of Systems Const Denies chills, Denies headache(s) and Denies weight loss ENT Denies headache(s) Card Denies chest pain, Denies syncope, Denies irregular heart rhythm and Denies dyspnea Resp Denies chest congestion, Denies cough and Denies dyspnea GI Denies abdominal pain, Denies change in stool character, Denies nausea and Denies vomiting Musc Denies deformity and Denies joint swelling Neuro Denies syncope and Denies headache(s) Physical exam (Primary Care) Vital Signs: Last Vital Signs Temp 96.9 F 05/20/24 10:46 Pulse 60 05/20/24 10:46 BP 112/68 05/20/24 10:46 Pulse Ox 97 05/20/24 10:46 Oxygen Delivery Method Room Air 05/20/24 10:46 BMI result Body Mass Index 40.7 Tobacco/Smoking Status: Tobacco use Status Tobacco use date assessed 05/20/24 05/20/24 10:50 Patient Tobacco Use Status Never used Tobacco 05/20/24 10:50 e-Cigarette/Vaping Use Never Used 05/20/24 10:50 Thrive Assessment: Date of Thrive Assessment Date Thrive assessed 04/15/24 05/20/24 10:50 Const General: cooperative, comfortable, no acute distress and alert Neck Neck: Yes no lymphadenopathy Thyroid: Thyroid normal Resp Effort & Inspection: normal respiratory effort Auscultation: clear to auscultation bilaterally Percussion: percussion normal Cardio Jugular venous distension: no JVD Palpation: normal PMI Rate: regular rate Rhythm: regular rhythm Heart sounds: S1 normal heart sound present and S2 normal heart sound present GI Inspection: Yes normal to inspection Palpation (GI): No hepatosplenomegaly present Skin General skin exam: no rashes or lesions noted Extrem General: Yes no clubbing, cyanosis or edema Coding Level of Care Code Est Pt Level 3 (41530) Diagnoses Morbid obesity E66.01 Assessment & Plan Assessment & Plan (1) Morbid obesity: Code(s): E66.01 - Morbid (severe) obesity due to excess calories Category: Medical Plan: referred Orders: Referrals Bariatric Surgery Referral E66.9 - Obesity, unspecified
[2024-05-20 10:46] VITALS: BP 112/68; PULSE 60; TEMP 36.1; O2SAT 97; BMI 40.7
== END 2024-05-20 11:26 | disposition home or self-care (01) ==
PROVIDERS: PCP Internal Medicine; Visit Provider Internal Medicine
DX: E66.01 Morbid (severe) obesity due to excess calories (principal); Z68.41 Body mass index [BMI] 40.0-44.9, adult

== ENCOUNTER → 2024-05-20 10:36 | Outpatient (BNVA) | payer OTHER, SELFPAY | PROVIDERS: PCP Internal Medicine; Visit Provider Internal Medicine | DX: E66.01 Morbid (severe) obesity due to excess calories (principal); Z68.41 Body mass index [BMI] 40.0-44.9, adult; Z71.3 Dietary counseling and surveillance | CPT/HCPCS: 99212 ==

== ENCOUNTER 2024-07-08 10:05 | Outpatient (AMB) | payer OTHER, SELFPAY ==
[2024-07-08 10:09] VITALS: BP 118/70; PULSE 73; TEMP 36.6; O2SAT 98; BMI 40.7
--- NOTE | 2024-07-08 10:09 | AM.OFFWIN_ITS ---
Intake Vital Signs 07/08/24 10:09 Height 5 ft 4 in Weight 237 lb BMI 40.7 BP 118/70 Blood Pressure Location Lt brachial Position Sitting Pulse 73 Pulse Source Pulse Oximeter Temp 97.8 F Temp Source Oral Pulse Oximetry (%) 98 Intake Visit Reasons: EP ? UTI Patient Tobacco Use Status: Never used Tobacco Allergies No Known Allergies Allergy (Verified 07/08/24 10:10) Do you need a note to return to daycare/school/sports/work: No HPI HPI Comments History of Present Illness Details History of Present Illness - The patient is a 33-year-old female pr esenting with persistent Urinary Tract Infection. - She frequently experiences UTIs. Today , has increased frequency of urination and burning sensation. Denies back pn or fevers. - CAlled her PCP with uTI symptoms and w as RX'd Macrobid which she started 4 days ago but reports continued symptoms. - No initial urine sample was taken. - no recent urine culture results avail able. - History of annual urological evaluatio ns. Physical Exam General: Cooperative, healthy appearing, comfortable, no acute distress and well developed Orientation: Patient oriented x3 Limitations: No limitations Head: Normal to inspection Ears: Hearing grossly normal bilaterally Nose: Normal External nose present Face and sinus: Normal facial exam Eyes: Appearance normal, both eyes and all related structures Neck: Normal visual inspection and Yes full ROM Respiratory: Normal respiratory effort and able to speak in complete sentences. Skin: No rashes or lesions noted Neuro: Patient oriented x3 Extremities: Normal to inspection [facility] Medical History Physical exam Morbid obesity Acute cholecystitis Gallstones Gallstone Surgical History Status post cholecystectomy History of laparoscopic cholecystectomy History of 3 sections History of tubal ligation Family History Father HTN (hypertension) Diabetes Mother No problems noted. Maternal Grandfather Prostate cancer Sister No problems noted. Sister No problems noted. Sister No problems noted. Sister No problems noted. Sister No problems noted. Son No problems noted. Daughter No problems noted. Daughter No problems noted. Social History Household Members: Children Housing: Apartment Do you presently have visiting nurse or other home services: No Alcohol intake: current Alcohol intake frequency: holidays/special occasions only Patient Tobacco Use Status: Never used Tobacco e-Cigarette/Vaping Use: Never Used Second Hand Smoke Exposure: No Substance Use Type: Marijuana service: No Current occupational status: student Cognitive needs: No Hearing needs: No Vision needs: No Female Reproductive History Menstrual Age of Menarche: 11 Review of Systems Const All systems reviewed & are unremarkable except as noted in HPI and below Physical Exam Vital Signs: Last Vital Signs Temp 97.8 F 07/08/24 10:09 Pulse 73 07/08/24 10:09 BP 118/70 07/08/24 10:09 Pulse Ox 98 07/08/24 10:09 BMI result Body Mass Index 40.7 Assessment & Plan Assessment & Plan (1) URI, acute: Code(s): J06.9 - Acute upper respiratory infection, unspecified Plan: UA 1+ leuks, nitrite pos. I have instructed the patient to stop taking Macrobid due to its ineffectiveness against the current UTI and prescribed cefuroxime, an alternative antibiotic expected to provide better coverage. The patient will take cefuroxime twice daily for five days, and a urine culture has been sent to confirm the susceptibility and appropriateness of the prescribed antibiotic. If culture results suggest otherwise, adjustments to her treatment will be made over the weekend. This plan aims to promptly address her symptoms while ensuring the chosen antibiotic will effectively eradicate the infection. Patient was informed and verbally consented to the use of an ambient scribe for clinic note documentation during this visit. Orders: Orders Urine Culture Today N39.0 - Urinary tract infection, site not specified Medications: New cefuroxime axetil 500 mg PO Q12H 10 tabs 0RF Coding Level of Care Code Est Pt Level 3 (38716) Diagnoses URI, acute J06.9
--- OUTSIDE RECORDS SUMMARY | 2024-07-08 11:45 | XMS_ITS | Clinical Summary ---
Author Organization [address] [place] [address] [place] [phone] Phone Care Team Providers Care Dowel Pin Worker Name Role Phone Gary Aceves MD Primary Care Provider [phone] Allergies No known active allergies Medications phentermine 15 mg capsuleIndicatio ns:Class 3 severe obesity due to excess calories without serious comorbidity with body mass index (BMI) of 40.0 to 44.9 in adult Take 1 capsule (15 mg total) by mouth 1 (one) time each day before breakfast. Max Daily Amount: 15 mg 30 each 06/29/2024 09/28/19 25 Active Encounters Date Type Department Care Team Description 06/29/2024 3:45 PM EDT Office Visit Bariatric Surgery - [address] [place] [address] Reynaldo Deluca MD Class 3 severe obesity due to excess calories without serious comorbidity with body mass index (BMI) of 40.0 to 44.9 in adult (Primary Dx) from Last 3 Months Social History Tobacco Use Types Packs/Day Years Used Date Smoking Tobacco: Never Assessed Comments Unknown Sex and Gender Information Value Date Recorded Sex Assigned at Not on file Legal Sex Female 4:55 AM EST Gender Identity Not on file Sexual Orientation Not on file Last Filed Vital Signs Vital Sign Reading Time Taken Comments Blood Pressure 116/79 06/29/2024 3:58 PM EDT Pulse 84 06/29/2024 3:58 PM EDT Temperature 36.6 ??C (97.8 ??F) 06/29/2024 3:58 PM ED T Respiratory Rate - - Oxygen Saturation - - Inhaled Oxygen Concentration - - Weight 109 kg (241 lb) 06/29/2024 3:58 PM EDT Height 156.2 cm (5' 1.5 ) 06/29/2024 3:58 PM EDT Body Mass Index 44.8 06/29/2024 3:58 PM EDT Plan of Treatment Upcoming Encounters Date Type Department Care Team (Late st Contact Info) Description 08/19/2024 10:00 AM EDT Nutrition Bariatric Surgery - [place] [address] [address] Elisa Garduno, VIKTORIYA [address] [address] 10/28/2024 11:00 AM EDT Office Visit Bariatric Surgery - [address] [address] Reynaldo Deluca MD [address] [address] Health Maintenance Due Date Last Done Comments DTaP,Tdap,and Td Vaccines (1 - Tdap) 2009 Hepatitis A Vaccines (1 of 2 - Risk 2-dose series) 2009 Hepatitis B Vaccines (1 of 3 - 19+ 3-dose series) 2009 Cervical Cancer Screening: P ap Smear 11/13/2011 COVID-19 Vaccine (2 - 2023-2 5 season) 2023 07/08/2020 Cholesterol Screening (Lipid Panel) 06/21/2024 Depression Screening 06/21/2024 HIV Screening 06/21/2024 Hepatitis C Screening 06/21/2024 Social Influencers of Health Screening 06/21/2024 Influenza Vaccine (Season Ended) 2024 HIB Vaccines Aged Out No longer eligi ble based on patient's age to complete this topic HPV Vaccines Aged Out No longer eligi ble based on patient's age to complete this topic IPV Vaccines Aged Out No longer eligi ble based on patient's age to complete this topic MMR Vaccines Aged Out No longer eligi ble based on patient's age to complete this topic Meningococcal ACWY Vaccine Aged Out N o longer eligible based on patient's age to complete this topic Meningococcal B Vaccine Aged Out No l onger eligible based on patient's age to complete this topic Pneumococcal Vaccine: Pediat rics (0 to 5 Years) and At-Risk Patients (6 to 64 Years) Aged Out No longer eligi ble based on patient's age to complete this topic RSV Immunization Patients Un yelena 20 months Aged Out No longer eligible b ased on patient's age to complete this topic Varicella Vaccines Aged Out No longer eligible based on patient's age to complete this topic Insurance [facility] [employer] Care Teams Dowel Pin Worker Relationship Specialty Start Date End Date Gary Aceves MD [address] [place] [address] [address] [facility] [place] [address] PCP - General Internal Medicine 10/04/20
== END 2024-07-08 10:40 | disposition home or self-care (01) ==
PROVIDERS: PCP Internal Medicine; Visit Provider Physician Assistant
DX: J06.9 Acute upper respiratory infection, unspecified (principal)

== ENCOUNTER 2024-07-08 10:05 | Outpatient (REF) | payer OTHER, SELFPAY ==
--- OUTSIDE RECORDS SUMMARY | 2024-07-08 12:22 | XMS_ITS | Clinical Summary ---
Author Organization [address] [place] [address] [place] [phone] Phone Care Team Providers Care Rod Filler Name Role Phone Gary Aceves MD Primary Care Provider [phone] Allergies No known active allergies Medications phentermine [...] PM EDT Office Visit Bariatric Surgery - [address] [place] [address] Reynaldo Deluca MD Class 3 [...] 10:00 AM EDT Nutrition Bariatric Surgery - [facility] [address] [address] Elisa Garduno, VIKTORIYA [address] [address] 10/28/2024 11:00 AM EDT Office Visit Bariatric Surgery - [address] [address] Reynaldo Deluca MD [address] [address] Health Maintenance Due Date Last [...] patient's age to complete this topic Insurance [facility] [employer] Care Teams Rod Filler Relationship Specialty Start Date End Date Gary Aceves MD [address] [place] [address] [address] [facility] [place] [address] PCP - General Internal Medicine 10/04/20
== END 2024-07-08 10:06 | disposition home or self-care (01) ==
LOC: HO.LAB 10:05
PROVIDERS: PCP Internal Medicine
DX: J06.9 Acute upper respiratory infection, unspecified (principal); N39.0 Urinary tract infection, site not specified
CPT/HCPCS: 87086; 99212

== ENCOUNTER 2024-07-13 07:22 | Emergency (ER) | payer OTHER, SELFPAY ==
[2024-07-13 07:23] VITALS: BP 140/86; PULSE 68; RESP 20; TEMP 36.4; O2SAT 99; BMI 46.0
--- NOTE | 2024-07-13 08:08 | ED.FEMALEGU ---
HPI - Female Genitourinary General Chief complaint: Urogenital-Female Stated complaint: UTI? Time Seen by Provider: 07/13/24 08:01 Source: patient Mode of arrival: ambulatory Limitations: no limitations History of Present Illness ED Provider: Waleska Marino PA-C HPI Narrative: Patient is a 33 year old assigned female at with no reported medical history presenting to the emergency department today with continued painful urination. Patient states that yesterday she began having painful urination and was started on an antibiotic by her PCP however, her symptoms persist. Patient states that it has not gotten better at all with painful urination. Patient denies any vaginal lesions. Patient states that she is having pain with intercourse. Patient denies any dizziness, lightheadedness, abdominal pain, nausea, vomiting, fever, chills, blurry vision, double vision, loss of vision, chest pain, difficulty breathing, shortness of breath, back pain, night sweats, blood in her urine or stool, syncope or a near syncopal episode, recent trauma or falls, bowel incontinence, bladder incontinence, or any other complaints at this time. Related Data Home Medications ?Medication ?Instructions ?Recorded ?Confirmed phentermine 15 mg capsule 15 mg PO DAILY 07/08/24 Previous Rx's ?Medication ?Instructions ?Recorded ferrous sulfate 325 mg (65 mg 325 mg PO BID #60 tabs 04/08/24 iron) tablet nitrofurantoin 100 mg PO Q12H 7 days #14 caps 07/05/24 monohydrate/macrocrystals 100 mg capsule (Macrobid) cefuroxime axetil 500 mg tablet 500 mg PO Q12H #10 tabs 07/08/24 fluconazole 150 mg tablet 150 mg PO Q3D 2 doses #1 tab 07/13/24 metronidazole 500 mg tablet 500 mg PO BID 7 days #14 tabs 07/13/24 Allergies Allergy/AdvReac Type Severity Reaction Status Date / Time No Known Allergies Allergy Verified 07/13/24 07:27 Review of Systems Constitutional: Constitutional: Reports no additional constitutional complaints, Denies chills, Denies fever(s) and Denies night sweats Eyes: Eyes: Reports no additional eye complaints, Denies blurry vision, Denies change in vision, Denies diplopia, Denies eye discharge, Denies loss of vision and Denies eye pain ENT: Denies dizziness Cardiovascular: Cardiovascular: Reports no additional cardiovascular complaints, Denies chest pain, Denies lightheadedness, Denies Loss of Consciousness and Denies dyspnea Respiratory: Respiratory: Reports no additional respiratory complaints and Denies dyspnea Gastrointestinal: Gastrointestinal: Reports no additional gastrointestinal complaints, Denies abdominal pain, Denies melena, Denies hematochezia, Denies change in bowel habits and Denies change in stool character Genitourinary: Genitourinary: Denies hematuria, Denies urinary frequency, Reports dysuria, Denies urinary incontinence, Denies urinary hesitancy and Reports urinary urgency Musculoskeletal: Musculoskeletal: Reports no additional musculoskeletal complaints, Denies numbness and Denies tingling Neurologic: Denies dizziness, Denies loss of vision, Denies numbness and Denies tingling Psychiatric: Psychiatric: Reports no additional psychiatric complaints Endocrine: Endocrine: Reports no additional endocrine complaints Hematologic/Lymphatic: Hematologic/Lymphatic: Reports no additional hematologic/lymphatic complaints Allergic/Immunologic: Allergic/Immunologic: Reports no additional allergic/immunologic complaints PMFSH Past Medical History Attestation statement: The following information was validated with the patient. Source: old records reviewed and nursing notes reviewed Medical History Physical exam Morbid obesity Acute cholecystitis Gallstones Gallstone Surgical History Status post cholecystectomy History of laparoscopic cholecystectomy History of 3 sections History of tubal ligation Family History Family History Father HTN (hypertension) Diabetes Mother No problems noted. Maternal Grandfather Prostate cancer Sister No problems noted. Sister No problems noted. Sister No problems noted. Sister No problems noted. Sister No problems noted. Son No problems noted. Daughter No problems noted. Daughter No problems noted. Social History Social History Household Members: Children Housing: Apartment Do you presently have visiting nurse or other home services: No Alcohol intake: current Alcohol intake frequency: holidays/special occasions only Patient Tobacco Use Status: Never used Tobacco e-Cigarette/Vaping Use: Never Used Second Hand Smoke Exposure: No Substance Use Type: Marijuana Advance Directives: No Advance Directives Information Provided: No Do you have a plan to hurt others: No Plan service: No Current occupational status: student Cognitive needs: No Hearing needs: No Vision needs: No Physical Exam Vital Signs: Vital Signs: Last Vital Signs Temp 97.5 F 07/13/24 07:23 Pulse 68 07/13/24 07:23 Resp 20 07/13/24 07:23 BP 140/86 H 07/13/24 07:23 Pulse Ox 99 07/13/24 07:23 O2 Del Method Room Air 07/13/24 07:23 BMI result Body Mass Index 46.0 Const: General: cooperative, no acute distress, alert and awake Nutritional Appearance: well nourished Orientation/consciousness: patient oriented x3 Limitations: no limitations HEENT: Head: Yes normal to inspection and Yes atraumatic Ears: hearing grossly normal bilaterally and external ears normal General nose exam: Normal external nose present, no nasal discharge noted and no epistaxis Face and sinus: Yes normal facial exam, No abrasion and No laceration Mouth: Normal oral and palatal mucosa present, no drooling and no muffled voice Eyes: General: appearance normal, both eyes and all related structures Periorbital: periorbital findings normal Eyelids: Yes eyelids normal Conjunctivae: conjunctivae normal Pupils: Equal, round and reactive pupils present EOM: EOMs intact bilaterally Neck: Neck: Yes normal visual inspection, Yes full ROM and Yes no lymphadenopathy Chest: Chest palpation & inspection: normal inspection of the chest Resp: Effort & Inspection: normal respiratory effort and able to speak in complete sentences GI: Inspection: Yes normal to inspection : Other: patient deferred a vaginal exam. Neuro: General: patient oriented x3, moves all extremities and CN's II-XI intact bilaterally Cranial nerves: Yes Equal, round and reactive pupils present Cognition (Neuro): normal cognition Extrem: General: Yes normal to inspection, Yes full ROM and Yes capillary refill normal Psych: Appearance: grossly normal Mental Status: mental status grossly normal Affect: normal affect Attitude: cooperative Thought process: Normal thought process present Thought content: Normal thought content present Insight: Good insight present (Psych) Medical Decision Making Medical Decision Making MDM Narrative: Patient is a 33 year old assigned female at with no reported medical history presenting to the emergency department today with continued painful urination. Patient's physical exam was unremarkable. Patient's urine showed no acute process. Patient's CT/NG was negative. Patient's BV and yeast were positive. I explained my physical exam findings as well as all test results to the patient. I answered all questions asked by the patient. I stressed the importance of the patient taking her medication as directed (either prescribed or as the over the counter packaging recommends). I stressed the importance of the patient following up with her primary care provider. I stressed the importance of the patient returning to the emergency department immediately if her symptoms were to worsen or if she were to develop any dizziness, shortness of breath, difficulty breathing, chest pain, blurry vision, loss of vision, nausea, vomiting, abdominal pain, fever, chills, back pain, or any other complaints. Patient verbalized agreement and understanding with this treatment plan and discharge. Differential Diagnosis Differential Diagnoses: The differential diagnosis associated with the presentation includes BV Yeast UTI Admission/Observation Consideration of admission/observation: Escalation of care including admission/observation considered Patient would have been admitted to the hospital had her work up had any findings where hospital admission was appropriate and her clinical presentation warranted hospital admission. Lab Data [facility] Lab Attestation statement: I reviewed the patient's lab results. My interpretation of these results are in the [facility] Rationale portion of this note. Labs: Lab Results 07/13/24 07/13/24 Range/Units 08:14 08:52 Urine Color Yellow Urine Appearance Clear Urine pH 7.0 (5.0-9.0) Ur Specific [place] <= 1.005 (1.005-1.025) Urine Protein Negative (Neg-Trace) mg/dL Urine Glucose (UA) Negative (Negative) mg/dL Urine Ketones Negative (Negative) mg/dL Urine Blood Negative (Negative) Urine Nitrite Negative (Negative) Ur Leukocyte Esterase Negative (Negative) Chlam trachomat DNA PCR NOT DETECTED (Not Detect.) N.gonorrhoeae DNA (PCR) NOT DETECTED (Not Detect.) T. vaginalis (PCR) NOT DETECTED (Not Detect) Bact vaginosis (PCR) POSITIVE A (Negative) C. krusei/glabrata (PCR) DETECTED A (Not Detect) [place] group (PCR) DETECTED A (Not Detect) Prescription Management I considered prescription management with: Antibiotic (patient prescribed flagyl for BV) and Other (patient prescribed fluconazole for yeast) Discharge Plan Discharge Clinical Impression: Yeast infection, Bacterial vaginosis Patient Disposition: Home, Self-Care Instructions: Bacterial Vaginosis (ED), Yeast Infection (ED) Additional Instructions: Take your medication as prescribed. Follow up with your primary care provider. Return to the emergency department immediately if your symptoms worsen or if you develop any numbness, tingling, dizziness, shortness of breath, difficulty breathing, chest pain, blurry vision, loss of vision, nausea, vomiting, abdominal pain, fever, chills, back pain, or any other complaints. Please see the information below about our Patient Portal. If you are not yet enrolled in the [facility] Patient Portal, you will receive an enrollment email invitation following your visit to any [facility] setting. You may also self-enroll in the Patient Portal by visiting our website: [email or web address] The following information is required to access the Patient Portal: - Your [facility] Medical Record Number - Your personal home email address (must match what is in your electronic medical record, Registration staff can assist with this) - Name - Date of Capabilities of the Patient Portal: - Message some providers - View upcoming appointments - Access your health summary, medical history, and visit history - View current conditions and allergies - View procedure and lab results - View your medications, including guidelines, side effects, and precautions - Complete pre-appointment questionnaires requested by your provider - Ready summary reports of your office visits and procedures To access the Patient Portal Mobile [employer], follow these directions: - Search NavPrescience in the [employer] Store or AppLayer Store - Download the Barry - Search for [facility] - Enter your login/password Prescriptions: New fluconazole 150 mg tablet 150 mg PO Q3D Qty: 1 0RF metronidazole 500 mg tablet 500 mg PO BID 7 Days Qty: 14 0RF No Action ferrous sulfate 325 mg (65 mg iron) tablet 325 mg PO BID Qty: 60 2RF nitrofurantoin monohyd/m-cryst [Macrobid] 100 mg capsule 100 mg PO Q12H 7 Days Qty: 14 0RF Rx Instructions: must administer with a meal/food phentermine 15 mg capsule 15 mg PO DAILY cefuroxime axetil 500 mg tablet 500 mg PO Q12H Qty: 10 0RF Referrals: [facility] Family Medicine [Provider Group] (Call to establish and follow up with a primary care provider. If you already have a primary care provider, please follow up with them.) [facility] Primary Care, Edi [Provider Group] (Call to establish and follow up with a primary care provider. If you already have a primary care provider, please follow up with them.) [facility] Primary Care, Lucia [Provider Group] (Call to establish and follow up with a primary care provider. If you already have a primary care provider, please follow up with them.) [facility] Primary Care, QUIN [Provider Group] (Call to establish and follow up with a primary care provider. If you already have a primary care provider, please follow up with them.) [facility] Primary Care, Yusuf Snow [Provider Group] (Call to establish and follow up with a primary care provider. If you already have a primary care provider, please follow up with them.) Stand Alone Forms: Work/School Release Print Language: Urdu
--- OUTSIDE RECORDS SUMMARY | 2024-07-13 08:08 | XMS_ITS | Clinical Summary ---
Author Organization [address] [place] [address] [place] [phone] Phone Care Team Providers Care Carbide Operator Name Role Phone Gary Aceves MD Primary Care Provider [phone] Allergies No known active allergies Medications phentermine [...] PM EDT Office Visit Bariatric Surgery - [address] [place] [address] Reynaldo Deluca MD Class 3 [...] 10:00 AM EDT Nutrition Bariatric Surgery - [place] [address] [address] Elisa Garduno, VIKTORIYA [address] [address] 10/28/2024 11:00 AM EDT Office Visit Bariatric Surgery - [address] [address] Reynaldo Deluca MD [address] [address] Health Maintenance Due Date Last [...] patient's age to complete this topic Insurance [facility] [employer] Care Teams Carbide Operator Relationship Specialty Start Date End Date Gary Aceves MD [address] [place] [address] [address] [facility] [place] [address] PCP - General Internal Medicine 10/04/20
[2024-07-13 08:23] LABS: Appearance Urine Clear; Color Urine Yellow; Glucose Urine UA Negative (Negative); Leukocyte Esterase Urine Negative (Negative); Nitrite Urine Negative (Negative); Specific Gravity - Urine <= 1.005 (1.005-1.025); Urine Blood Negative (Negative); Urine Ketones Negative (Negative); Urine Protein Negative (Neg-Trace)
--- NOTE | 2024-07-13 08:42 | MHC.EDTECH ---
patient instructed on how to self swab.
[2024-07-13 09:57] LABS: Bacterial Vaginosis PCR POSITIVE (Negative); Candida Group PCR DETECTED (Not Detect); Candida glab krusei PCR DETECTED (Not Detect); Trichomonas vaginalis PCR NOT DETECTED (Not Detect)
[2024-07-13 10:27] LABS: CT PCR NOT DETECTED (Not Detect.); NG PCR NOT DETECTED (Not Detect.)
[2024-07-13 10:44] VITALS: BP 132/80; PULSE 70; RESP 16; TEMP 36.6; O2SAT 96
[2024-07-13 10:51] VITALS: BP 132/80; PULSE 70; RESP 16; TEMP 36.6; O2SAT 96
[2024-07-13] MEDS: metroNIDAZOLE 500 MG TABLET PO (10:55)
[2024-07-13] MEDS: Fluconazole 150 MG TABLET PO (10:55)
== END 2024-07-13 10:51 | disposition home or self-care (01) ==
PROVIDERS: Physician Assistant Medical; Emergency Provider Emergency Medicine
DX: B37.49 Other urogenital candidiasis (principal); N76.0 Acute vaginitis; B96.89 Other specified bacterial agents as the cause of diseases classified elsewhere
CPT/HCPCS: 81003; 81515; 87491; 87591; 99283

== ENCOUNTER 2024-08-11 21:14 | Emergency (ER) | payer OTHER, SELFPAY ==
[2024-08-11 21:34] VITALS: BP 116/59; PULSE 84; RESP 16; TEMP 36.7; O2SAT 97; BMI 44.9
[2024-08-11 21:54] LABS: Appearance Urine Clear; Color Urine Yellow; Glucose Urine UA Negative (Negative); Leukocyte Esterase Urine Negative (Negative); Nitrite Urine Negative (Negative); PH 6.5 (5.0-9.0); Urine Blood Negative (Negative); Urine Ketones Negative (Negative); Urine Protein Negative (Neg-Trace)
[2024-08-11 21:56] LABS: UPreg QC Valid YES; Urine Pregnancy NEGATIVE (NEGATIVE)
[2024-08-11 22:07] LABS: Bacteria Urine None Seen (None Seen); Hyaline Casts Urine 0-2 /LPF (0-2); RBC Urine 0-2 /HPF (0-2); Squamous Epithelial Cell Urine 0-2 /HPF (0-2); WBC Urine 0-5 /HPF (0-5)
--- NOTE | 2024-08-11 22:38 | ED_ITS ---
HPI - Female Genitourinary General Chief complaint: Urogenital-Female Stated complaint: UTI? Urination urgency Time Seen by Provider: 08/11/24 22:18 Source: patient Mode of arrival: ambulatory Limitations: no limitations History of Present Illness ED Provider: DR. Bush HPI Narrative: 33-year-old female came in for evaluation of frequency urination, no dysuria, no abdominal pain, no fever, no chills, no nausea, no vomiting, no back pain. Patient usually is prone to UTIs. Sexually active with 1 partner no risk for STI. Otherwise normal bowel movement, past surgical history is cholecystectomy. Related Data Home Medications ?Medication ?Instructions ?Recorded ?Confirmed phentermine 15 mg capsule 15 mg PO DAILY 07/08/24 Previous Rx's ?Medication ?Instructions ?Recorded ferrous sulfate 325 mg (65 mg 325 mg PO BID #60 tabs 04/08/24 iron) tablet nitrofurantoin 100 mg PO Q12H 7 days #14 caps 07/05/24 monohydrate/macrocrystals 100 mg capsule (Macrobid) cefuroxime axetil 500 mg tablet 500 mg PO Q12H #10 tabs 07/08/24 metronidazole 500 mg tablet 500 mg PO BID 7 days #14 tabs 07/13/24 fluconazole 150 mg tablet 150 mg PO ONCE 1 day #1 tab 07/14/24 Allergies Allergy/AdvReac Type Severity Reaction Status Date / Time No Known Allergies Allergy Verified 08/11/24 21:35 Review of Systems Review of Systems: Yes all other systems are reviewed and are negative PMFSH Past Medical History Medical History Physical exam Morbid obesity Acute cholecystitis Gallstones Gallstone Surgical History Status post cholecystectomy History of laparoscopic cholecystectomy History of 3 sections History of tubal ligation Family History Family History Father HTN (hypertension) Diabetes Mother No problems noted. Maternal Grandfather Prostate cancer Sister No problems noted. Sister No problems noted. Sister No problems noted. Sister No problems noted. Sister No problems noted. Son No problems noted. Daughter No problems noted. Daughter No problems noted. Social History Social History Household Members: Children Housing: Apartment Do you presently have visiting nurse or other home services: No Alcohol intake: current Alcohol intake frequency: holidays/special occasions only Patient Tobacco Use Status: Never used Tobacco Smoked in Last 30 Days: No e-Cigarette/Vaping Use: Never Used Second Hand Smoke Exposure: No Use of substances other than those prescribed or required for medical reasons: No Substance Use Type: Marijuana Advance Directives: No Advance Directives Information Provided: Yes Patient : No service: No Current occupational status: student Cognitive needs: No Hearing needs: No Vision needs: No Physical Exam Vital Signs: Vital Signs: Last Vital Signs Temp 98.0 F 08/11/24 21:34 Pulse 84 08/11/24 21:34 Resp 16 08/11/24 21:34 BP 116/59 L 08/11/24 21:34 Pulse Ox 97 08/11/24 21:34 O2 Del Method Room Air 08/11/24 21:34 BMI result Body Mass Index 44.9 Vital signs have been reviewed and appear to be correct. Blood pressure elevated. Heart rate normal. Respiratory rate normal. Temperature normal. Oxygen saturation normal. Appearance: Alert. Oriented X3. No acute distress. Head: Normal external exam. Normocephalic. Atraumatic. No Whiting signs noted. No raccoon eyes noted Eyes: PERRLA. EOMI. Conjunctiva and sclera normal. Eyelids normal. ENT: TM's Normal. Pharynx normal. Uvula midline. Moist mucous membranes. No trismus noted. No drooling noted. No muffled voice noted. Neck: Normal inspection. Neck supple. FROM. No adenopathy. Thyroid Normal. No meningeal signs. No neck mass noted. CVS: Normal heart rate and rhythm. Heart sound normal. No murmurs noted. Pulses normal throughout. Respiratory: No respiratory distress. Painless inspiration. Breath sounds normal. No wheezes/rales/rhonchi noted. Chest nontender. No accessory muscle usage noted or decreased air movement noted. Abdomen: Soft and nontender. Bowel sounds normal in all 4 quadrants. No distention noted. No organomegaly noted. No visible injury noted. Back: No CVA tenderness. Full range of motion noted. Skin: Skin warm and dry. Normal skin color. Normal skin turgor. No rashes/lesions/lacerations noted. Extremities: No lower extremity edema. Extremities exhibit normal range of motion. Extremities nontender. Neuro: Oriented X 3. Cranial nerve exam: II-XII are grossly intact No motor deficit. No sensory deficit. Reflexes normal. Course Reevaluation(s) Reevaluation #1: Here for frequency urination. UA is not indicating infection. Patient was instructed to drink plenty fluids and follow-up with PCP if symptoms persist. Time: 22:40 Medical Decision Making Differential Diagnosis Differential Diagnoses: The differential diagnosis associated with the presentation includes (UTI, pyelonephritis.) Admission/Observation Consideration of admission/observation: Escalation of care including admission/observation considered Lab Data MDM Lab Attestation statement: I reviewed the patient's lab results. Labs: Lab Results 08/11/24 Range/Units 21:48 Urine Color Yellow Urine Appearance Clear Urine pH 6.5 (5.0-9.0) Ur Specific [place] 1.010 (1.005-1.025) Urine Protein Negative (Neg-Trace) mg/dL Urine Glucose (UA) Negative (Negative) mg/dL Urine Ketones Negative (Negative) mg/dL Urine Blood Negative (Negative) Urine Nitrite Negative (Negative) Ur Leukocyte Esterase Negative (Negative) Urine RBC 0-2 (0-2) /HPF Urine WBC 0-5 (0-5) /HPF Ur Squamous Epith Cells 0-2 (0-2) /HPF Urine Bacteria None Seen (None Seen) Hyaline Casts 0-2 (0-2) /LPF Urine Test NEGATIVE (NEGATIVE) Discharge Plan Discharge Clinical Impression: Frequency of urination Patient Disposition: Home, Self-Care Instructions: Urinary Urgency and Frequency (DC) Prescriptions: No Action ferrous sulfate 325 mg (65 mg iron) tablet 325 mg PO BID Qty: 60 2RF nitrofurantoin monohyd/m-cryst [Macrobid] 100 mg capsule 100 mg PO Q12H 7 Days Qty: 14 0RF Rx Instructions: must administer with a meal/food fluconazole 150 mg tablet 150 mg PO ONCE 1 Days Qty: 1 0RF metronidazole 500 mg tablet 500 mg PO BID 7 Days Qty: 14 0RF phentermine 15 mg capsule 15 mg PO DAILY cefuroxime axetil 500 mg tablet 500 mg PO Q12H Qty: 10 0RF Print Language: English
[2024-08-11 23:48] VITALS: BP 115/72; PULSE 72; RESP 20; TEMP 36.1; O2SAT 98
== END 2024-08-11 23:50 | disposition home or self-care (01) ==
PROVIDERS: Emergency Provider Emergency Medicine
DX: R39.15 Urgency of urination (principal); Z79.899 Other long term (current) drug therapy
CPT/HCPCS: 81001; 81025; 99284

== ENCOUNTER 2024-09-21 11:20 | Outpatient (REF) | payer OTHER, SELFPAY ==
[2024-09-21 11:37] LABS: MANUAL DIFF FLAG NO
[2024-09-21 12:25] LABS: Basophils Percent Auto 0.4 % (0-2); Eosinophils Absolute Auto 0.2 X10*3/uL (0.0-0.4); Eosinophils Percent Auto 2.2 % (0-4); Hematocrit 38.3 % (37.0-47.0); Hemoglobin 12.7 g/dl (12.0-16.0); Imm Gran Abs Auto 0.03 X10*3/uL (0.00-0.03); Imm Gran Pct Auto 0.4 % (0.0-0.4); Lymphocytes Absolute Auto 1.8 X10*3/uL (1.2-4.9); Lymphocytes Percent Auto 21.6 % (20-40); Mean Corpuscular HGB Conc 33.2 g/dl (31.0-35.0); Mean Corpuscular Hemoglobin 26.2 pg (27.0-33.0); Mean Corpuscular Volume 79.1 fL (80.0-98.0); Mean Platelet Volume 10.8 fL (9.4-12.3); Monocytes Absolute Auto 0.5 X10*3/uL (0.1-1.2); Monocytes Percent Auto 5.3 % (2-11); Neutrophils Percent Auto 70.1 % (45-73); Platelet Count 343 X10*3/uL (160-400); Red Blood Count 4.84 X10*6/uL (4.20-5.50); Red Cell Distribution Width 14.9 % (11.0-16.0); White Blood Count 8.5 X10*3/uL (4.8-10.8)
--- OUTSIDE RECORDS SUMMARY | 2024-09-21 12:56 | XMS_ITS | Clinical Summary ---
Author Organization [address] [place] [address] Address [address] [place] [address] Phone Care Team Providers Care Waxer Floor Name Role Phone Gary Aceves MD Primary Care Provider [phone] Allergies No known active allergies Medications phentermine 37.5 mg capsule Take 1 capsule (37.5 mg total) by mouth 1 (one) time each day before breakfast. Max Daily Amount: 37.5 mg 30 each 5 025 Active phentermine 15 mg capsuleIndicati ons:Class 3 severe obesity due to excess calories without serious comorbidity with body mass index (BMI) of 40.0 to 44.9 in adult (CMS/HCC V24, CMS/HCC V28) Take 1 capsule (15 mg total) by mouth 1 (one) time each day before breakfast. Max Daily Amount: 15 mg 30 each 5 025 Discontinued Active Problems Problem Noted Date Diagnosed Date Class 3 severe obesity witho ut serious comorbidity with body mass index (BMI) of 40.0 to 44.9 in adult (CMS/HCC V24, CMS/HCC V28) 08/19/2024 Encounters Date Type Department Care Team Description 08/19/2024 10:00 AM EDT Nutrition Bariatric Surgery [address] [phone] Class 3 severe obesity without serious comorbidity with body mass index (BMI) of 40.0 to 44.9 in adult, unspecified obesity type (CMS/HCC V24, CMS/HCC V28) (Primary Dx) 08/04/2024 Telephone Bariatric Surgery [address] [phone] Reynaldo Deluca MD 07/23/2024 Telephone Bariatric Surgery - [place] [address] [phone] Reynaldo Deluca MD Med Refill (Phentermine) 06/29/2024 3:45 PM EDT Office Visit Bariatric Surgery [address] [phone] Reynaldo Deluca MD Class 3 severe obesity due to excess calories without serious comorbidity with body mass index (BMI) of 40.0 to 44.9 in adult (CMS/HCC V24, CMS/HCC V28) (Primary Dx) from Last 3 Months Social [...] 84 06/29/2024 3:58 PM EDT Temperature 36.6 C (97.8 F) 06/29/2024 3:58 PM EDT Respiratory Rate - - Oxygen Saturation - - Inhaled Oxygen Concentration - - Weight 106 kg (234 lb) 08/19/2024 10:01 AM EDT Height 156.2 cm (5' 1.5 ) 06/29/2024 3:58 PM EDT Body Mass Index 43.5 06/29/2024 3:58 PM EDT Plan of Treatment Upcoming Encounters Date Type Department Care Team (Late st Contact Info) Description 10/28/2024 11:00 AM EDT Office Visit Bariatric Surgery [address] [phone] Reynaldo Deluca MD [address] [id number] 11/19/2024 10:00 AM EDT Nutrition Bariatric Surgery - [address] [phone] Elisa Garduno, RD 175 [facility] [address] [place] [address] Health Maintenance Due Date Last Done Comments DTaP,Tdap,and Td Vaccines (1 - Tdap) 2009 Hepatitis A Vaccines (1 of 2 - Risk 2-dose series) 2009 Hepatitis B Vaccines (1 of 3 - 19+ 3-dose series) 2009 Cervical Cancer Screening: P ap Smear 11/13/2011 COVID-19 Vaccine (2 - 2023-2 5 season) 2023 07/08/2020 Depression Screening 06/21/2024 HIV Screening 06/21/2024 Hepatitis C Screening 06/21/2024 Social Influencers of Health Screening 06/21/2024 Influenza Vaccine (Season Ended) 2024 Cholesterol Screening (Lipid Panel) 08/04/2029 08/04/2024 HIB Vaccines Aged Out No longer eligi [...] on patient's age to complete this topic Procedures Procedure Name Priority Date/Time Associated Diagnosis Comments THYROID STIMULATING HORMONE Routine 08/04/2024 9:47 AM EDT Class 3 severe obesity due to excess calories without serious comorbidity with body mass index (BMI) of 40.0 to 44.9 in adult (CMS/[facility] V24, CMS/[facility]ER[facility] V28) HEPATIC FUNCTION PANEL Routine 08/04/2024 9:47 AM EDT Class 3 severe obesity due to excess calories without serious comorbidity with body mass index (BMI) of 40.0 to 44.9 in adult ([facility] V24, [facility] V28) HEMOGLOBIN A1C Routine 08/04/2024 9:47 AM EDT Class 3 severe obesity due to excess calories without serious comorbidity with body mass index (BMI) of 40.0 to 44.9 in adult ([facility] V24, [facility] V28) LIPID PANEL WITH REFLEX TO DIRECT LDL Routine 08/04/2024 9:47 AM EDT Class 3 severe obesity due to excess calories without serious comorbidity with body mass index (BMI) of 40.0 to 44.9 in adult ([facility] V24, [facility] V28) from Last 3 Months Results * (ABNORMAL) Lipid panel with reflex to direct LDL (08/04/2024 9:47 AM EDT) Cholesterol 169 0 - 200 mg/dL LAB CHEMISTRY METHOD 08/04/2024 1:[address] [facility] Triglycerides 69 0 - 150 mg/dL LAB CHEMISTRY METHOD 08/04/2024 1:[address] [facility] HDL 47 >=40 mg/dL LAB CHEMISTRY METHOD 08/04/2024 1:[address] [facility] LDL Calculated 108(H) 0 - 100 mg/dL LAB CHEMISTRY METHOD 08/04/2024 1:[address] [facility] VLDL Cholesterol Trey 13.8 mg/dL LAB CHEMISTRY METHOD 08/04/2024 1:[address] [facility] Non HDL Chol. (LDL+VLDL) 122 <145 mg/dL LAB CHEMISTRY METHOD 08/04/2024 1:[address] [facility] Chol/HDL Ratio 3.6 0.0 - 4.4 LAB CHEMISTRY METHOD 08/04/2024 1:54 PM EDT [facility] Blood Venous blood specimen / Unknown Venipuncture / Unknown 08/04/2024 9:47 AM EDT 08/04/2024 11:42 AM EDT us Reynaldo Deluca MD LAB BLOOD ORDERABLES Final R esult Performing Organization Address City/[facility]/ZIP Co de Phone Number [facility] [address] [place] [address], [place] [phone] * Thyroid stimulating hormone (08/04/2024 9:47 AM EDT) Pathologist [facility] TSH 0.72 0.40 - 4.00 mcIU/mL LAB CHEMISTRY METHOD 08/04/2024 3:01 PM EDT [facility] Blood Venous blood specimen / Unknown Venipuncture / Unknown 08/04/2024 9:47 AM EDT 08/04/2024 11:42 AM EDT us Reynaldo Deluca MD LAB BLOOD ORDERABLES Final R esult Performing Organization Address City/[facility]/ZIP Co de Phone Number [facility] [address] [place] [address], [place] [phone] * Hemoglobin A1c (08/04/2024 9:47 AM EDT) Pathologist [facility] Hemoglobin A1C 5.2 <6.5 % LAB CHEMISTRY METHOD 08/04/2024 2:35 PM EDT [facility] Mean Bld Glu Estim. 103 mg/dL LAB CHEMISTRY METHOD 08/04/2024 2:35 PM EDT [facility] Blood Venous blood specimen / Unknown Venipuncture / Unknown 08/04/2024 9:47 AM EDT 08/04/2024 11:46 AM EDT us Reynaldo Deluca MD LAB BLOOD ORDERABLES Final R esult [facility] [address] [place] [address], [place] [phone] * Hepatic function panel (08/04/2024 9:47 AM EDT) Total Protein 7.4 6.0 - 8.0 g/dL LAB CHEMISTRY METHOD 08/04/2024 1:54 PM EDT [facility] Albumin 3.5 3.2 - 5.0 g/dL LAB CHEMISTRY METHOD 08/04/2024 1:54 PM EDT [facility] Total Bilirubin 0.4 0.0 - 1.4 mg/dL LAB CHEMISTRY METHOD 08/04/2024 1:54 PM EDT [facility] Bilirubin, Direct 0.1 0.0 - 0.3 mg/dL LAB CHEMISTRY METHOD 08/04/2024 1:54 PM EDT [facility] Bilirubin, Indirect 0.3 0.0 - 1.1 mg/dL LAB CHEMISTRY METHOD 08/04/2024 1:54 PM EDT [facility] ALT (SGPT) 24 10 - 60 unit/L LAB CHEMISTRY METHOD 08/04/2024 1:54 PM EDT [facility] AST (SGOT) 15 10 - 42 unit/L LAB CHEMISTRY METHOD 08/04/2024 1:54 PM EDT [facility] Alkaline Phosphatase 103 42 - 121 unit/L LAB CHEMISTRY METHOD 08/04/2024 1:54 PM EDT [facility] Blood Venous blood specimen / Unknown Venipuncture / Unknown 08/04/2024 9:47 AM EDT 08/04/2024 11:42 AM EDT us Reynaldo Deluca MD LAB BLOOD ORDERABLES Final R esult [facility] [address] [place] [address], [place] [phone] from Last 3 Months Insurance [facility] [employer] Care Teams Waxer Floor Relationship Specialty Start Date End Date Gary Aceves MD [address] [place] [address] Dr Stephenson [address] [facility] [place] [address] PCP - General Internal Medicine 10/04/20
[2024-09-21 13:01] LABS: Alanine Aminotransferase 16 U/L (0-31); Alkaline Phosphatase 86 U/L (39-117); Anion Gap 10 (12-20); Aspartate Amino Transferase 15 U/L (5-31); Bilirubin Total 0.4 mg/dL (0.0-1.0); Blood Urea Nitrogen 8 mg/dL (9-16); Calcium 9.5 mg/dL (8.4-10.2); Carbon Dioxide 25 mmol/L (22-29); Chloride 108 mmol/L (96-108); Cholesterol 148 mg/dL (<200); Estimated Glomerular Filt Rate > 60; Glucose Fasting 89 mg/dL (60-99); HDL Cholesterol 45 mg/dL (>40); LDL Cholesterol Calculated 92 mg/dL (<100); Potassium 3.6 mmol/L (3.3-5.1); Sodium 139 mmol/L (135-145); Total Protein 7.3 g/dL (6.5-8.0); Triglycerides 59 mg/dL (<150)
[2024-09-21 13:11] LABS: Syphilis Screen Nonreactive (Nonreactive)
[2024-09-21 13:12] LABS: HIV AB/AG Nonreactive (Nonreactive); HIV Num 1 0.05 S/CO (0.00-0.99)
[2024-09-21 13:16] LABS: TSH reflex Free T4 0.62 uIU/mL (0.32-4.0); Vitamin D 25-OH Total 26.5 ng/mL (>30)
[2024-09-21 13:29] LABS: Folate 10.6 ng/mL (> or = 4.0); Vitamin B12 369 pg/mL (200-900)
[2024-09-25 09:44] LABS: Vitamin B1 7 nmol/L (8-30)
[2024-09-25 17:33] LABS: Vitamin A 33 mcg/dL (38-98)
[2024-09-29 06:13] LABS: Vitamin B6 4.9 ng/mL (2.1-21.7)
== END 2024-09-21 11:21 | disposition home or self-care (01) ==
LOC: HO.LAB 11:20
DX: Z00.00 Encounter for general adult medical examination without abnormal findings (principal); R10.2 Pelvic and perineal pain; R39.15 Urgency of urination; E66.01 Morbid (severe) obesity due to excess calories; E51.9 Thiamine deficiency, unspecified; E55.9 Vitamin D deficiency, unspecified; E50.9 Vitamin A deficiency, unspecified; E53.8 Deficiency of other specified B group vitamins; Z90.49 Acquired absence of other specified parts of digestive tract
CPT/HCPCS: 80053; 80061; 82306; 82607; 82746; 84207; 84425; 84443; 84590; 85025; 86780; 87389

== ENCOUNTER 2024-09-22 10:40 | Outpatient (REF) | payer OTHER, SELFPAY ==
[2024-09-22 10:52] LABS: Appearance Urine Clear; Color Urine Yellow; Glucose Urine UA Negative (Negative); Leukocyte Esterase Urine Negative (Negative); Nitrite Urine Negative (Negative); PH 6.5 (5.0-9.0); Urine Blood Negative (Negative); Urine Ketones Negative (Negative); Urine Protein Negative (Neg-Trace)
[2024-09-22 12:28] LABS: CT PCR NOT DETECTED (Not Detect.); NG PCR NOT DETECTED (Not Detect.)
== END 2024-09-22 10:41 | disposition home or self-care (01) ==
LOC: HO.LNP 10:40
DX: R10.2 Pelvic and perineal pain (principal); R39.15 Urgency of urination
CPT/HCPCS: 81003; 87491; 87591

== ENCOUNTER 2024-09-27 09:01 | Outpatient (AMB) | payer OTHER, SELFPAY ==
--- OUTSIDE RECORDS SUMMARY | 2024-09-27 09:17 | XMS_ITS | Encounter Summary ---
Author Organization [facility] Address [id number] [place] [phone] Care Team Providers Care Pressure Test Operator Name Role Phone Gary Aceves MD Primary Care Provider [phone] Reason for Visit * Reason Onset Date Comments Med Refill 09/22/2024 Phentermine 37.5 MG Encounter Details Date Type Department Care Team (Late Contact Info) Description 09/22/2024 Telephone Bariatric Surgery [facility] [address] [phone] Reynaldo Deluca MD [address] [phone] Med Refill (Phentermine 37.5 MG) Social History Tobacco Use Types Packs/Day Years Used Date Smoking Tobacco: Never Assessed Comments Unknown Sex and Gender Information Value Date Recorded Sex Assigned at Not on file Legal Sex Female 4:55 AM EST Gender Identity Not on file Sexual Orientation Not on file documented as of this encounter Progress Notes * Ricarda Lujan - 09/22/2024 10:12 AM EDT Patient requesting refill on phentermine 37.5 MG documented in this encounter Plan of Treatment Upcoming Encounters Date Type Department Care Team (Late Contact Info) Description 10/28/2024 11:00 AM EDT Office Visit Bariatric Surgery [facility] [address] [phone] Reynaldo Deluca MD [address] [address] 11/19/2024 10:00 AM EDT Nutrition Bariatric Surgery - [place] 175 [facility] [address] [place] [address] Elisa Garduno, RD 175 [facility] [address] [place] [address] documented as of this encounter Visit Diagnoses Not on filedocumented in this encounter Care Teams Pressure Test Operator Relationship Specialty Start Date End Date Gary Aceves MD [address] [place] [address] [address] [facility] [place] [place] [address] PCP - General Internal Medicine 10/04/20 documented as of this encounter
--- NOTE | 2024-09-27 09:41 | AM.OFFVISNUR ---
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 unit/0.1 mL intradermal injection solution Performing Provider: JAVI Bradford [facility] Administered by: Trini Lozano LPN on 09/27/24 09:41 Dose Route Admin Location Dispensed Lot Number Expiration Date [facility] Final Application Reviewer 0.1 mL intradermal left forearm 0.1 mL [id number] 04/29/27 32610-070-57 [employer] Total Dispensed Waste 0.1 mL 0 % Assessment & Plan Assessment & Plan Orders: Orders AMB PPD Planted Today Z11.1 - Encounter for screening for respiratory tuberculosis Coding
== END 2024-09-27 09:43 | disposition home or self-care (01) ==
LOC: HO.HMCH 09:01
DX: Z11.1 Encounter for screening for respiratory tuberculosis (principal)

== ENCOUNTER → 2024-09-27 09:01 | Outpatient (BNVA) | payer OTHER, SELFPAY | DX: Z11.1 Encounter for screening for respiratory tuberculosis (principal) | CPT/HCPCS: 86580 ==

== ENCOUNTER 2024-10-26 22:36 | Emergency (ER) | payer OTHER, SELFPAY ==
[2024-10-26 22:46] VITALS: BP 129/75; PULSE 80; RESP 18; TEMP 36.7; O2SAT 96; BMI 44.8
[2024-10-27 01:16] LABS: Appearance Urine Cloudy; Glucose Urine UA 100 mg/dL (Negative); PH 6.5 (5.0-9.0); Specific Gravity - Urine 1.010 (1.005-1.025); UMIC TRIGGER UACC YES
[2024-10-27 01:18] LABS: UPreg QC Valid YES
[2024-10-27 01:37] LABS: UACC Culture Trigger YES
[2024-10-27 02:00] VITALS: BP 118/83; PULSE 88; RESP 16; TEMP 36.8; O2SAT 96
--- NOTE | 2024-10-27 02:04 | ED_ITS ---
HPI - Female Genitourinary General Chief complaint: Urogenital-Female Stated complaint: ?UTI/Pelvic pain Time Seen by Provider: 10/27/24 01:47 Source: patient Limitations: no limitations History of Present Illness ED Provider: Carrie Del Rosario PA-C HPI Narrative: 33-year-old female presents with dysuria since earlier today. Denies back pain, abdominal pain, nausea, vomiting or fever. Related Data Home Medications ?Medication ?Instructions ?Recorded ?Confirmed phentermine 15 mg capsule 15 mg PO DAILY 07/08/24 Previous Rx's ?Medication ?Instructions ?Recorded ferrous sulfate 325 mg (65 mg 325 mg PO BID #60 tabs 0 04/08/24 iron) tablet nitrofurantoin 100 mg PO Q12H 7 days #14 ca ps 07/05/24 monohydrate/macrocrystals 100 mg capsule (Macrobid) cefuroxime axetil 500 mg tablet 500 mg PO Q12H #10 tab s 07/08/24 metronidazole 500 mg tablet 500 mg PO BID 7 days #14 t abs 07/13/24 fluconazole 150 mg tablet 150 mg PO ONCE 1 day #1 tab 07/14/24 cephalexin 500 mg capsule 500 mg PO Q12H #13 caps 09/30 phenazopyridine 200 mg tablet 200 mg PO TID PRN pain # 10 tabs 10/27/24 (Pyridium) Allergies Allergy/AdvReac Type Severity Reaction Status Date / Time No Known Allergies Allergy Verified 10/26/24 22:51 Review of Systems Review of Systems: Yes all other systems are reviewed and are negative Constitutional: Constitutional: Denies fatigue and Denies fever(s) Respiratory: Respiratory: Denies cough Gastrointestinal: Gastrointestinal: Denies abdominal pain, Denies nausea and Denies vomiting Genitourinary: Genitourinary: Denies hematuria, Reports dysuria, Denies pelvic pain, Denies flank pain and Denies vaginal discharge Musculoskeletal: Musculoskeletal: Denies back pain Endocrine: Endocrine: Denies fatigue [facility] Past Medical History Attestation statement: The following information was validated with the patient. Medical History Physical exam Morbid obesity Acute cholecystitis Gallstones Gallstone Surgical History Status post cholecystectomy History of laparoscopic cholecystectomy History of 3 sections History of tubal ligation Family History Family History Father HTN (hypertension) Diabetes Mother No problems noted. Maternal Grandfather Prostate cancer Sister No problems noted. Sister No problems noted. Sister No problems noted. Sister No problems noted. Sister No problems noted. Son No problems noted. Daughter No problems noted. Daughter No problems noted. Social History Social History Household Members: Children Housing: Apartment Do you presently have visiting nurse or other home services: No Alcohol intake: current Alcohol intake frequency: holidays/special occasions only Patient Tobacco Use Status: Never used Tobacco e-Cigarette/Vaping Use: Never Used Second Hand Smoke Exposure: No Substance Use Type: Marijuana Advance Directives: No service: No Current occupational status: student Cognitive needs: No Hearing needs: No Vision needs: No Physical Exam Vital Signs: Vital Signs: Last Vital Signs Temp 98.0 F 10/26/24 22:46 Pulse 80 10/26/24 22:46 Resp 18 10/26/24 22:46 BP 129/75 10/26/24 22:46 Pulse Ox 96 10/26/24 22:46 O2 Del Method Room Air 10/26/24 22:46 BMI result Body Mass Index 44.8 Const: Other: Alert Orientation/consciousness: patient oriented x3 Resp: Effort & Inspection: normal respiratory effort Cardio: Other: Normal peripheral perfusion : General: Yes no CVA tenderness Back/Spine/Pelvis: Back: no CVA tenderness Skin: Other: Warm dry no rash Neuro: General: patient oriented x3, gait normal, no focal motor deficits and CN's II-XI intact bilaterally Psych: Other: Cough Medical Decision Making Medical Decision Making MDM Narrative: 33-year-old female presents with dysuria since earlier today. Denies back pain, abdominal pain, nausea, vomiting or fever. No chronic issues History: Per patient I have considered the following differential diagnoses: Urinary tract infection, renal colic, pyelonephritis Plan: Patient here with dysuria, found to have a urinary tract infection. She has no back or abdominal pain to suggest renal colic versus pyelonephritis, and no associated vomiting or fever. We will treat with the Keflex and Pyridium I have independently reviewed the following tests: Labs: Urine infected not Lab Data Labs: Lab Results 10/27/24 10/27/24 Range/Units 00:53 00:54 Urine Color [place] Urine Appearance Cloudy Urine pH 6.5 (5.0-9.0) Ur Specific [place] 1.010 (1.005-1.025) Urine Protein 100 (2+) H (Neg-Trace) mg/dL Urine Glucose (UA) 100 H (Negative) mg/dL Urine Ketones Trace (Negative) mg/dL Urine Blood Small (1+) H (Negative) Urine Nitrite Positive H (Negative) Ur Leukocyte Esterase Moderate (2+) H (Negative) Urine RBC 6-10 H (0-2) /HPF Urine WBC 11-20 (0-5) /HPF Ur Squamous Epith Cells 0-2 (0-2) /HPF Calcium Oxalate Crystal Present Urine Bacteria None Seen (None Seen) Hyaline Casts 0-2 (0-2) /LPF Urine Test NEGATIVE (NEGATIVE) Discharge Plan Discharge Clinical Impression: Urinary tract infection Patient Disposition: Home, Self-Care Instructions: Urinary Tract Infection in Women (ED) Additional Instructions: You were found to have a urinary tract infection. See home care instructions. Use the cephalexin as directed. Use the Pyridium as needed for bladder pain. This medication will cause your urine to become fluorescent orange, it will resolve. Increase your fluid intake. Follow up with your primary care as needed. Prescriptions: New cephalexin 500 mg capsule 500 mg PO Q12H Qty: 13 0RF phenazopyridine [Pyridium] 200 mg tablet 200 mg PO TID PRN (Reason: pain) Qty: 10 0RF No Action ferrous sulfate 325 mg (65 mg iron) tablet 325 mg PO BID Qty: 60 2RF nitrofurantoin monohyd/m-cryst [Macrobid] 100 mg capsule 100 mg PO Q12H 7 Days Qty: 14 0RF Rx Instructions: must administer with a meal/food fluconazole 150 mg tablet 150 mg PO ONCE 1 Days Qty: 1 0RF metronidazole 500 mg tablet 500 mg PO BID 7 Days Qty: 14 0RF phentermine 15 mg capsule 15 mg PO DAILY cefuroxime axetil 500 mg tablet 500 mg PO Q12H Qty: 10 0RF Stand Alone Forms: Work/School Release Print Language: Kazakh
[2024-10-27 02:32] VITALS: BP 118/83; PULSE 88; RESP 16; TEMP 36.8; O2SAT 96
== END 2024-10-27 02:33 | disposition home or self-care (01) ==
PROVIDERS: Emergency Provider Emergency Medicine
DX: N39.0 Urinary tract infection, site not specified (principal); R30.0 Dysuria; F12.90 Cannabis use, unspecified, uncomplicated
CPT/HCPCS: 81001; 81025; 87086; 99283

== ENCOUNTER 2024-10-31 07:28 | Emergency (ER) | payer OTHER, SELFPAY ==
--- NOTE | ~2024-10-31 | US_ITS ---
CLINICAL HISTORY: abd pain US pelvis transabdominal and transvaginal Comparison: None provided Findings: Transvaginal scanning performed. Anteverted uterus is 9.5 cm length. Normal myometrium. No endometrial lesion, 6 mm thickness. Right ovary 2.1 x 2 x 1.8 cm. Left ovary 1.9 x 2 x 1.3 cm. Normal color Doppler of both ovaries. No free fluid. IMPRESSION: 1. Normal pelvic ultrasound This document has been electronically signed by: Aj Fung MD on 10/31/2024 10:44:40
--- NOTE | ~2024-10-31 | CT_ITS ---
CLINICAL HISTORY: lower abd pain CT abdomen and pelvis with contrast Comparison: 07/30/2023 07:37 PM EDT: CTSR: CT ABDOMEN PELVIS WITH IV CONTRAST (06:37 Findings: No consolidation or effusion. The patient is status post cholecystectomy. The liver is otherwise unremarkable. There is a small left renal cyst. The solid organs are otherwise unremarkable. No bowel obstruction, pneumoperitoneum, or pneumatosis. Pelvic contents unremarkable. Normal appendix. The bones are intact. IMPRESSION: No acute findings. This document has been electronically signed by: Aj Fung MD on 10/31/2024 10:48:00
--- NOTE | ~2024-10-31 | XR_ITS ---
CLINICAL HISTORY: lower back pain 3 views lumbar spine Comparison: None provided Findings: Normal alignment. No acute fractures or dislocation. No significant degenerative change. IMPRESSION: No acute findings. This document has been electronically signed by: Aj Fung MD on 10/31/2024 09:04:22
[2024-10-31 07:39] VITALS: BP 147/87; PULSE 71; RESP 18; TEMP 36.6; O2SAT 98; BMI 44.5
[2024-10-31 08:28] LABS: MANUAL DIFF FLAG NO
--- NOTE | 2024-10-31 08:28 | PC.NURSE ---
patient states she has been taking antibiotics for her uti as prescribed, continues to have lower back pain and urinary symptoms. xray taken, IV established, labs obtained and sent. call rodriguez within reach.
[2024-10-31 08:29] LABS: Hematocrit 37.1 % (37.0-47.0); Hemoglobin 12.3 g/dl (12.0-16.0); Imm Gran Abs Auto 0.06 X10*3/uL (0.00-0.03); Imm Gran Pct Auto 0.8 % (0.0-0.4); Lymphocytes Absolute Auto 2.2 X10*3/uL (1.2-4.9); Mean Corpuscular HGB Conc 33.2 g/dl (31.0-35.0); Mean Corpuscular Hemoglobin 26.0 pg (27.0-33.0); Mean Corpuscular Volume 78.4 fL (80.0-98.0); NRBC Abs Auto 0.000 X10*3/uL (0.0-0.012); NRBC Pct Auto 0.0 /100WBC (0.0-0.2); Platelet Count 376 X10*3/uL (160-400); Red Blood Count 4.73 X10*6/uL (4.20-5.50); White Blood Count 7.9 X10*3/uL (4.8-10.8)
[2024-10-31 08:31] LABS: Appearance Urine Clear; Glucose Urine UA Negative (Negative); PH 6.5 (5.0-9.0); Specific Gravity - Urine 1.010 (1.005-1.025); UMIC TRIGGER UACC YES
[2024-10-31 08:44] LABS: UACC Culture Trigger YES
[2024-10-31 08:58] LABS: Alanine Aminotransferase 19 U/L (0-31); Albumin Level 4.1 g/dL (3.5-5.0); Alkaline Phosphatase 104 U/L (39-117); Anion Gap 12 (12-20); Aspartate Amino Transferase 19 U/L (5-31); Blood Urea Nitrogen 7 mg/dL (9-16); Calcium 9.2 mg/dL (8.4-10.2); Carbon Dioxide 25 mmol/L (22-29); Chloride 109 mmol/L (96-108); Creatinine Clr Calc Pharmacy 147.0; Estimated Glomerular Filt Rate > 60; Potassium 3.3 mmol/L (3.3-5.1); Sodium 143 mmol/L (135-145); Total Protein 7.6 g/dL (6.5-8.0)
--- NOTE | 2024-10-31 09:24 | ED_ITS ---
HPI - Female Genitourinary General Chief complaint: Urogenital-Female Stated complaint: Uti days ago, meds not working? Time Seen by Provider: 10/31/24 07:44 History of Present Illness HPI Narrative: Patient is a 33-year-old female presents today with having lower abdominal pain. Status post cholecystectomy done many years ago been having UTI type symptoms was given Keflex about 5 days ago presents today with having increasing abdominal pain persistent. Worse over the lower abdomen. No vaginal discharge. Patient is from home. No fever no chills. Positive decreased appetite. Related Data Home Medications ?Medication ?Instructions ?Recorded ?Confirmed phentermine 15 mg capsule 15 mg PO DAILY 07/08/24 Previous Rx's ?Medication ?Instructions ?Recorded ferrous sulfate 325 mg (65 mg 325 mg PO BID #60 tabs 0 04/08/24 iron) tablet nitrofurantoin 100 mg PO Q12H 7 days #14 ca ps 07/05/24 monohydrate/macrocrystals 100 mg capsule (Macrobid) cefuroxime axetil 500 mg tablet 500 mg PO Q12H #10 tab s 07/08/24 metronidazole 500 mg tablet 500 mg PO BID 7 days #14 t abs 07/13/24 fluconazole 150 mg tablet 150 mg PO ONCE 1 day #1 tab 07/14/24 cephalexin 500 mg capsule 500 mg PO Q12H #13 caps 09/30 phenazopyridine 200 mg tablet 200 mg PO TID PRN pain # 10 tabs 10/27/24 (Pyridium) ibuprofen 400 mg tablet 400 mg PO Q6H PRN pain #20 t abs 10/31/24 Allergies Allergy/AdvReac Type Severity Reaction Status Date / Time No Known Allergies Allergy Verified 10/31/24 07:41 Review of Systems 2 Review of Systems: Positive abdominal pain Yes all other systems are reviewed and are negative PMFSH Past Medical History Medical History Physical exam Morbid obesity Acute cholecystitis Gallstones Gallstone Surgical History Status post cholecystectomy History of laparoscopic cholecystectomy History of 3 sections History of tubal ligation Family History Family History Father HTN (hypertension) Diabetes Mother No problems noted. Maternal Grandfather Prostate cancer Sister No problems noted. Sister No problems noted. Sister No problems noted. Sister No problems noted. Sister No problems noted. Son No problems noted. Daughter No problems noted. Daughter No problems noted. Social History Social History Household Members: Children Housing: Apartment Do you presently have visiting nurse or other home services: No Alcohol intake: current Alcohol intake frequency: holidays/special occasions only Patient Tobacco Use Status: Never used Tobacco e-Cigarette/Vaping Use: Never Used Second Hand Smoke Exposure: No Substance Use Type: Marijuana Advance Directives: No Advance Directives Information Provided: No Do you have a plan to hurt others: No Plan service: No Current occupational status: student Cognitive needs: No Hearing needs: No Vision needs: No Physical Exam 2 Exam: Exam: Appearance: Alert. Oriented X3. No acute distress. Eyes: Pupils equal, round and reactive to light. ENT: Pharynx normal. Neck: Normal inspection. Neck supple. No lymph nodes noted. No crepitus CVS: Normal heart rate and rhythm. Pulses normal. Normal S1 and S2 Respiratory: No respiratory distress. Breath sounds normal. No Wheezing. No rales Abdomen: Soft, positive lower abdominal tenderness no rebound or guarding Skin: Skin warm and dry. Normal skin color. Normal skin turgor. Extremities: No lower extremity edema. Neurovascular intact to all extremities. No Lacerations. No Rash Neuro: Oriented X 3. No motor deficit. No sensory deficit. Moving all extermities. No slurred speech Vital Signs: Vital Signs: Last Vital Signs Temp 97.8 F 10/31/24 10:19 Pulse 68 10/31/24 10:19 Resp 16 10/31/24 10:19 BP 130/72 10/31/24 10:19 Pulse Ox 96 10/31/24 10:19 O2 Del Method Room Air 10/31/24 10:19 BMI result Body Mass Index 44.5 Medications Administered Discontinued Medications Generic Name Dose Route Start Last Admin Trade Name Freq PRN Reason Stop Dose Admin Iohexol 100 ml 10/31/24 09:42 10/31/24 09:43 Iohexol 350 Mg/Ml 100 Ml Infus..Btl IV 10/31/24 09:43 85 ml ONCE ONE Administration Medical Decision Making Medical Decision Making [facility] Narrative: Patient is a 33-year-old female presents today with having abdominal pain worse over the low abdomen worse on the left side has a history of UTI was on antibiotics for 5 days patient was given Keflex at that time. No fever no chills. No vaginal discharge. Patient not sexually active with any male. Denies any fever patient from home test was negative no related issue ultrasound was done there is no evidence of any torsion CT scan of the abdomen pelvis showed no acute evidence of obstruction abscess perforation no evidence for appendicitis patient's white count is normal patient's electrolytes are normal no acute distress. Repeat abdominal exam is soft nontender will discharge patient home. Patient's urine showed positive nitrate but only trace trace leukocyte esterase with 0-5 white cells and no bacteria I do not believe this is a UTI. Patient is to follow-up on an outpatient basis. Differential Diagnosis Differential Diagnoses: The differential diagnosis associated with the presentation includes Abdominal pain, torsion, appendicitis, kidney stone, UTI, pyelonephritis, STD, related issue Admission/Observation Consideration of admission/observation: Escalation of care including admission/observation considered Lab Data [facility] Lab Attestation statement: I reviewed the patient's lab results. 10/31/24 08:23 10/31/24 08:23 Labs: Lab Results 10/31/24 Range/Units 08:23 WBC 7.9 (4.8-10.8) X10*3/uL RBC 4.73 (4.20-5.50) X10*6/uL Hgb 12.3 (12.0-16.0) g/dl Hct 37.1 (37.0-47.0) % MCV 78.4 L (80.0-98.0) fL MCH 26.0 L (27.0-33.0) pg MCHC 33.2 (31.0-35.0) g/dl RDW 14.0 (11.0-16.0) % Plt Count 376 (160-400) X10*3/uL MPV 9.6 (9.4-12.3) fL Immature Gran % (Auto) 0.8 H (0.0-0.4) % Neut % (Auto) 63.8 (45-73) % Lymph % (Auto) 28.0 (20-40) % Billings % (Auto) 4.6 (2-11) % Eos % (Auto) 2.3 (0-4) % Baso % (Auto) 0.5 (0-2) % Lymph # (Auto) 2.2 (1.2-4.9) X10*3/uL Billings # (Auto) 0.4 (0.1-1.2) X10*3/uL Eos # (Auto) 0.2 (0.0-0.4) X10*3/uL Baso # (Auto) 0.0 (0.0-0.2) X10*3/uL Abs Immat Gran (auto) 0.06 H (0.00-0.03) X10*3/uL Absolute Neuts (auto) 5.1 (2.0-8.3) x10*3/uL Absolute Nucleated RBC 0.000 (0.0-0.012) X10*3/uL Nucleated RBC % (auto) 0.0 (0.0-0.2) /100WBC Sodium 143 (135-145) mmol/L Potassium 3.3 (3.3-5.1) mmol/L Chloride 109 H (96-108) mmol/L Carbon Dioxide 25 (22-29) mmol/L Anion Gap 12 (12-20) BUN 7 L (9-16) mg/dL Creatinine 0.59 (0.5-1.4) mg/dL Estim Creat Clear Calc 147.0 Estimated GFR > 60 Random Glucose 110 (60-115) mg/dL Calcium 9.2 (8.4-10.2) mg/dL Total Bilirubin 0.3 (0.0-1.0) mg/dL AST 19 (5-31) U/L ALT 19 (0-31) U/L Alkaline Phosphatase 104 (39-117) U/L Total Protein 7.6 (6.5-8.0) g/dL Albumin 4.1 (3.5-5.0) g/dL Beta HCG, Quant < 2 mIU/mL Urine Color Dudley Urine Appearance Clear Urine pH 6.5 (5.0-9.0) Ur Specific Foster 1.010 (1.005-1.025) Urine Protein Negative (Neg-Trace) mg/dL Urine Glucose (UA) Negative (Negative) mg/dL Urine Ketones Negative (Negative) mg/dL Urine Blood Negative (Negative) Urine Nitrite Positive H (Negative) Ur Leukocyte Esterase Trace H (Negative) Urine RBC 0-2 (0-2) /HPF Urine WBC 0-5 (0-5) /HPF Ur Squamous Epith Cells 0-2 (0-2) /HPF Urine Bacteria None Seen (None Seen) Hyaline Casts 0-2 (0-2) /LPF Independent Interpretation I performed an independent interpretation of an: CT Scan (CT abdomen pelvis was grossly negative for obstruction abscess perforation) Radiology Impression Discussion of test interpretation with radiology: I have reviewed the radiologist's reading. External Record Review External record reviewed: Office record Previous culture record reviewed Discharge Plan Discharge Clinical Impression: Abdominal pain Patient Disposition: Home, Self-Care Instructions: Abdominal Pain (ED) Prescriptions: New ibuprofen 400 mg tablet 400 mg PO Q6H PRN (Reason: pain) Qty: 20 0RF No Action ferrous sulfate 325 mg (65 mg iron) tablet 325 mg PO BID Qty: 60 2RF nitrofurantoin monohyd/m-cryst [Macrobid] 100 mg capsule 100 mg PO Q12H 7 Days Qty: 14 0RF Rx Instructions: must administer with a meal/food fluconazole 150 mg tablet 150 mg PO ONCE 1 Days Qty: 1 0RF cephalexin 500 mg capsule 500 mg PO Q12H Qty: 13 0RF phenazopyridine [Pyridium] 200 mg tablet 200 mg PO TID PRN (Reason: pain) Qty: 10 0RF metronidazole 500 mg tablet 500 mg PO BID 7 Days Qty: 14 0RF phentermine 15 mg capsule 15 mg PO DAILY cefuroxime axetil 500 mg tablet 500 mg PO Q12H Qty: 10 0RF Referrals: Jett Tracey FNP-C [Primary Care Provider, Internal Medicine] - 11/03/24 Print Language: Macanese
[2024-10-31] MEDS: iohexoL 350 MG/ML 100 ML INFUS..BTL IV (09:43)
[2024-10-31 10:19] VITALS: BP 130/72; PULSE 68; RESP 16; TEMP 36.6; O2SAT 96
--- NOTE | 2024-10-31 11:05 | PC.NURSE ---
continues to endorse 8/10 pain, resting in room. awaiting imaging results
[2024-10-31 13:03] VITALS: BP 100/58; PULSE 66; RESP 16; TEMP 36.4; O2SAT 97
== END 2024-10-31 13:04 | disposition home or self-care (01) ==
PROVIDERS: Emergency Provider Emergency Medicine Emergency Medical Services
DX: R10.9 Unspecified abdominal pain (principal)
CPT/HCPCS: 36415; 72100; 74177; 76830; 76856; 80053; 81001; 84702; 85025; 87086; 93975; 99284; Q9967

== ENCOUNTER → 2024-10-31 08:10 | Outpatient (BNV) | payer OTHER, SELFPAY | PROVIDERS: Emergency Provider Emergency Medicine Emergency Medical Services; Visit Provider Radiology Diagnostic Radiology | DX: R10.2 Pelvic and perineal pain (principal); M54.50 Low back pain, unspecified | CPT/HCPCS: 72100; 74177; 76830; 76856 ==

== ENCOUNTER 2024-12-14 14:33 | Outpatient (AMB) | payer OTHER, SELFPAY ==
[2024-12-14 14:36] VITALS: BP 110/72; PULSE 84; TEMP 36.8; O2SAT 100; BMI 44.9
--- NOTE | 2024-12-14 14:36 | MHC.OFFWIV ---
Intake Vital Signs 12/14/24 14:36 Height 5 ft Weight 230 lb BMI 44.9 BP 110/72 Blood Pressure Location Lt brachial Position Sitting Pulse 84 Pulse Source Pulse Oximeter Temp 98.2 F Temp Source Oral Pulse Oximetry (%) 100 Oxygen Delivery Method Room Air Intake Visit Reasons: EP chest pain traveled to neck/back, headaches Intake Note: pt presents with sporadic chest pains center to the right radiating up to right neck and around to right mid back and also c/o migraines- reports GERD. Patient Tobacco Use Status: Never used Tobacco Allergies No Known Allergies Allergy (Verified 12/14/24 14:39) Do you need a note to return to daycare/school/sports/work: Yes (In need of a work note from Friday to current) Return to daycare/school/sports/work/other note: work HPI HPI Comments History of Present Illness Details History of Present Illness - The patient is a 34-year-old female presenting with migraines and chest pain. - Migraine: The patient reports frequent migraines causing her to miss work for the last 5 days, with associated sound and light sensitivity but no nausea or vomiting. - She has been using cold compresses and staying in a dark room for relief, and has tried Tylenol and ibuprofen without significant improvement. Has never tried sumatriptan or other migraine medication. Is well hydrated and tried caffeine. Has not seen an Neurologist. Resolved spontaneously. - Gastroesophageal reflux disease (GERD): The patient experiences frequent heartburn and chest pain, described as sharp and stabbing, radiating to the right chest and neck and back. Has been happening for the last few months. Denies sweating, nausea, vomiting, left arm pain, left arm numbness or tingling, left sided chest pain, abdominal pain, dizziness. - She has not been treating the heartburn with daily medications, has tried Tums with temporary relief. Physical Exam General: Cooperative, healthy appearing, comfortable, no acute distress and well developed Orientation: Patient oriented x3 Limitations: No limitations Head: Normal to inspection Ears: Hearing grossly normal bilaterally Nose: Normal External nose present Face and sinus: Normal facial exam Eyes: Appearance normal, both eyes and all related structures Neck: Normal visual inspection and Yes full ROM Respiratory: Normal respiratory effort and able to speak in complete sentences. Skin: No rashes or lesions noted Neuro: Patient oriented x3 Extremities: Normal to inspection [facility] Medical History Physical exam Morbid obesity Acute cholecystitis Gallstones Gallstone Surgical History Status post cholecystectomy History of laparoscopic cholecystectomy History of 3 sections History of tubal ligation Family History Father HTN (hypertension) Diabetes Mother No problems noted. Maternal Grandfather Prostate cancer Sister No problems noted. Sister No problems noted. Sister No problems noted. Sister No problems noted. Sister No problems noted. Son No problems noted. Daughter No problems noted. Daughter No problems noted. Social History Household Members: Children Housing: Apartment Do you presently have visiting nurse or other home services: No Alcohol intake: current Alcohol intake frequency: holidays/special occasions only Patient Tobacco Use Status: Never used Tobacco e-Cigarette/Vaping Use: Never Used Second Hand Smoke Exposure: No Substance Use Type: Marijuana service: No Current occupational status: student Cognitive needs: No Hearing needs: No Vision needs: No Female Reproductive History Menstrual Age of Menarche: 11 Review of Systems Const All systems reviewed & are unremarkable except as noted in HPI and below Physical Exam Vital Signs: Last Vital Signs Temp 98.2 F 12/14/24 14:36 Pulse 84 12/14/24 14:36 BP 110/72 12/14/24 14:36 Pulse Ox 100 12/14/24 14:36 Oxygen Delivery Method Room Air 12/14/24 14:36 BMI result Body Mass Index 44.9 Assessment & Plan Assessment & Plan (1) Migraines: Code(s): G43.909 - Migraine, unspecified, not intractable, without status migrainosus Qualifiers: Migraine type: unspecified Status migrainosus presence: without status migrainosus Intractability: not intractable Qualified Code(s): G43.909 - Migraine, unspecified, not intractable, without status migrainosus Plan: Plan Patient was informed and verbally consented to the use of an ambient scribe for clinic note documentation during this visit. Migraines - Prescribed sumatriptan to try for use at the onset of migraine symptoms, with instructions to take one at onset on aura/migraine and a 2nd tablet 2 hours later if needed, with a maximum of four tablets in 24 hours. - Recommended continuation of Tylenol and ibuprofen as needed, and advised on the use of Benadryl for additional relief. - Stay well hydrated, avoid triggers. - Follow up with PCP if no relief with Sumatriptan. (2) Chest pain due to GERD: Code(s): K21.9 - Gastro-esophageal reflux disease without esophagitis; R07.9 - Chest pain, unspecified Plan: Gastroesophageal Reflux Disease (Gerd) - Advised daily use of Pepcid, with a trial of omeprazole if symptoms persist. - Recommended lifestyle modifications including dietary changes and avoiding triggers. - Advised to monitor symptoms and seek emergency care if symptoms worsen or are accompanied by dizziness, nausea, or sweating, left arm pain, numbness or tingling. - Suggested follow-up with primary care provider if symptoms persist after treating GERD. Medications: New sumatriptan succinate take 1 tab at onset of headache; if no relief may repeat 1 tab after at least 2 hrs; max = 4 tabs/24 hr PO 7 tabs 0RF Coding Level of Care Code Est Pt Level 4 (47271) Diagnoses Migraine without status migrainosus, not intractable, unspecified migraine type G43.909 Migraine type: unspecified Status migrainosus presence: without status migrainosus Intractability: not intractable Chest pain due to GERD K21.9; R07.9
== END 2024-12-14 15:13 | disposition home or self-care (01) ==
PROVIDERS: Visit Provider Physician Assistant
DX: G43.909 Migraine, unspecified, not intractable, without status migrainosus (principal); K21.9 Gastro-esophageal reflux disease without esophagitis; R07.9 Chest pain, unspecified

== ENCOUNTER → 2024-12-14 14:33 | Outpatient (BNVA) | payer OTHER, SELFPAY | PROVIDERS: Visit Provider Physician Assistant | DX: G43.909 Migraine, unspecified, not intractable, without status migrainosus (principal); K21.9 Gastro-esophageal reflux disease without esophagitis; R07.9 Chest pain, unspecified | CPT/HCPCS: 99212 ==

== ENCOUNTER 2025-01-27 14:46 | Outpatient (AMB) | payer OTHER, SELFPAY ==
[2025-01-27 14:52] VITALS: BP 128/90; PULSE 82; TEMP 36.2; O2SAT 96; BMI 45.0
--- NOTE | 2025-01-27 14:52 | MHC.PC.OV ---
Vital Signs 01/27/25 14:52 Height 5 ft Weight 230 lb 4 oz BMI 45.0 BP 128/90 H Blood Pressure Location Lt brachial Position Sitting Pulse 82 Pulse Source Pulse Oximeter Temp 97.1 F Temp Source Temporal Artery Scan Pulse Oximetry (%) 96 Oxygen Delivery Method Room Air Intake Visit Reasons: left arm numbness and heaviness Allergies No Known Allergies Allergy (Verified 01/27/25 14:54) Medication List - Last Reconciled 01/27/25 by Brea Fair MD ferrous sulfate 325 mg PO BID ibuprofen 400 mg PO Q6H PRN omeprazole 40 mg PO DAILY phentermine 37.5 mg PO QAM phentermine 37.5 mg PO DAILY sumatriptan succinate take 1 tab at onset of headache; if no relief may repeat 1 tab after at least 2 hrs; max = 4 tabs/24 hr PO Tobacco use date assessed: 01/27/25 Dental Screening Dental Screen Date: 01/27/25 Did you have a dental visit in the last 12 months?: Yes Did you have a dental problem in the last 6 months where you did not have access to dental care?: No Was dental information given to patient?: Patient has dentist HPI HPI Comments History of Present Illness Details The patient is a 34-year-old female presenting with numbness and tingling in her hands and left arm. She reports experiencing numbness and tingling in her hands for the past month. Today, she woke up with her left arm feeling heavy, numb, and sleepy, with a tingling sensation extending from her upper arm down to her fingers. These symptoms have persisted throughout the day without improvement but are not painful. The patient has not taken any medication for these symptoms. 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 Recent routine lab work revealed low vitamin D and slightly low vitamin B1. Her current medications include omeprazole, phentermine, an iron supplement, and sumatriptan for migraines. She is also taking a vitamin B supplement daily. [facility] Medical History Physical exam Morbid obesity Acute cholecystitis Gallstones Gallstone Surgical History Status post cholecystectomy History of laparoscopic cholecystectomy History of 3 sections History of tubal ligation Family History Father HTN (hypertension) Diabetes Mother No problems noted. Maternal Grandfather Prostate cancer Sister No problems noted. Sister No problems noted. Sister No problems noted. Sister No problems noted. Sister No problems noted. Son No problems noted. Daughter No problems noted. Daughter No problems noted. Social History Household Members: Children Housing: Apartment Do you presently have visiting nurse or other home services: No Alcohol intake: current Alcohol intake frequency: holidays/special occasions only Patient Tobacco Use Status: Never used Tobacco e-Cigarette/Vaping Use: Never Used Second Hand Smoke Exposure: No Substance Use Type: Marijuana service: No Current occupational status: student Cognitive needs: No Hearing needs: No Vision needs: No Female Reproductive History Menstrual Age of Menarche: 11 Questionnaire PHQ-9 Over the last 2 weeks, how often have you been bothered by any of the following problems? 1. Little interest or pleasure in doing things: not at all 2. Feeling down, depressed, or hopeless: not at all 3. Trouble falling or staying asleep, or sleeping too much: not at all 4. Feeling tired or having little energy: not at all 5. Poor appetite or overeating: not at all 6. Feeling bad about yourself - or that you are a failure or have let yourself or your family down: not at all 7. Trouble concentrating on things, such as reading the newspaper or watching television: not at all 8. Moving or speaking so slowly that other people could have noticed. Or the opposite - being so fidgety or restless that you have been moving around a lot more than usual: not at all 9. Thoughts that you would be better off or of hurting yourself in some way: not at all Total score: 0 Source: Developed by Drs. Broderick Sam, Shanon Ken, Ramirez Kelly and colleagues, with an educational christy from [employer]. Thrive Questionnaire Date Thrive assessed: 01/21/25 I am a: Patient What is your living situation today?: I have a steady place to live Within the past 12 months, did the food you bought not last and you didn't have the money to get more?: Sometimes True Within the past 12 months, did you worry whether your food would run out before you got money to buy more?: Never true Do you have trouble paying for medicines?: No Do you have trouble getting transportation to medical appointments?: No Do you have trouble paying your heating and electricity bill?: No Do you have trouble taking care of your child, family member or friend?: No Do you have trouble with day-to-day activities such as bathing, preparing meals, shopping, managing finances, etc.?: No Are you currently unemployed and looking for a job?: No Are you interested in more education?: Yes Please select the resources that you would like help with: None Currently or been in a relationship where the following occur: No concerns reported THRIVE Score: 1 AUDIT C Alcohol Use Questionnaire (AUDIT-C) 1. How often do you have a drink containing alcohol?: Monthly or less 2. How many drinks containing alcohol do you have on a typical day when you are drinking?: 1 or 2 3. How often do you have six or more drinks on one occasion?: Never Total Score: 1 PADMINI-7 AMB Questionnaire PADMINI-7 Date PADMINI - 7 assessed: 04/15/24 Feeling nervous, anxious, or on edge: 0 = Not at all Not being able to stop or control worryin = Not at all Worrying too much about different things: 0 = Not at all Trouble relaxin = Not at all Being so restless that it is hard to sit still: 0 = Not at all Becoming easily annoyed or irritable: 0 = Not at all Feeling afraid as if something awful might happen: 0 = Not at all Total PADMINI-7 score (0-4 normal; 5-9 mild; 10-14 moderate; 15-21 severe): 0 Source: Developed by Drs. Broderick Sam, Shanon Ken, Ramirez Kelly and colleagues, with an educational christy from [employer]. Review of Systems Const Details: As per HPI. Physical exam (Primary Care) Vital Signs: Last Vital Signs Temp 97.1 F 01/27/25 14:52 Pulse 82 01/27/25 14:52 BP 128/90 H 01/27/25 14:52 Pulse Ox 96 01/27/25 14:52 Oxygen Delivery Method Room Air 01/27/25 14:52 BMI result Body Mass Index 45.0 Tobacco/Smoking Status: Tobacco use Status Tobacco use date assessed 01/27/25 01/27/25 14:56 Patient Tobacco Use Status Never used Tobacco 01/27/25 14:56 e-Cigarette/Vaping Use Never Used 01/27/25 14:56 PHQ-9: PHQ-9 Score PHQ-9: Total score 0 01/27/25 14:56 Thrive Assessment: Date of Thrive Assessment Date Thrive assessed 01/21/25 01/27/25 14:56 Currently or been in a relationship where the following occur: No concerns reported Const Other: Pertinent findings are in BOLD GENERAL APPEARANCE NAD, activity normal for age, well developed/ well nourished, no cyanosis, pallor, or diaphoresis. EYES lids/conjunctiva normal. EARS/NOSE/THROAT Mucous membranes moist, nares normal, lips/teeth normal uvula midline without oral pharyngeal erythema, exudate or swelling TMs normal bilaterally. No lymphangitis/lymphedema. HEAD/NECK normocephalic atraumatic, no facial trauma, neck is supple. RESPIRATORY respiratory effort normal, speaks in full sentences, no tripod position, no accessory muscle use. Lungs clear to auscultation without rhonchi, wheezes, rales CARDIAC Regular rate and rhythm, no edema. ABDOMINAL Soft, ND/NT. No evidence of fluid wave. No pulsatile masses on exam, rebound tenderness, Burrows sign or pain over Mcburney's point. MUSCLES/EXTREMITIES No abnormal range of motion, no swelling. SKIN Warm, pink and dry. No rashes, dermatoses, petechiae or lesions. NEUROLOGICAL Speech is clear and appropriate. Normal level of consciousness. Gait and coordination are normal. 5/5 strength in all extremities. Tinnel and phalen tests negative. Numbness induced upon palpation of the left elbow. PSYCH Normal mood and affect. Judgement/competence is appropriate Coding Level of Care Code Est Pt Level 4 (43835) Diagnoses Numbness and tingling in left arm R20.0; R20.2 Vitamin D deficiency E55.9 Time Spent (min) 30 Assessment & Plan Assessment & Plan (1) Numbness and tingling in left arm: Code(s): R20.0 - Anesthesia of skin; R20.2 - Paresthesia of skin Category: Medical Plan: - An EMG will be ordered on an urgent basis for the left arm to evaluate for nerve compression. - A referral will be made to neurology. - The patient will follow up with her primary care provider, on February 15. Asked the patient to discuss with Jett regarding EMG results, neuro consult and in case her symptoms persist (2) Vitamin D deficiency: Code(s): E55.9 - Vitamin D deficiency, unspecified Category: Medical Plan: - Recommended starting vit D. Prescribed. Advised the paitent that he can get it OTC vs prescription (wichever is cheaper). Plan I have discussed with the patient the plan to investigate her symptoms of numbness and tingling. I explained that an EMG will be ordered to check for any nerve compression, and a referral will be made to neurology for further evaluation. We also reviewed her recent labs, noting her low vitamin D, and I advised her to begin supplementation, which can be obtained over the counter. The patient was advised to follow up with her PCP, at her upcoming appointment, and I will document our encounter in her chart for his kind review. Orders: Orders NE electromyogram (EMG) Today R20.0 - Anesthesia of skin, R20.2 - Paresthesia of skin Referrals Neurology Referral R20.0 - Anesthesia of skin, R20.2 - Paresthesia of skin Medications: New calcium carbonate-vitamin D3 500 mg-10 mcg (400 unit) (Oyster Shell Calcium-Vitamin D3) 1 tab PO DAILY 90 tabs 3RF
--- OUTSIDE RECORDS SUMMARY | 2025-01-27 17:42 | XMS_ITS | Clinical Summary ---
Author Organization [address] [place] [address] Address [address] [place] [address] Phone Care Team Providers Care Expanded Duty Dental Assistant Name Role Phone Gary Aceves MD Primary Care Provider [phone] Allergies No known active allergies Medications phentermine 37.5 mg capsuleIndicatio ns:Class 3 severe obesity without serious comorbidity with body mass index (BMI) of 40.0 to 44.9 in adult, unspecified obesity type (CMS/HCC V24, CMS/HCC V28) Take 1 capsule (37.5 mg total) by mouth 1 (one) time each day before breakfast. Max Daily Amount: 37.5 mg 30 each 2 12/27/2024 03/27/20 25 Active Active Problems Problem Noted Date Diagnosed Date Class 3 severe obesity witho ut serious comorbidity with body mass index (BMI) of 40.0 to 44.9 in adult (CMS/HCC V24, CMS/HCC V28) 08/19/2024 Cholelithiasis 10/06/2020 Overview (12/27/2024): Seen on GB US performed at [facility] on 10/04/20 (without acute cholecystitis). Fatty liver 10/06/2020 Overview (12/27/2024): Seen on GB US performed at [facility] on 10/04/20. Encounters Date Type Department Care Team Description 01/12/2025 12:30 PM EDT Nutrition Bariatric Surgery - [address] [phone] Class 3 severe obesity with serious comorbidity and body mass index (BMI) of 40.0 to 44.9 in adult, unspecified obesity type (CMS/HCC V24, CMS/HCC V28) (Primary Dx) 12/27/2024 1:15 PM EDT Office Visit Bariatric Surgery [address] [phone] Reynaldo Deluca MD Class 3 severe obesity without serious comorbidity with body mass index (BMI) of 40.0 to 44.9 in adult, unspecified obesity type (CMS/HCC V24, CMS/HCC V28) (Primary Dx) 12/07/2024 Telephone Bariatric Surgery [address] [phone] Reynaldo Deluca MD from Last 3 Months Social History Tobacco Use Types Packs/Day Years Used Date Smoking Tobacco: Never Assessed Comments Unknown Sex and Gender Information Value Date Recorded Sex Assigned at Not on file Legal Sex Female 4:55 AM EST Gender Identity Not on file Sexual Orientation Not on file Last Filed Vital Signs Vital Sign Reading Time Taken Comments Blood Pressure 130/83 12/27/2024 1:18 PM EDT Pulse 75 12/27/2024 1:18 PM EDT Temperature 36.6 C (97.8 F) 12/27/2024 1:18 PM EDT Respiratory Rate - - Oxygen Saturation - - Inhaled Oxygen Concentration - - Weight 105 kg (232 lb) 01/12/2025 12:31 PM EDT Height 156.2 cm (5' 1.5 ) 12/27/2024 1:18 PM EDT Body Mass Index 43.13 12/27/2024 1:18 PM EDT Plan of Treatment Upcoming Encounters Date Type Department Care Team (Late st Contact Info) Description 03/01/2025 2:30 PM EST Office Visit Bariatric Surgery [address] [phone] Reynaldo Deluca MD [address] [place] [phone] 05/16/2025 1:00 PM EST Nutrition Bariatric Surgery - [address] [phone] AllieLexxKaela Leisa, RD [address] [facility] [address] [place] [address] Health Maintenance Due Date Last Done Comments DTaP,Tdap,and Td Vaccines (1 - Tdap) 2009 Cervical Cancer Screening: P ap Smear 11/13/2011 HPV Vaccines (1 - 3-dose SCD M series) 2017 Depression Screening 03/31/2024 HIV Screening 06/21/2024 Hepatitis C Screening 06/21/2024 Social Influencers of Health Screening 06/21/2024 Hepatitis B Vaccines (2 of 2 - CpG 2-dose series) 01/31/2025 01/03/2025 Cholesterol Screening (Lipid Panel) 08/04/2029 08/04/2024 RSV Immunization Adult Patients (1 - 1-dose 75+ series) 2065 COVID-19 Vaccine Completed 01/03/2025, 07/08/2020 Influenza Vaccine Completed 01/03/2025 HIB Vaccines Aged Out No longer eligi ble based on patient's age to complete this topic Hepatitis A Vaccines Aged Out No long er eligible based on patient's age to complete [...] age to complete this topic Pneumococcal Vaccine: Pediatrics (0 to 5 Years) and At-Risk Patients (6 to 49 Years) Aged Out No longer eligible b ased on patient's age to complete this topic RSV Immunization Patients Under 20 months Aged Out No longer eligible b ased on patient's age to complete this topic Varicella Vaccines Aged Out No longer eligible based on patient's age to complete this topic Procedures Procedure Name Priority Date/Time Associated Diagnosis Comments LIPID PANEL WITH REFLEX TO DIRECT LDL Routine 08/04/2024 9:47 AM EDT Class 3 severe obesity due to excess calories without serious comorbidity with body mass index (BMI) of 40.0 to 44.9 in adult (CMS/HCC V24, CMS/HCC V28) from Last 3 Months or Most Recently Relevant to Health Maintenance Results * (ABNORMAL) Lipid panel with reflex to direct LDL (08/04/2024 9:47 AM EDT) Cholesterol 169 0 - 200 mg/dL LAB CHEMISTRY METHOD 08/04/2024 1:54 PM EDT [facility] Triglycerides 69 0 - 150 mg/dL LAB CHEMISTRY METHOD 08/04/2024 1:54 PM EDT [facility] HDL 47 >=40 mg/dL LAB CHEMISTRY METHOD 08/04/2024 1:54 PM EDT [facility] LDL Calculated 108(H) 0 - 100 mg/dL LAB CHEMISTRY METHOD 08/04/2024 1:54 PM EDT [facility] VLDL Cholesterol Trey 13.8 mg/dL LAB CHEMISTRY METHOD 08/04/2024 1:54 PM EDT [facility] Non HDL Chol. (LDL+VLDL) 122 <145 mg/dL LAB CHEMISTRY METHOD 08/04/2024 1:54 PM EDT [facility] Chol/HDL Ratio 3.6 0.0 - 4.4 LAB CHEMISTRY METHOD 08/04/2024 1:54 PM EDT [facility] Blood Venous blood specimen / Unknown Venipuncture / Unknown 08/04/2024 9:47 AM EDT 08/04/2024 11:42 AM EDT us Reynaldo Deluca MD LAB BLOOD ORDERABLES Final R esult [facility] [address] [place] [address], [place] [phone] from Last 3 Months or Most Recently Relevant to Health Maintenance Insurance [facility] Care Teams Expanded Duty Dental Assistant Relationship Specialty Start Date End Date Gary Aceves MD [address] [place] [address] Dr [address] [facility] [place], [place] [phone] PCP - General Internal Medicine 10/04/20
== END 2025-01-27 15:09 | disposition home or self-care (01) ==
LOC: HO.HMCH 14:47
PROVIDERS: Visit Provider Internal Medicine
DX: R20.0 Anesthesia of skin (principal); R20.2 Paresthesia of skin; E55.9 Vitamin D deficiency, unspecified

== ENCOUNTER → 2025-01-27 14:46 | Outpatient (BNVA) | payer OTHER, SELFPAY | PROVIDERS: Visit Provider Internal Medicine | DX: R20.0 Anesthesia of skin (principal); R20.2 Paresthesia of skin; E55.9 Vitamin D deficiency, unspecified | CPT/HCPCS: 99212 ==

== ENCOUNTER 2025-02-01 10:17 | Outpatient (AMB) | payer OTHER, SELFPAY ==
--- NOTE | 2025-02-01 10:22 | MHC.OFFWIV ---
Intake Vital Signs 02/01/25 10:24 Height 5 ft Weight 230 lb BMI 44.9 BP 134/92 H Blood Pressure Location Rt brachial Position Sitting Pulse 67 Pulse Source Pulse Oximeter Temp 98.2 F Temp Source Oral Pulse Oximetry (%) 97 Oxygen Delivery Method Room Air Intake Visit Reasons: EP Possible infection on insect bite Intake Note: pt presents with irritated lesion under chin- lesion is painful and itchy lesion x2, also with headaches (Sumatriptan unhelpful). tingling and numbness of hands (neurology appt 06/2025) Patient Tobacco Use Status: Never used Tobacco Allergies No Known Allergies Allergy (Verified 02/01/25 10:32) Medication List - Last Reconciled 02/01/25 by Madan Brothers MD calcium carbonate-vitamin D3 500 mg-10 mcg (400 unit) (Oyster Shell Calcium-Vitamin D3) 1 tab PO DAILY ferrous sulfate 325 mg PO BID ibuprofen 400 mg PO Q6H PRN omeprazole 40 mg PO DAILY phentermine 37.5 mg PO QAM sumatriptan succinate take 1 tab at onset of headache; if no relief may repeat 1 tab after at least 2 hrs; max = 4 tabs/24 hr PO thiamine HCl (vitamin B1) 100 mg PO DAILY Do you need a note to return to daycare/school/sports/work: Yes HPI EP Possible infection on insect bite HPI Details History of Present Illness The patient is a 34-year-old female presenting with migraines, bilateral hand paresthesia, and an infected insect bite. Migraine: - The patient reports having a lot of migraines. - She notes that her current medication, sumatriptan, is not working. Carpal Tunnel Syndrome: - The patient has experienced tingling and numbness in both hands for the past month, which was not present before. - Symptoms persist throughout the day and are present upon waking in the morning. - Her hands also go numb while driving. - She has been referred to a neurologist but the earliest appointment available is in June of next year. Infected Insect Bite: - The patient reports an insect bite that she initially thought was a pimple two days ago. - The area subsequently became swollen, itchy, and painful. - She also reports that the lesion was purulent earlier. Problem List - Migraine - Carpal Tunnel Syndrome - Infected insect bite Plan - A diagnosis of carpal tunnel syndrome was made for the bilateral hand tingling and numbness. - The patient will be provided with bilateral splints to wear at night. - An oral antibiotic tablet will be prescribed for the infected insect bite. - It was suggested that the migraines might be triggered by the infection and could improve with the antibiotic. - Prescriptions will be sent to the pharmacy. - Recommended follow-up with her primary care doctor for further management. 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 Maternal Grandfather Prostate cancer Sister No problems noted. Sister No problems noted. Sister No problems noted. Sister No problems noted. Sister No problems noted. Son No problems noted. Daughter No problems noted. Daughter No problems noted. Social History Household Members: Children Housing: Apartment Do you presently have visiting nurse or other home services: No Alcohol intake: current Alcohol intake frequency: holidays/special occasions only Patient Tobacco Use Status: Never used Tobacco e-Cigarette/Vaping Use: Never Used Second Hand Smoke Exposure: No Substance Use Type: Marijuana service: No Current occupational status: student Cognitive needs: No Hearing needs: No Vision needs: No Female Reproductive History Menstrual Age of Menarche: 11 Physical Exam Vital Signs: Last Vital Signs Temp 98.2 F 02/01/25 10:24 Pulse 67 02/01/25 10:24 BP 134/92 H 02/01/25 10:24 Pulse Ox 97 02/01/25 10:24 Oxygen Delivery Method Room Air 02/01/25 10:24 BMI result Body Mass Index 44.9 Assessment & Plan Assessment & Plan (1) Cellulitis of face: Code(s): L03.211 - Cellulitis of face (2) Carpal tunnel syndrome, bilateral: Code(s): G56.03 - Carpal tunnel syndrome, bilateral upper limbs (3) Migraines: Code(s): G43.909 - Migraine, unspecified, not intractable, without status migrainosus Qualifiers: Migraine type: unspecified Status migrainosus presence: without status migrainosus Intractability: not intractable Qualified Code(s): G43.909 - Migraine, unspecified, not intractable, without status migrainosus Plan Migraine: - The patient reports having a lot of migraines. - She notes that her current medication, sumatriptan, is not working. Carpal Tunnel Syndrome: - The patient has experienced tingling and numbness in both hands for the past month, which was not present before. - Symptoms persist throughout the day and are present upon waking in the morning. - Her hands also go numb while driving. - She has been referred to a neurologist but the earliest appointment available is in June of next year. Infected Insect Bite: - The patient reports an insect bite that she initially thought was a pimple two days ago. - The area subsequently became swollen, itchy, and painful. - She also reports that the lesion was purulent earlier. Problem List - Migraine - Carpal Tunnel Syndrome - Infected insect bite Plan - A diagnosis of carpal tunnel syndrome was made for the bilateral hand tingling and numbness. - The patient will be provided with bilateral splints to wear at night. - An oral antibiotic tablet will be prescribed for the infected insect bite. - It was suggested that the migraines might be triggered by the infection and could improve with the antibiotic. - Prescriptions will be sent to the pharmacy. - Recommended follow-up with her primary care doctor for further management. Medications: New doxycycline monohydrate 100 mg PO BID 14 caps 0RF chin infection 7 days Coding Level of Care Code Est Pt Level 4 (24262) Diagnoses Cellulitis of face L03.211 Carpal tunnel syndrome, bilateral G56.03 Migraine without status migrainosus, not intractable, unspecified migraine type G43.909 Migraine type: unspecified Status migrainosus presence: without status migrainosus Intractability: not intractable
[2025-02-01 10:24] VITALS: BP 134/92; PULSE 67; TEMP 36.8; O2SAT 97; BMI 44.9
== END 2025-02-01 10:56 | disposition home or self-care (01) ==
PROVIDERS: Visit Provider Internal Medicine
DX: L03.211 Cellulitis of face (principal); G56.03 Carpal tunnel syndrome, bilateral upper limbs; G43.909 Migraine, unspecified, not intractable, without status migrainosus

== ENCOUNTER → 2025-02-01 10:17 | Outpatient (BNVA) | payer OTHER, SELFPAY | PROVIDERS: Visit Provider Internal Medicine | DX: L03.211 Cellulitis of face (principal); G43.909 Migraine, unspecified, not intractable, without status migrainosus; G56.03 Carpal tunnel syndrome, bilateral upper limbs; W57.XXXA Bitten or stung by nonvenomous insect and other nonvenomous arthropods, initial encounter; Y93.9 Activity, unspecified; Y92.9 Unspecified place or not applicable; Y99.9 Unspecified external cause status | CPT/HCPCS: 99212 ==

== ENCOUNTER 2025-02-16 11:21 | Outpatient (AMB) | payer OTHER, SELFPAY ==
--- NOTE | 2025-02-16 11:25 | A.OFFPC_ITS ---
Vital Signs 02/16/25 11:26 Height 5 ft Weight 229 lb BMI 44.7 BP 120/60 Blood Pressure Location Lt brachial Position Sitting Respiration 18 Pulse 84 Pulse Source Pulse Oximeter Temp Source Temporal Artery Scan Pulse Oximetry (%) 98 Oxygen Delivery Method Room Air Intake Visit Reasons: GERRI Dr Gamble /Headaches Access Rep Required: No Accompanied by: Self / Same As Patient Allergies No Known Allergies Allergy (Verified 02/16/25 11:39) Medication List - Last Reconciled 02/16/25 by JAVI Bradford calcium carbonate-vitamin D3 500 mg-10 mcg (400 unit) (Oyster Shell Calcium- Vitamin D3) 1 tab PO DAILY ferrous sulfate 325 mg PO BID ibuprofen 400 mg PO Q6H PRN omeprazole 40 mg PO DAILY phentermine 37.5 mg PO QAM sumatriptan succinate take 1 tab at onset of headache; if no relief may repeat 1 tab after at least 2 hrs; max = 4 tabs/24 hr PO thiamine HCl (vitamin B1) 100 mg PO DAILY Tobacco use date assessed: 02/16/25 Dental Screening Dental Screen Date: 02/16/25 Did you have a dental visit in the last 12 months?: Yes Did you have a dental problem in the last 6 months where you did not have access to dental care?: No Was dental information given to patient?: Patient has dentist HPI GERRI Dr Gamble /Headaches HPI Details HPI Comments History of Present Illness Details The patient is a 34-year-old female presenting for management of bilateral arm paresthesia and uncontrolled headaches. She reports the onset of tingling and numbness in both hands and arms approximately a month and a half ago, affecting four fingers on each hand but sparing one finger. 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 Compressing her wrist and antecubital areas elicits pain and tingling. She has an EMG scheduled for February 28. The patient also suffers from uncontrolled headaches, which present as migraines. These headaches can last for days and are accompanied by sensitivity to heat, noise, and light. A recent severe episode required her to miss work. She describes an aura of a sharp, stabbing pain behind her left eye and sometime right eye alternatively, or in the middle of her head, which can switch sides. Sumatriptan 25 mg, prescribed at an urgent care visit, was ineffective, as were Tylenol and ibuprofen. She previously saw a neurologist about three years ago. The patient is taking omeprazole for frequent heartburn, which is generally effective. Her medication regimen includes an iron supplement, which causes significant constipation with bowel movements occurring only once or twice a week, phentermine for weight loss, and supplements for previously diagnosed thiamine and vitamin D deficiencies. She reports a history of recurrent UTIs and has undergone tubal ligation. Health Maintenance - Weight management: Patient is taking p hentermine for weight loss. - Nutrition: Patient reports adequate wa ter intake of 64-128 ounces per day. - Supplementation: Patient is on supplem ents for iron, vitamin B1, and vitamin D deficiencies. - Referrals: Referrals made to neurology for headache management and a hand specialist for paresthesias. - Follow-up: Patient advised to follow u p in 4 months, with repeat labs to be drawn a week prior to the visit. 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 - Hydration: Reports drinking one to two 64-ounce bottles of water daily. Results - Labs: History of low vitamin B1 and lo w vitamin D. - Urinalysis: Recent test was positive f or nitrates. - Urine Culture: A recent culture was ne gative. - Diagnostics: An EMG has been ordered a nd is scheduled for February 28. [facility] Medical History Physical exam Morbid obesity Acute cholecystitis Gallstones Gallstone Surgical History Status post cholecystectomy History of laparoscopic cholecystectomy History of 3 sections History of tubal ligation Family History Father HTN (hypertension) Diabetes Mother No problems noted. Maternal Grandfather Prostate cancer Sister No problems noted. Sister No problems noted. Sister No problems noted. Sister No problems noted. Sister No problems noted. Son No problems noted. Daughter No problems noted. Daughter No problems noted. Social History Household Members: Children Housing: Apartment Do you presently have visiting nurse or other home services: No Alcohol intake: current Alcohol intake frequency: holidays/special occasions only Patient Tobacco Use Status: Never used Tobacco e-Cigarette/Vaping Use: Never Used Second Hand Smoke Exposure: No Substance Use Type: Marijuana service: No Current occupational status: student Cognitive needs: No Hearing needs: No Vision needs: No Female Reproductive History Menstrual Age of Menarche: 11 Questionnaire PHQ-9 Over the last 2 weeks, how often have you been bothered by any of the following problems? 1. Little interest or pleasure in doing things: not at all 2. Feeling down, depressed, or hopeless: not at all 3. Trouble falling or staying asleep, or sleeping too much: not at all 4. Feeling tired or having little energy: not at all 5. Poor appetite or overeating: not at all 6. Feeling bad about yourself - or that you are a failure or have let yourself or your family down: not at all 7. Trouble concentrating on things, such as reading the newspaper or watching television: not at all 8. Moving or speaking so slowly that other people could have noticed. Or the opposite - being so fidgety or restless that you have been moving around a lot more than usual: not at all 9. Thoughts that you would be better off or of hurting yourself in some way: not at all Total score: 0 Source: Developed by Drs. Broderick Sam, Shanon Ken, Ramirez Kelly and colleagues, with an educational christy from [employer]. Thrive Questionnaire Date Thrive assessed: 02/16/25 I am a: Patient What is your living situation today?: I have a steady place to live Within the past 12 months, did the food you bought not last and you didn't have the money to get more?: Sometimes True Within the past 12 months, did you worry whether your food would run out before you got money to buy more?: Never true Do you have trouble paying for medicines?: No Do you have trouble getting transportation to medical appointments?: No Do you have trouble paying your heating and electricity bill?: No Do you have trouble taking care of your child, family member or friend?: No Do you have trouble with day-to-day activities such as bathing, preparing meals, shopping, managing finances, etc.?: No Are you currently unemployed and looking for a job?: No Are you interested in more education?: Yes Please select the resources that you would like help with: None Currently or been in a relationship where the following occur: No concerns reported THRIVE Score: 1 AUDIT C Alcohol Use Questionnaire (AUDIT-C) 1. How often do you have a drink containing alcohol?: Monthly or less 2. How many drinks containing alcohol do you have on a typical day when you are drinking?: 1 or 2 3. How often do you have six or more drinks on one occasion?: Never Total Score: 1 PADMINI-7 AMB Questionnaire PADMINI-7 Date PADMINI - 7 assessed: 04/15/24 Feeling nervous, anxious, or on edge: 0 = Not at all Not being able to stop or control worryin = Not at all Worrying too much about different things: 0 = Not at all Trouble relaxin = Not at all Being so restless that it is hard to sit still: 0 = Not at all Becoming easily annoyed or irritable: 0 = Not at all Feeling afraid as if something awful might happen: 0 = Not at all Total PADMINI-7 score (0-4 normal; 5-9 mild; 10-14 moderate; 15-21 severe): 0 Source: Developed by Drs. Broderick Sam, Shanon Ken, Ramirez Kelly and colleagues, with an educational christy from [employer]. Review of Systems Narrative Review of Systems - Neurological: Reports tingling and numbness in both hands and arms, which is constant but worsens at night and with physical activity. - Reports suffering from severe headaches lasting for days, with associated sensitivity to heat, noise, and light. - Reports an aura of sharp, stabbing pain behind her eyes prior to headache onset. - Gastrointestinal: Reports frequent heartburn, which is mostly controlled with omeprazole. - Reports constipation with bowel movements occurring once every few days to once a week. - Genitourinary: Reports a history of frequent urinary tract infections. - Constitutional: Reports feeling weak during headaches. Const Reports headache(s) (migraines) Eyes Denies loss of vision ENT Denies vertigo, Denies dizziness, Reports headache(s) (migraines) and Denies sore throat Card Denies chest pain, Denies leg edema and Denies lightheadedness Resp Denies cough, Denies hemoptysis and Denies wheezing GI Denies abdominal pain, Denies melena, Reports constipation, Reports heartburn (on and off), Denies diarrhea and Denies vomiting Denies urinary frequency, Denies dysuria and Denies urinary urgency Musc Denies arthralgias, Denies joint swelling, Reports numbness and Reports tingling Neuro Reports Abnormal speech present, Denies behavioral changes, Denies vertigo, Denies dizziness, Reports headache(s) (migraines), Denies loss of vision, Denies memory loss, Reports numbness and Reports tingling Psych Denies anxiety, Denies behavioral changes, Denies depression, Denies memory loss and Denies panic attacks Devante/Lymph Denies easy bleeding and Denies easy bruising Aller/Immun Denies wheezing Physical exam (Primary Care) Vital Signs: Last Vital Signs Pulse 84 02/16/25 11:26 Resp 18 02/16/25 11:26 BP 120/60 02/16/25 11:26 Pulse Ox 98 02/16/25 11:26 Oxygen Delivery Method Room Air 02/16/25 11:26 BMI result Body Mass Index 44.7 Tobacco/Smoking Status: Tobacco use Status Tobacco use date assessed 02/16/25 02/16/25 11:39 Patient Tobacco Use Status Never used Tobacco 02/16/25 11:39 e-Cigarette/Vaping Use Never Used 02/16/25 11:39 PHQ-9: PHQ-9 Score PHQ-9: Total score 0 02/16/25 14:46 Thrive Assessment: Date of Thrive Assessment Date Thrive assessed 02/16/25 02/16/25 11:39 Currently or been in a relationship where the following occur: No concerns reported Narrative Physical Exam - Respiratory: Lungs are clear to auscultation bilaterally. - Neurological: Compression of the wrist elicits pain and reproduces tingling and numbness in the hand, suggestive of a positive Tinel's sign. Const General: healthy appearing [facility] Head: Yes normal to inspection Ears: hearing grossly normal bilaterally General nose exam: Normal external nose present Eyes Pupils: Equal, round and reactive pupils present Neck Neck: Yes normal visual inspection and Yes no lymphadenopathy Thyroid: Thyroid normal Chest Chest palpation & inspection: normal inspection of the chest Resp Effort & Inspection: normal respiratory effort Auscultation: clear to auscultation bilaterally Cardio Rate: regular rate Rhythm: regular rhythm Heart sounds: S1 normal heart sound present, S2 normal heart sound present and no murmurs GI Inspection: Yes obesity Palpation (GI): Soft to palpation, nontender and No hepatosplenomegaly present Auscultation: normal bowel sounds General: Yes no CVA tenderness Back/Spine/Pelvis Back: no CVA tenderness Skin General skin exam: no rashes or lesions noted Neuro General: no focal motor deficits Cranial nerves: Yes CN's II-XII intact bilaterally and Yes Equal, round and reactive pupils present Speech: Abnormal speech present Gait exam (Neuro): Normal gait present Motor exam (neuro): 5/5 motor strength present throughout Extrem General: Yes full ROM Right lower extremity: full ROM; no edema Left lower extremity: full ROM; no edema Psych Appearance: grossly normal Affect: normal affect Attitude: cooperative Thought content: Normal thought content present Coding Level of Care Code Est Pt Level 4 (19655) Diagnoses Anemia, unspecified type D64.9 Anemia type: unspecified type Migraine without status migrainosus, not intractable, unspecified migraine type G43.909 Migraine type: unspecified Status migrainosus presence: without status migrainosus Intractability: not intractable Numbness and tingling in left arm R20.0; R20.2 Carpal tunnel syndrome, bilateral G56.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 Chest pain due to GERD K21.9; R07.9 Morbid obesity E66.01 Constipation, unspecified constipation type K59.00 Constipation type: unspecified constipation type Time Spent (min) 38 Assessment & Plan Assessment & Plan (1) Anemia: Code(s): D64.9 - Anemia, unspecified Category: Medical Qualifiers: Anemia type: unspecified type Qualified Code(s): D64.9 - Anemia, unspecified (2) Migraines: Code(s): G43.909 - Migraine, unspecified, not intractable, without status migrainosus Category: Medical Qualifiers: Migraine type: unspecified Status migrainosus presence: without status migrainosus Intractability: not intractable Qualified Code(s): G43.909 - Migraine, unspecified, not intractable, without status migrainosus (3) Numbness and tingling in left arm: Code(s): R20.0 - Anesthesia of skin; R20.2 - Paresthesia of skin Category: Medical (4) Carpal tunnel syndrome, bilateral: Code(s): G56.03 - Carpal tunnel syndrome, bilateral upper limbs Category: Medical (5) Vitamin B1 deficiency neuropathy: Code(s): 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 - Dry beriberi Category: Medical (6) Chest pain due to GERD: Code(s): K21.9 - Gastro-esophageal reflux disease without esophagitis; R07.9 - Chest pain, unspecified Category: Medical (7) Morbid obesity: Code(s): E66.01 - Morbid (severe) obesity due to excess calories Category: Medical (8) Constipation: Code(s): K59.00 - Constipation, unspecified Category: Medical Qualifiers: Constipation type: unspecified constipation type Qualified Code(s): K59.00 - Constipation, unspecified Plan Plan Patient was informed and verbally consented to the use of an ambient scribe for clinic note documentation during this visit. 1. Paresthesia Of Upper Limbs The patient's bilateral upper extremity paresthesia, which worsens at night and with activity, is concerning for nerve compression, such as carpal tunnel or cubital tunnel syndrome. A referral will be placed to a hand specialist for further evaluation, and it will be noted that an EMG is already scheduled for February 28. For symptomatic relief of neuropathic pain, particularly at night, gabapentin 30 mg will be started at bedtime to assess tolerance. 2. Migraine The patient's headaches are uncontrolled and consistent with migraine with aura, given her report of sensitivity to light and sound, and a preceding sharp, stabbing pain behind her eyes. A referral is being made to neurology for specialized management. In the interim, the dose of sumatriptan for abortive therapy will be increased to 50 mg, to be taken with Motrin at the onset of a headache. For prevention, the patient will start magnesium oxide 400 mg at bedtime and vitamin B2 (riboflavin) daily. The patient was advised to maintain a headache diary to provide to the neurologist. 3. Constipation The patient's constipation is a likely side effect of her iron supplementation. It is recommended she start MiraLax twice daily until her bowel movements are regular, then she can reduce the frequency. Senna S is prescribed for as-needed use for breakthrough constipation. The importance of adequate fluid intake was reinforced, and the patient was informed that managing constipation can help prevent UTIs. 4. Nutritional Deficiencies The patient has a history of low vitamin B1 and vitamin D. She will continue her current supplements, and repeat labs will be ordered to perform one week prior to her follow-up appointment in four months. 5. Gastroesophageal Reflux Disease The patient's heartburn is well-managed with omeprazole. She is taking it correctly, one hour before eating, and will continue the current regimen. 6. Anemia Continues iron supplements with continue to monitor cbc regularly. Discussion Notes I discussed with the patient that her bilateral arm tingling and numbness is likely due to nerve compression, potentially carpal tunnel and/or cubital tunnel syndrome. I have placed a referral to a hand specialist for further evaluation and noted her upcoming EMG. For symptomatic relief of her nerve pain, which is worse at night, I prescribed a low starting dose of gabapentin to be taken at bedtime, explaining that it may cause drowsiness. We addressed her uncontrolled migraines, and I explained the various treatment options available through a neurologist, including different medications and procedures like Botox, while clarifying that a consultation does not obligate her to any specific treatment. I am referring her to Neurology for specialized management. In the meantime, I have increased her sumatriptan dose to 50mg and advised her to take it in combination with Motrin for acute attacks. I also started her on preventative therapy with magnesium oxide and vitamin B2 and advised her to keep a headache diary. I explained that her constipation is likely a side effect of her iron supplement and recommended starting daily MiraLax, which is available [id number]. I also prescribed Senna S for as-needed use and explained that managing her constipation could help reduce her risk of UTIs. I reviewed her current medications, including the optimal timing for taking omeprazole and phentermine. I have ordered repeat labs to monitor her vitamin levels. We will follow up in 4 months, with labs to be done one week prior to the visit. Patient Instructions - A referral has been sent to a hand specialist for your hand numbness and tingling. - Your nerve test (EMG) is scheduled for February 28. - I have prescribed Gabapentin to help with the nerve pain. - Take it at night as it may make you drowsy. - For your headaches, a referral has been sent to a neurologist. - To treat a severe headache, take your usual dose of Motrin first. - About 45 minutes later, take the new Sumatriptan 50 mg prescription. - Do not take more than 4 tablets in 24 hours. - To help prevent headaches, start taking Vitamin B2 every day and Magnesium Oxide 400 mg at bedtime. - For constipation, take MiraLax twice a day until your bowel movements become regular. - You can buy this over the counter. - If you are still constipated, you can use the prescribed Senna S as needed. - Remember to drink plenty of water. - Take your Omeprazole and Phentermine on an empty stomach about an hour before you eat. - You can take both medications at the same time. - Please get blood work done about one week before your next appointment. - Schedule a follow-up visit in 4 months. Orders: Orders Comprehensive [place]. Panel Fast 4 Months D64.9 - Anemia, unspecified, E50.9 - Vitamin A deficiency, unspecified, E51.11 - Dry beriberi, E51.9 - Thiamine deficiency, unspecified, E53.8 - Deficiency of other specified B group vitamins, E55.9 - Vitamin D deficiency, unspecified, E66.01 - Morbid (severe) obesity due to excess calories, G43.909 - Migraine, unspecified, not intractable, without status migrainosus, G56.03 - Carpal tunnel syndrome, bilateral upper limbs, K21.9 - Gastro-esophageal reflux disease without esophagitis, R07.9 - Chest pain, unspecified, R20.0 - Anesthesia of skin, R20.2 - Paresthesia of skin, R40.0 - Somnolence Lipid Panel 4 Months D64.9 - Anemia, unspecified, E50.9 - Vitamin A deficiency, unspecified, E51.11 - Dry beriberi, E51.9 - Thiamine deficiency, unspecified, E53.8 - Deficiency of other specified B group vitamins, E55.9 - Vitamin D deficiency, unspecified, E66.01 - Morbid (severe) obesity due to excess calories, G43.909 - Migraine, unspecified, not intractable, without status migrainosus, G56.03 - Carpal tunnel syndrome, bilateral upper limbs, K21.9 - Gastro-esophageal reflux disease without esophagitis, R07.9 - Chest pain, unspecified, R20.0 - Anesthesia of skin, R20.2 - Paresthesia of skin, R40.0 - Somnolence TSH reflex Free T4 4 Months D64.9 - Anemia, unspecified, E50.9 - Vitamin A d eficiency, unspecified, E51.11 - Dry beriberi, E51.9 - Thiamine deficiency, unspecified, E53.8 - Deficiency of other specified B group vitamins, E55.9 - Vitamin D deficiency, unspecified, E66.01 - Morbid (severe) obesity due to excess calories, G43.909 - Migraine, unspecified, not intractable, without status migrainosus, G56.03 - Carpal tunnel syndrome, bilateral upper limbs, K21.9 - Gastro-esophageal reflux disease without esophagitis, R07.9 - Chest pain, unspecified, R20.0 - Anesthesia of skin, R20.2 - Paresthesia of skin, R40.0 - Somnolence Vitamin D 25-OH Total 4 Months D64.9 - Anemia, unspecified, E50.9 - Vitamin A deficiency, unspecified, E51.11 - Dry beriberi, E51.9 - Thiamine deficiency, unspecified, E53.8 - Deficiency of other specified B group vitamins, E55.9 - Vitamin D deficiency, unspecified, E66.01 - Morbid (severe) obesity due to excess calories, G43.909 - Migraine, unspecified, not intractable, without status migrainosus, G56.03 - Carpal tunnel syndrome, bilateral upper limbs, K21.9 - Gastro-esophageal reflux disease without esophagitis, R07.9 - Chest pain, unspecified, R20.0 - Anesthesia of skin, R20.2 - Paresthesia of skin, R40.0 - Somnolence Vitamin B12 and Folate 4 Months D64.9 - Anemia, unspecified, E50.9 - Vitamin A deficiency, unspecified, E51.11 - Dry beriberi, E51.9 - Thiamine deficiency, unspecified, E53.8 - Deficiency of other specified B group vitamins, E55.9 - Vitamin D deficiency, unspecified, E66.01 - Morbid (severe) obesity due to excess calories, G43.909 - Migraine, unspecified, not intractable, without status migrainosus, G56.03 - Carpal tunnel syndrome, bilateral upper limbs, K21.9 - Gastro-esophageal reflux disease without esophagitis, R07.9 - Chest pain, unspecified, R20.0 - Anesthesia of skin, R20.2 - Paresthesia of skin, R40.0 - Somnolence IRON PROFILE Today D64.9 - Anemia, unspecified, E50.9 - Vitamin A deficiency, unspecified, E51.11 - Dry beriberi, E51.9 - Thiamine deficiency, unspecified, E53.8 - Deficiency of other specified B group vitamins, E55.9 - Vitamin D deficiency, unspecified, E66.01 - Morbid (severe) obesity due to excess calories , G43.909 - Migraine, unspecified, not intractable, without status migrainosus, G56.03 - Carpal tunnel syndrome, bilateral upper limbs, K21.9 - Gastro- esophageal reflux disease without esophagitis, R07.9 - Chest pain, unspecified, R20.0 - Anesthesia of skin, R20.2 - Paresthesia of skin, R40.0 - Somnolence Complete Blood Count Auto Diff 4 Months D64.9 - Anemia, unspecified, E50.9 - Vitamin A deficiency, unspecified, E51.11 - Dry beriberi, E51.9 - Thiamine deficiency, unspecified, E53.8 - Deficiency of other specified B group vitamins, E55.9 - Vitamin D deficiency, unspecified, E66.01 - Morbid (severe) obesity due to excess calories, G43.909 - Migraine, unspecified, not intractable, without status migrainosus, G56.03 - Carpal tunnel syndrome, bilateral upper limbs, K21.9 - Gastro-esophageal reflux disease without esophagitis, R07.9 - Chest pain, unspecified, R20.0 - Anesthesia of skin, R20.2 - Paresthesia of skin, R40.0 - Somnolence UA CC w/rflx Micro + Cult 4 Months D64.9 - Anemia, unspecified, E50.9 - Vitamin A deficiency, unspecified, E51.11 - Dry beriberi, E51.9 - Thiamine deficiency, unspecified, E53.8 - Deficiency of other specified B group vitamins, E55.9 - Vitamin D deficiency, unspecified, E66.01 - Morbid (severe) obesity due to excess calories, G43.909 - Migraine, unspecified, not intractable, without status migrainosus, G56.03 - Carpal tunnel syndrome, bilateral upper limbs, K21.9 - Gastro-esophageal reflux disease without esophagitis, R07.9 - Chest pain, unspecified, R20.0 - Anesthesia of skin, R20.2 - Paresthesia of skin, R40.0 - Somnolence Vitamin B6 4 Months D64.9 - Anemia, unspecified, E50.9 - Vitamin A deficiency, unspecified, E51.11 - Dry beriberi, E51.9 - Thiamine deficiency, unspecified, E53.8 - Deficiency of other specified B group vitamins, E55.9 - Vitamin D deficiency, unspecified, E66.01 - Morbid (severe) obesity due to excess calories, G43.909 - Migraine, unspecified, not intractable, without status migrainosus, G56.03 - Carpal tunnel syndrome, bilateral upper limbs, K21.9 - Gastro-esophageal reflux disease without esophagitis, R07.9 - Chest pain, unspecified, R20.0 - Anesthesia of skin, R20.2 - Paresthesia of skin, R40.0 - Somnolence Magnesium 4 Months D64.9 - Anemia, unspecified, E50.9 - Vitamin A deficiency, unspecified, E51.11 - Dry beriberi, E51.9 - Thiamine deficiency, unspecified, E53.8 - Deficiency of other specified B group vitamins, E55.9 - Vitamin D deficiency, unspecified, E66.01 - Morbid (severe) obesity due to excess calories, G43.909 - Migraine, unspecified, not intractable, without status migrainosus, G56.03 - Carpal tunnel syndrome, bilateral upper limbs, K21.9 - Gastro-esophageal reflux disease without esophagitis, R07.9 - Chest pain, unspecified, R20.0 - Anesthesia of skin, R20.2 - Paresthesia of skin, R40.0 - Somnolence Vitamin B1 Today D64.9 - Anemia, unspecified, E50.9 - Vitamin A deficiency, unspecified, E51.11 - Dry beriberi, E51.9 - Thiamine deficiency, unspecified, E53.8 - Deficiency of other specified B group vitamins, E55.9 - Vitamin D deficiency, unspecified, E66.01 - Morbid (severe) obesity due to excess calories, G43.909 - Migraine, unspecified, not intractable, without status migrainosus, G56.03 - Carpal tunnel syndrome, bilateral upper limbs, K21.9 - Gastro-esophageal reflux disease without esophagitis, R07.9 - Chest pain, unspecified, R20.0 - Anesthesia of skin, R20.2 - Paresthesia of skin, R40.0 - Somnolence Referrals 2 Neurology Referral G43.909 - Migraine, unspecified, not intractable, without status migrainosus Orthopedics Referral G56.03 - Carpal tunnel syndrome, bilateral upper limbs Medications: New sennosides-docusate sodium 8.6-50 mg (Senna with Docusate Sodium) 1 tab-cap PO DAILY PRN 30 tabs 3RF constipation polyethylene glycol 3350 (Miralax) 17 grams PO BID 476 grams 3RF magnesium oxide 400 mg PO BEDTIME 90 tabs 3RF riboflavin (vitamin B2) 400 mg PO DAILY 90 tabs 3RF sumatriptan succinate take 1 tab at onset of headache; if no relief may repeat 1 tab after at least 2 hrs; max = 4 tabs/24 hr PO 14 tabs 0RF gabapentin may take 1-2 cap at bedtime for neuralgia 100 mg PO BEDTIME 30 caps 1RF Discontinued sumatriptan succinate Discontinued Reason: Duplicate take 1 tab at onset of headache; if no relief may repeat 1 tab after at least 2 hrs; max = 4 tabs/24 hr PO 7 tabs 0RF
[2025-02-16 11:26] VITALS: BP 120/60; PULSE 84; RESP 18; O2SAT 98; BMI 44.7
== END 2025-02-16 12:17 | disposition home or self-care (01) ==
LOC: HO.HMCH 11:22
DX: D64.9 Anemia, unspecified (principal); G43.909 Migraine, unspecified, not intractable, without status migrainosus; R20.0 Anesthesia of skin; R20.2 Paresthesia of skin; G56.03 Carpal tunnel syndrome, bilateral upper limbs; E51.11 Dry beriberi; K21.9 Gastro-esophageal reflux disease without esophagitis; R07.9 Chest pain, unspecified; K59.00 Constipation, unspecified

== ENCOUNTER → 2025-02-16 11:21 | Outpatient (BNVA) | payer OTHER, SELFPAY | DX: G43.909 Migraine, unspecified, not intractable, without status migrainosus (principal); D64.9 Anemia, unspecified; R20.0 Anesthesia of skin; R20.2 Paresthesia of skin; R07.9 Chest pain, unspecified; G56.03 Carpal tunnel syndrome, bilateral upper limbs; E51.11 Dry beriberi; E66.01 Morbid (severe) obesity due to excess calories; K21.9 Gastro-esophageal reflux disease without esophagitis; K59.00 Constipation, unspecified | CPT/HCPCS: 99212 ==

== ENCOUNTER 2025-02-28 12:57 | Outpatient (REF) | payer OTHER, SELFPAY ==
--- NOTE | 2025-02-28 12:57 | EMG_ITS ---
Chief complaint: Bilateral numbness and tingling Referred by:?Dr Brea Fair Procedure done: Bilateral upper extremities NCS/EMG Bilateral median and ulnar motor studies were performed. Bilateral median and ulnar mixed sensory and 2nd and 5th digit sensory studies were performed and bilateral radial sensory studies were performed. EMG was performed. Findings: Bilateral median motor distal latencies were moderately prolonged. Similar pattern was noted with median mixed sensory studies with [id number] slowing of conduction velocity. Impression: Moderate right and [id number] left median neuropathy across carpal tunnel [place] [address]97 2 extremities MTDD
== END 2025-02-28 12:58 | disposition home or self-care (01) ==
LOC: HO.NEURO 12:57
PROVIDERS: Visit Provider Internal Medicine
DX: R20.2 Paresthesia of skin (principal); R20.0 Anesthesia of skin
CPT/HCPCS: 95886; 95913

== ENCOUNTER → 2025-02-28 12:57 | Outpatient (BNV) | payer OTHER, SELFPAY | PROVIDERS: Visit Provider Psychiatry & Neurology Neurology | DX: G56.03 Carpal tunnel syndrome, bilateral upper limbs (principal) | CPT/HCPCS: 95886; 95913 ==